=== PATIENT | male | born 1930 | race Caucasian/White ===

== ENCOUNTER 2017-01-17 15:13 | Inpatient (IN) | payer OTHER ==
[~2017-01-17] VITALS: Ht 172.7 cm; Wt 68.5 kg
[~2017-01-17 15:13] MED LIST: AMIO200T4 PO; CITA10TA4 PO; CLOP1TAB15 PO; FAMO20TA9 PO; FRS/40 PO; GLC/500 PO; LEVO75TA PO; MAGN400T6 PO; METO5TAB2 PO; NTRGSL/4 SL; OXGN; POLY335025 PO; POTA20TA13 PO; ROSU5TAB PO
[2017-01-17] MEDS ORDERED: PILO5TAB10 PO (16:02)
[2017-01-17] MEDS ORDERED: OXGN (16:02)
[2017-01-17] MEDS ORDERED: CARV3.122 PO (16:02)
[2017-01-17] MEDS ORDERED: LEVO100T PO (16:02)
[2017-01-17 16:35] LABS: URINE APPEARANCE CLEAR (CLEAR); URINE BILIRUBIN NEG (NEG); URINE COLOR DK YELLOW; URINE NITRITE NEG (NEG); URINE SPECIFIC GRAVITY 1.022 (1.000-1.030); UROBILINOGEN NEG (NEG)
[2017-01-17 16:41] LABS: MANUAL MICROSCOPIC REQUIRED? NO; REVIEW REQ? NO
--- NOTE | 2017-01-17 16:56 | DIAGNOSTIC IMAGING REPORT ---
CHEST ONE VIEW PORTABLE CLINICAL HISTORY: Cough. Hypoxia. COMPARISON STUDY: Chest radiograph July 23, 2013. FINDINGS: There are median sternotomy wires. Moderate cardiomegaly is unchanged. 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 There is no pneumothorax. Hazy left basilar opacity likely reflects epicardial fat pad. Right lower lung opacity is noted. There is a possible small right pleural effusion. IMPRESSION: 1. Right infrahilar opacity. Atelectasis is favored although consolidation could appear similar. 2. Moderate cardiomegaly with redemonstration of a peripherally calcified left ventricular apical aneurysm. No evidence of pulmonary edema. 3. Possible small right pleural effusion. Electronically signed by: Aureliano Liu M.D. 01/17/2017 4:55 PM Dictated Date/Time: 01/17/2017 4:51 PM
[2017-01-17] MEDS ORDERED: LEVAQUIN 750MG / 150ML D5W IV STA (17:14)
[2017-01-17 17:15] LABS: BASO % 0.3 %; BASO ABS # 0.02 K/uL (0-0.2); COMPLETE YES; EOS % 0.1 %; HEMATOCRIT 40.1 % (42-52); IG% 0.1 %; LYMPH % 15.9 %; LYMPH ABS # 1.07 K/uL (1.2-3.4); MEAN CELL VOLUME 95.7 fL (80-100); MEAN CORPUSCULAR HEMOGLOBIN 29.8 pg (25-34); MEAN CORPUSCULAR HGB CONC 31.2 g/dl (32-36); MEAN PLATELET VOLUME 10.7 fL (7.4-10.4); MONO % 14.4 %; NEUT % 69.2 %; PLATELET COUNT 209 K/uL (130-400); RED BLOOD COUNT 4.19 M/uL (4.7-6.1); WHITE BLOOD COUNT 6.73 K/uL (4.8-10.8)
[2017-01-17 17:36] LABS: BUN/CREATININE RATIO 19.2 (10-20); CALCIUM 8.6 mg/dl (8.5-10.1); CREATININE 1.3 mg/dl (0.60-1.40); MAGNESIUM 2.5 mg/dl (1.8-2.4); POTASSIUM 4.6 mmol/L (3.5-5.1)
[2017-01-17 17:47] LABS: CKMB/CK RATIO 0.9 (0-3.0); THYROID STIMULATING HORMONE 1.19 uIu/ml (0.300-4.500)
[2017-01-17] MEDS ORDERED: CONSULT PHARMACY STA (19:27)
[2017-01-17] MEDS ORDERED: ALBUT/IPRATROP 3MG/0.5MG NEB 3 ML VIAL INH PRN (19:30)
[2017-01-17] MEDS ORDERED: ACETAMINOPHEN 325 MG TAB PO PRN (19:30)
[2017-01-17] MEDS ORDERED: ONDANSETRON INJ 2 MG/ML 2 ML VIAL IV PRN (19:30)
[2017-01-17] MEDS ORDERED: LEVOFLOXACIN CONSULT ACTIVE PRN (19:45)
[2017-01-17] MEDS ORDERED: GLUCOSE 10 TABS/TUBE PO PRN (19:45)
[2017-01-17] MEDS ORDERED: GLUCOSE 40% GEL 15 GM TUBE PO PRN (19:45)
[2017-01-17] MEDS ORDERED: GLUCAGON FOR INJ 1 MG VIAL SQ PRN (19:45)
[2017-01-17] MEDS ORDERED: DEXTROSE 50% 50 ML SYR IV PRN (19:45)
[2017-01-17] MEDS ORDERED: PIPERACILL/TAZOBAC CONSULT ACTIVE PRN (19:45)
[2017-01-17] MEDS ORDERED: NITROGLYCERIN 0.4 MG SL PER TAB CHARGE SL SCH (19:45)
--- NOTE | 2017-01-17 19:56 | History and Physical ---
History & Physical Date & Time of Service: Jan 17, 2017 at 19:33 Chief Complaint: Cold W/Sorethroat X 2 Days, Weakness, Not Eating Primary Care Physician: Erich Moreno M.D. History of Present Illness Source: patient, family, clinic records, hospital records Patient seen and examined. 86 year old male with complex PMHx including, PAF, CAD s/p CABG, stent, systolic CHF, h/o CVA, CKD stage 3, DM2, h/o oral CA and other problems listed below presents to the ED complaining of sore throat, cough x 4 days. Patient reports his throat feels very sore. He reports associated cough that is wet but nonproductive. He states he hasn't been feeling well and feels generally weak so he came to the ED for further evaluation. He has a history of oral CA s/p surgery and he states he chokes almost every time he eats. He denies fevers, chills, rhinorrhea, chest pain, SOB , nausea, vomiting, diarrhea, dysuria, calf pain and edema. He does not use oxygen at home. He denies sick contacts. In the ED patient is hypoxic otherwise VS are stable. CXR shows infiltrate. There is no leukocytosis, PRP is unremarkable. He received supplemental oxygen and levaquin. He feels much better and is resting comfortably. He will be admitted for further workup and treatment. Past Medical/Surgical History Medical Problems: (1) Atrial fibrillation Status: Chronic (2) BPH (benign prostatic hyperplasia) Status: Chronic (3) Carotid stenosis Status: Chronic (4) CKD (chronic kidney disease), stage III Status: Chronic (5) Coronary artery disease Status: Chronic (6) CVA (cerebrovascular accident) Status: Resolved (7) Depression Status: Chronic (8) DM2 (diabetes mellitus, type 2) Status: Chronic (9) HLD (hyperlipidemia) Status: Chronic (10) HTN (hypertension) Status: Chronic (11) Hypertension Status: Chronic (12) Hypothyroid Status: Chronic (13) Lymphoma Status: Resolved (14) Oral mass Status: Chronic (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 (16) Skin lesion Status: Chronic (17) Status post left heart catheterization (LHC) Status: Chronic (18) Stroke Status: Chronic (19) Systolic congestive heart failure Permanent Comment: echo 12/13/09 demonstrated LVEF 15-20% Status: Chronic Surgical Problems: (1) H/O endarterectomy Status: Chronic (2) H/O neck surgery Status: Chronic (3) H/O oral surgery Status: Chronic (4) H/O splenectomy Status: Chronic (5) History of appendectomy Status: Chronic (6) History of gastric surgery Status: Chronic (7) History of mandibular surgery Status: Chronic (8) History of pancreatic surgery Status: Chronic (9) Hx of CABG Status: Chronic (10) S/P cholecystectomy Status: Chronic Family History FH: cancer FH: heart disease Social History Smoking Status: Never Smoker Alcohol Use: none Marital Status: Housing status: lives with family Occupational Status: retired Immunizations History of Influenza Vaccine: Yes Influenza Vaccine Date: Jul 21, 2010 History of Tetanus Vaccine?: Unknown History of Pneumococcal: No Pneumococcal Date: Oct 29, 2005 History of Hepatitis B Vaccine: Unknown Multi-Drug Resistant Organisms History of MDRO: No Allergies Coded Allergies: Aspirin (Verified Adverse Reaction, Severe, INCREASED BLEEDING, 01/17/17) Atorvastatin (Verified Adverse Reaction, Unknown, JOINT PAIN, 01/17/17) Simvastatin (Verified Adverse Reaction, Unknown, JOINT PAIN, 01/17/17) Home Medications Scheduled Amiodarone Hcl (Cordarone), 100 MG PO DAILY Carvedilol (Coreg), 3.125 MG PO BIDM Citalopram Hydrobromide (Citalopram Hydrobromide), 10 MG PO DAILY Clopidogrel (Plavix), 75 MG PO DAILY Furosemide (Lasix), 20 MG PO BID Levothyroxine Sodium (Synthroid), 100 MCG PO QAM Magnesium Oxide (Mag-Ox), 400 MG PO QAM Metformin Hcl (Glucophage), 500 MG PO BID Metoclopramide Hcl (Metoclopramide Hcl), 5 MG PO AC Nitroglycerin (Nitrostat), 0.4 MG SL PRN Pilocarpine (Salagen), 5 MG PO QAM Rosuvastatin Calcium (Crestor), 5 MG PO Q2D Review of Systems Constitutional: + weakness, No chills, No fever Eyes: No worsening of vision ENT: + sore throat, No nasal symptoms Respiratory: + cough, + sputum, No hemoptysis, No shortness of breath Cardiovascular: No chest pain, No edema Abdomen: No constipation, No diarrhea, No nausea, No pain, No vomiting Musculoskeletal: No calf pain, No swelling Genitourinary - Male: No dysuria Neurologic: No numbness/tingling, No vertigo Psychiatric: No depression symptoms Endocrine: No excessive thirst, No fatigue Hematologic / Lymphatic: No abnormal bleeding/bruising, No clotting problems Integumentary: No itch, No rash Allergic / Immunologic: No environmental allergies Physical Exam Vital Signs Date Time Temp Pulse Resp B/P Pulse Ox O2 Delivery O2 Flow Rate FiO2 01/17/17 18:47 70 20 129/74 94 Room Air 01/17/17 17:06 72 18 144/95 92 Nasal Cannula 4.0 01/17/17 15:44 72 01/17/17 15:29 93 Nasal Cannula 2.0 01/17/17 15:27 72 20 144/65 79 Room Air 01/17/17 15:27 93 Nasal Cannula 2.0 01/17/17 15:16 37.4 73 20 133/66 85 Room Air General Appearance: + pertinent finding (Very pleasant WD/WN 86 year old male lying in bed in NAD with son at bedside ) Head: normocephalic, atraumatic Eyes: PERRL, EOMI, sclerae normal ENT: hearing grossly normal, + pharyngeal erythema, + pertinent finding ( evidence of oral surgery right side) Neck: supple, no JVD Respiratory/Chest: chest non-tender, no respiratory distress, no accessory muscle use, + crackles (rights sided crackles, trace left basilar crackles ) Cardiovascular: regular rate, rhythm, no edema, no gallop, no JVD, no murmur, normal peripheral pulses Abdomen/GI: normal bowel sounds, non tender, soft Back: normal inspection, no muscle spasm Extremities/Musculoskelatal: no calf tenderness, normal capillary refill, no pedal edema Neurologic/Psych: alert, oriented x 3, + pertinent finding (no focal deficits noted on gross exam ) Skin: normal color, warm/dry, no rash Diagnostics Laboratory Results Results Past 24 Hours Test 01/17/17 16:10 01/17/17 17:04 01/17/17 17:11 Range/Units Urine Color DK YELLOW Urine Appearance CLEAR CLEAR Urine pH 5.0 4.5-7.5 Urine Specific [place] 1.022 1.000-1.030 Urine Protein NEG NEG Urine Glucose (UA) NEG NEG Urine Ketones 1+ NEG Urine Occult Blood NEG NEG Urine Nitrite NEG NEG Urine Bilirubin NEG NEG Urine Urobilinogen NEG NEG Urine Leukocyte Esterase NEG NEG White Blood Count 6.73 4.8-10.8 K/uL Red Blood Count 4.19 4.7-6.1 M/uL Hemoglobin 12.5 14.0-18.0 g/dL Hematocrit 40.1 42-52 % Mean Corpuscular Volume 95.7 80-100 fL Mean Corpuscular Hemoglobin 29.8 25-34 pg Mean Corpuscular Hemoglobin Concent 31.2 32-36 g/dl Platelet Count 209 130-400 K/uL Mean Platelet Volume 10.7 7.4-10.4 fL Neutrophils (%) (Auto) 69.2 % Lymphocytes (%) (Auto) 15.9 % Monocytes (%) (Auto) 14.4 % Eosinophils (%) (Auto) 0.1 % Basophils (%) (Auto) 0.3 % Neutrophils # (Auto) 4.65 1.4-6.5 K/uL Lymphocytes # (Auto) 1.07 1.2-3.4 K/uL Monocytes # (Auto) 0.97 0.11-0.59 K/uL Eosinophils # (Auto) 0.01 0-0.5 K/uL Basophils # (Auto) 0.02 0-0.2 K/uL RDW Standard Deviation 51.6 36.4-46.3 fL RDW Coefficient of Variation 14.8 11.5-14.5 % Immature Granulocyte % (Auto) 0.1 % Immature Granulocyte # (Auto) 0.01 0.00-0.02 K/uL Sodium Level 138 136-145 mmol/L Potassium Level 4.6 3.5-5.1 mmol/L Chloride Level 98 98-107 mmol/L Carbon Dioxide Level 34 21-32 mmol/L Anion Gap 6.0 3-11 mmol/L Blood Urea Nitrogen 25 7-18 mg/dl Creatinine 1.30 0.60-1.40 mg/dl Est Creatinine Clear Calc Drug Dose 38.7 ml/min Estimated GFR () 56.9 Estimated GFR (Non- 49.1 BUN/Creatinine Ratio 19.2 10-20 Random Glucose 125 70-99 mg/dl Calcium Level 8.6 8.5-10.1 mg/dl Magnesium Level 2.5 1.8-2.4 mg/dl Total Bilirubin 0.9 0.2-1 mg/dl Direct Bilirubin 0.3 0-0.2 mg/dl Aspartate Amino Transf (AST/SGOT) 27 15-37 U/L Alanine Aminotransferase (ALT/SGPT) 23 12-78 U/L Alkaline Phosphatase 71 45-117 U/L Total Creatine Kinase 141 39-308 U/L Creatine Kinase MB 1.2 0.5-3.6 ng/ml Creatine Kinase MB Ratio 0.9 0-3.0 Troponin I 0.021 0-0.045 ng/ml Total Protein 7.7 6.4-8.2 gm/dl Albumin 3.3 3.4-5.0 gm/dl Thyroid Stimulating Hormone (TSH) 1.190 0.300-4.500 uIu/ml Bedside Lactic Acid Venous 1.70 0.90-1.70 mmol/L Microbiology Results 01/17/17 Blood Culture, Received Pending 01/17/17 Blood Culture, Received Pending 01/17/17 Group A Streptococcus Screen - Final, Resulted SPECIMEN NEGATIVE FOR GROUP A BETA ST... 01/17/17 Group A Streptococcus Screen ([facility]), Resulted Pending 01/17/17 Urine Culture, Received Pending Diagnostic Radiology CXR Per radiologist read: IMPRESSION: 1. Right infrahilar opacity. Atelectasis is favored although consolidation could appear similar. 2. Moderate cardiomegaly with redemonstration of a peripherally calcified left ventricular apical aneurysm. No evidence of pulmonary edema. 3. Possible small right pleural effusion. EKG Sinus rhythm with 1st degree AV block, 74 BPM, Qtc 486 Impression Assessment and Plan 86 year old male with multiple comorbid conditions presents to the ED complaining of sorethroat, cough, generalized weakness. CXR with infiltrate. COMMUNITY ACQUIRED PNEUMONIA VERSUS ASPIRATION PNEUMONIA -Admit to tele -high risk for aspiration in setting of previous oral CA and surgery. States he chokes often -no leukocytosis, lactate normal -Empirically treat with Zosyn and Levaquin, pharmacy consulted for dosing -Check blood cultures, sputum cultures -PCR flu pending -supplemental oxygen prn -Duonebs prn SOB -dysphagia screening, aspiration precautions -Speech therapy eval pending -Man thick liquids for now -CBC, PRP in AM ACUTE HYPOXIC RESPIRATORY FAILURE 85% on RA, saturating well on 2L -likely secondary to acute illness -duonebs prn -treatment as above -continue supplemental oxygen as needed, if unable to wean may need 2 step prior to discharge DM2 -A1c pending -Hold po diabetic agents -SSI coverage -BSG AC HS CAD S/P CABG -Stable -follows with [facility] -continue BB, Statin, Plavix SYSTOLIC CHF -LVEF 20-25% -appears euvolemic, VSS -no indication for IVFs at this time -continue Lasix CKD STAGE 3 -stable -avoid nephrotoxic agents as able -follow PRP HLD -continue statin HTN -stable -continue BB, lasix PAF -in sinus rhythm -continue Amiodarone, BB -monitor in tele DEPRESSION -continue Celexa HYPOTHYROIDISM -continue Synthroid H/O LYMPHOMA -intraabdominal, s/p surgery -stable per family H/O ORAL CA -s/p surgery radiation -stable per family DVT PROPHYLAXIS: Sq Lovenox CODE STATUS: LEVEL 3 NO MECHANICAL VENTILATION per my discussion with the patient and his family DISPO:In my clinical judgment this beneficiary meets acute admission criteria, established by [facility], that includes being hospitalized through two midnights. Patient seen in collaboration with Dr. Zaragoza Attending Note: Patient is a 86 yr old male with multiple comorbidities presents with history of worsening weakness, cough and sorethroat. Denies any history of chest pain SOB but he was found to be hypoxic while in ED which improved with supplemental oxygen. He has h/o oral cancer S/P reconstructive surgery and states he chokes on food on most occasions. Denies any fever, chills, sick contacts. Physical Exam: Vitals signs as noted above General Appearance:Moderately built and nourished, no apparent distress Head: normocephalic, Atraumatic, + s/p reconstructive oral surgery Eyes: normal inspection, EOMI, PERRL Neck: supple, Trachea midline Respiratory/Chest: Normal breath sounds, B/L rhonchi Cardiovascular: S1, S2, No murmur Abdomen/GI:Soft, Non tender, Bowel sounds present Extremities/Musculoskelatal:normal inspection, no edema Neurologic/Psych:AAOX3, grossly no focal neurological deficits Skin:normal color,warm S/P mid sternal post surgical scar Assessment and Plan: Acute Hypoxic respiratory Failure CAP/ ? Possible Aspiration pneumonia Admit to Tele Broad spectrum antibiotics to cove anaerobes/atypical Check for FLu Blood/Sputum cultures No signs of sepsis Supplemental Oxygen, Duonebs PRN Screen for aspiration Aspiration precautions I personally reviewed the record. Patient is interviewed and examined at bedside. Patient's care is coordinated with Mary Siddiqui PA-C. Please refer to the documentation above for details of patient's presentation and for discussion of other issues. VTE Prophylaxis VTE Risk Assessment Done? Y/N: Yes Risk Level: Moderate
[2017-01-17 21:05] LABS: INR 1.1 (0.9-1.1); PROTHROMBIN TIME (PATIENT) 11.9 SECONDS (9.0-12.0)
[2017-01-17] MEDS ORDERED: PIPERACILL/TAZOBAC IV 3.375 GM in DEXTROSE 5% 100ML IV ONE (21:15)
[2017-01-17 21:24] VITALS: BP 145/80; PULSE 68; TEMP 36.9; Ht 172.7 cm; Wt 68.5 kg
[2017-01-17 21:41] VITALS: O2SAT 97
[2017-01-17] MEDS: FUROSEMIDE 20 MG TAB PO SCH (21:50)
[2017-01-17] MEDS: DOCUSATE SODIUM 100 MG CAP PO SCH (21:50)
[2017-01-17 22:09] LABS: INFLUENZA A PCR Neg for Influ A (NEG); INFLUENZA B PCR Neg for Influ B (NEG)
[2017-01-17] MEDS: INSULIN ASPART 100 UNITS/ML 3 ML PEN SC SCH (22:48)
--- NOTE | 2017-01-17 22:58 | EMERGENCY ROOM VISIT NOTE ---
History Report prepared by Bertram: Manuelito Garza Under the Supervision of: Dr. Bayron Moyer M.D. First contact with patient: 15:33 Chief Complaint: WEAKNESS Stated Complaint: COLD W/SORETHROAT X 2 DAYS, WEAKNESS, NOT EATING Nursing Triage Summary: Per the son "weaker than usual". Sore throat. No fever that they are aware of . History of Present Illness The patient is an 86 year old male who presents to the Emergency Room with complaints of worsening weakness that the patient has been experiencing for the past two days. Per the patient's son, the patient developed a cough and cold on Wednesday, four days prior to arrival. His cough is producing mucous. He also complains of a sorethroat. Upon arrival to the emergency department the patient was 79% oxygen saturation on room air. The patient has a history of stroke, pneumonia, atrial fibrillation, heart failure, and oral cancer. He has had a portion of his jaw removed following the oral cancer. He has never had any issues aspiration following this procedure. He denies LOC, headache, fevers, chills, diaphoresis, visual changes, neck pain, chest pain, nausea, vomiting, abdominal pain, back pain, melena, hematochezia, urinary symptoms, numbness, weakness, lymphadenopathy, rash, or other complaints. Source of History: patient, family Onset: two days Position: other (Global) Quality: other (Weakness ) Timing: worsening Associated Symptoms: + cough, + sorethroat Review of Systems See HPI for pertinent positives and negatives. A total of ten systems were reviewed and were otherwise negative. 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 Social History Smoking Status: Never Smoker Marital Status: Occupation Status: retired Current/Historical Medications Scheduled Amiodarone Hcl (Cordarone), 100 MG PO DAILY Carvedilol (Coreg), 3.125 MG PO BIDM Citalopram Hydrobromide (Citalopram Hydrobromide), 10 MG PO DAILY Clopidogrel (Plavix), 75 MG PO DAILY Furosemide (Lasix), 20 MG PO BID Levothyroxine Sodium (Synthroid), 100 MCG PO QAM Magnesium Oxide (Mag-Ox), 400 MG PO QAM Metformin Hcl (Glucophage), 500 MG PO BID Metoclopramide Hcl (Metoclopramide Hcl), 5 MG PO AC Nitroglycerin (Nitrostat), 0.4 MG SL PRN Pilocarpine (Salagen), 5 MG PO QAM Rosuvastatin Calcium (Crestor), 5 MG PO Q2D Allergies Coded Allergies: Aspirin (Verified Adverse Reaction, Severe, INCREASED BLEEDING, 01/17/17) Atorvastatin (Verified Adverse Reaction, Unknown, JOINT PAIN, 01/17/17) Simvastatin (Verified Adverse Reaction, Unknown, JOINT PAIN, 01/17/17) Physical Exam Vital Signs Date Time Temp Pulse Resp B/P Pulse Ox O2 Delivery O2 Flow Rate FiO2 01/17/17 18:47 70 20 129/74 94 Room Air 01/17/17 17:06 72 18 144/95 92 Nasal Cannula 4.0 01/17/17 15:44 72 01/17/17 15:29 93 Nasal Cannula 2.0 01/17/17 15:27 72 20 144/65 79 Room Air 01/17/17 15:27 93 Nasal Cannula 2.0 01/17/17 15:16 37.4 73 20 133/66 85 Room Air Physical Exam GENERAL: Awake, alert, well-appearing, in no distress The patient does have a wet cough present on exam. HENT: Normocephalic, atraumatic. mild posterior oropharynx erythema. There are surgical changes to the right side of the mouth. EYES: Normal conjunctiva. Sclera non-icteric. NECK: Supple. No nuchal rigidity. FROM. No JVD. RESPIRATORY: Rhonchi present bilaterally, worse on the right. CARDIAC: Regular rate, normal rhythm. Extremities warm and well perfused. Pulses equal. ABDOMEN: Soft, non-distended. No tenderness to palpation. No rebound or guarding. No masses. RECTAL: Deferred. MUSCULOSKELETAL: Chest examination reveals no tenderness. The back is symmetrical on inspection without obvious abnormality. There is no CVA tenderness to palpation. No joint edema. LOWER EXTREMITIES: Calves are equal size bilaterally and non-tender. No edema. No discoloration. NEURO: Normal sensorium. No sensory or motor deficits noted. SKIN: No rash or jaundice noted. Medical Decision & Procedures ER Provider Diagnostic Interpretation: Radiology results as stated below per my review and radiologist interpretation: CHEST ONE VIEW PORTABLE CLINICAL HISTORY: Cough. Hypoxia. COMPARISON STUDY: Chest radiograph July 23, 2013. FINDINGS: There are median sternotomy wires. Moderate cardiomegaly is unchanged. 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 There is no pneumothorax. Hazy left basilar opacity likely reflects epicardial fat pad. Right lower lung opacity is noted. There is a possible small right pleural effusion. IMPRESSION: 1. Right infrahilar opacity. Atelectasis is favored although consolidation could appear similar. 2. Moderate cardiomegaly with redemonstration of a peripherally calcified left ventricular apical aneurysm. No evidence of pulmonary edema. 3. Possible small right pleural effusion. Electronically signed by: Aureliano Liu M.D. 01/17/2017 4:55 PM Dictated Date/Time: 01/17/2017 4:51 PM Laboratory Results 01/17/17 17:04 Red Blood Count 4.19, Mean Corpuscular Volume 95.7, Mean Corpuscular Hemoglobin 29.8, Mean Corpuscular Hemoglobin Concent 31.2, Mean Platelet Volume 10.7, Neutrophils (%) (Auto) 69.2, Lymphocytes (%) (Auto) 15.9, Monocytes (%) (Auto) 14.4, Eosinophils (%) (Auto) 0.1, Basophils (%) (Auto) 0.3, Neutrophils # (Auto ) 4.65, Lymphocytes # (Auto) 1.07, Monocytes # (Auto) 0.97, Eosinophils # (Auto ) 0.01, Basophils # (Auto) 0.02 01/17/17 17:04 Test 01/17/17 16:10 01/17/17 17:04 01/17/17 17:11 Urine Color DK YELLOW Urine Appearance CLEAR (CLEAR) Urine pH 5.0 (4.5-7.5) Urine Specific [place] 1.022 (1.000-1.030) Urine Protein NEG (NEG) Urine Glucose (UA) NEG (NEG) Urine Ketones 1+ (NEG) Urine Occult Blood NEG (NEG) Urine Nitrite NEG (NEG) Urine Bilirubin NEG (NEG) Urine Urobilinogen NEG (NEG) Urine Leukocyte Esterase NEG (NEG) White Blood Count 6.73 K/uL (4.8-10.8) Red Blood Count 4.19 M/uL (4.7-6.1) Hemoglobin 12.5 g/dL (14.0-18.0) Hematocrit 40.1 % (42-52) Mean Corpuscular Volume 95.7 fL (80-100) Mean Corpuscular Hemoglobin 29.8 pg (25-34) Mean Corpuscular Hemoglobin Concent 31.2 g/dl (32-36) Platelet Count 209 K/uL (130-400) Mean Platelet Volume 10.7 fL (7.4-10.4) Neutrophils (%) (Auto) 69.2 % Lymphocytes (%) (Auto) 15.9 % Monocytes (%) (Auto) 14.4 % Eosinophils (%) (Auto) 0.1 % Basophils (%) (Auto) 0.3 % Neutrophils # (Auto) 4.65 K/uL (1.4-6.5) Lymphocytes # (Auto) 1.07 K/uL (1.2-3.4) Monocytes # (Auto) 0.97 K/uL (0.11-0.59) Eosinophils # (Auto) 0.01 K/uL (0-0.5) Basophils # (Auto) 0.02 K/uL (0-0.2) RDW Standard Deviation 51.6 fL (36.4-46.3) RDW Coefficient of Variation 14.8 % (11.5-14.5) Immature Granulocyte % (Auto) 0.1 % Immature Granulocyte # (Auto) 0.01 K/uL (0.00-0.02) Prothrombin Time 11.9 SECONDS (9.0-12.0) Prothromb Time International Ratio 1.1 (0.9-1.1) Activated Partial Thromboplast Time 26.1 SECONDS (21.0-31.0) Partial Thromboplastin Ratio 1.0 Anion Gap 6.0 mmol/L (3-11) Est Creatinine Clear Calc Drug Dose 38.7 ml/min Estimated GFR () 56.9 Estimated GFR (Non- 49.1 BUN/Creatinine Ratio 19.2 (10-20) Calcium Level 8.6 mg/dl (8.5-10.1) Magnesium Level 2.5 mg/dl (1.8-2.4) Total Bilirubin 0.9 mg/dl (0.2-1) Direct Bilirubin 0.3 mg/dl (0-0.2) Aspartate Amino Transf (AST/SGOT) 27 U/L (15-37) Alanine Aminotransferase (ALT/SGPT) 23 U/L (12-78) Alkaline Phosphatase 71 U/L (45-117) Total Creatine Kinase 141 U/L (39-308) Creatine Kinase MB 1.2 ng/ml (0.5-3.6) Creatine Kinase MB Ratio 0.9 (0-3.0) Troponin I 0.021 ng/ml (0-0.045) Total Protein 7.7 gm/dl (6.4-8.2) Albumin 3.3 gm/dl (3.4-5.0) Thyroid Stimulating Hormone (TSH) 1.190 uIu/ml (0.300-4.500) Bedside Lactic Acid Venous 1.70 mmol/L (0.90-1.70) Laboratory results reviewed by me Medications Administered Medications (Trade) Dose Ordered Sig/Juliet Route Start Time Stop Time Status Last Admin Dose Admin Levofloxacin (Levaquin / D5W) 750 mg NOW STAT IV 01/17/17 17:14 01/17/17 17:16 DC 01/17/17 17:37 750 MG ECG Indication: weakness Rate (beats per minute): 74 Rhythm: sinus rhythm Findings: 1st degree AV block, Q waves (Septal, inferior), no acute ischemic change, other (IV conduction block) ED Course 1553: The patient was evaluated in room B10. A complete history and physical exam was performed. 1714: Ordered Levofloxacin 750 mg IV. 1717: I reevaluated the patient at this time. He is doing well. 1815: I placed a page for the [facility] Hospitalist at this time. 1830: I discussed the case with Antoinette Sheets, she will evaluate the patient for further treatment. Medical Decision Triage Nursing notes reviewed. The patient's presentation and history were concerning for flulike symptoms. Etiologies such as pneumonia, COPD, reactive airway disease, CHF, cardiac ischemia, pulmonary embolism, pneumothorax, musculoskeletal, infections, gastrointestinal, as well as others were entertained. The patient was evaluated. Noted a sore throat and cold symptoms for 2 days. On arrival he was found to be hypoxic. He responded well to supplemental oxygen. His lungs were congested. The patient had an x-ray performed and there was concerns for possible infiltrate. The patient had cultures obtained and was given IV Levaquin. His CBC and urinalysis were unremarkable. Cardiac markers were unremarkable as well. The patient was doing relatively well with supplemental oxygen but will need further management in the hospital. Consultation was made with internal medicine. The patient was evaluated in the Emergency Room for further management. The chart was completed utilizing [employer] Speech voice recognition software. Grammatical errors, random word insertions, pronoun errors, and incomplete sentences are an occasional consequence of this system due to software limitations, ambient noise, and hardware issues. Any formal questions or concerns about the content, text, or information contained within the body of this dictation should be directly addressed to the physician for clarification. Consults Time Called: 1824 Consulting Physician: Antoinette Sheets Returned Call: 1830 I discussed the case with Antoinette Sheets, she will evaluate the patient for further treatment. Impression Primary Impression: Hypoxia Additional Impressions: Pneumonia Weakness Scribe Attestation The scribe's documentation has been prepared under my direction and personally reviewed by me in its entirety. I confirm that the note above accurately reflects all work, treatment, procedures, and medical decision making performed by me. Departure Information Dispostion Being Evaluated By Hospitalist Referrals Erich Moreno M.D. (PCP) Patient Instructions My [facility] Problem Qualifiers
[2017-01-17] MEDS: ENOXAPARIN 30 MG/0.3 ML SYR SC SCH (23:56)
[2017-01-18] VITALS (8 sets, daily range): BP systolic 104–146; BP diastolic 59–77; PULSE 60–77; TEMP 36.4–37; O2SAT 93–97
[2017-01-18] MEDS: PIPERACILL/TAZOBAC IV 3.375 GM in DEXTROSE 5% 100ML IV SCH ×3 (03:54→20:32)
[2017-01-18] MEDS: METOCLOPRAMIDE HCL 5 MG TAB PO SCH ×3 (06:14→17:25)
[2017-01-18] MEDS: LEVOTHYROXINE 100 MCG TAB PO SCH (06:40)
[2017-01-18] MEDS: INSULIN ASPART 100 UNITS/ML 3 ML PEN SC SCH ×4 (07:00→20:46)
[2017-01-18] MEDS: FUROSEMIDE 20 MG TAB PO SCH ×2 (07:48→20:46)
[2017-01-18] MEDS: CITALOPRAM 20 MG TAB PO SCH (07:49)
[2017-01-18] MEDS: DOCUSATE SODIUM 100 MG CAP PO SCH ×2 (07:49→20:46)
[2017-01-18] MEDS: CLOPIDOGREL BISULFATE 75 MG TAB PO SCH (07:49)
[2017-01-18] MEDS: MAGNESIUM OXIDE 400 MG TAB PO SCH (07:49)
[2017-01-18] MEDS: CARVEDILOL 3.125 MG TAB PO SCH ×2 (07:50→17:25)
[2017-01-18] MEDS: PILOCARPINE HCL 5 MG TAB PO SCH (07:50)
[2017-01-18] MEDS: AMIODARONE 200 MG TAB PO SCH (07:50)
[2017-01-18] MEDS: ROSUVASTATIN CALCIUM 10 MG TAB PO SCH (07:50)
[2017-01-18 07:56] LABS: HEMATOCRIT 38.9 % (42-52); MEAN CELL VOLUME 95.3 fL (80-100); MEAN CORPUSCULAR HEMOGLOBIN 30.4 pg (25-34); MEAN CORPUSCULAR HGB CONC 31.9 g/dl (32-36); MEAN PLATELET VOLUME 11.2 fL (7.4-10.4); PLATELET COUNT 201 K/uL (130-400); RED BLOOD COUNT 4.08 M/uL (4.7-6.1); WHITE BLOOD COUNT 6.22 K/uL (4.8-10.8)
[2017-01-18 08:35] LABS: BUN/CREATININE RATIO 15.7 (10-20); CREATININE 1.3 mg/dl (0.60-1.40); POTASSIUM 3.9 mmol/L (3.5-5.1)
[2017-01-18 08:45] LABS: CALCIUM 8.7 mg/dl (8.5-10.1)
--- NOTE | 2017-01-18 09:54 | Progress Note ---
Subjective Date of Service: January 18, 2017. Subjective Pt evaluation today including: conversation w/ patient, physical exam, lab review, review of studies, review of inpatient medication list Saw/examined the patient in room 242-1 He's doing well today; he's off of supplemental oxygen and doing well Cough is not too bad; states his sore throat persists Denies fevers/chills - eager to get up and out of bed Problem List Medical Problems: (1) Hypoxia Status: Acute (2) Pneumonia Status: Acute (3) Weakness Status: Acute Review of Systems Constitutional: + weakness, No chills, No fever ENT: + sore throat, No nasal symptoms, No tinnitus Respiratory: + cough, No dyspnea at rest, No dyspnea on exertion, No hemoptysis , No shortness of breath, No sputum, No wheezing Cardiac: No chest pain, No edema, No palpitations Abdomen: No diarrhea, No nausea, No pain, No vomiting Medications Current Inpatient Medications Medications (Trade) Dose Ordered Sig/Juliet Route Start Time Stop Time Status Last Admin Dose Admin Enoxaparin Sodium (Lovenox Inj) 30 mg Q24H SC 01/17/17 22:00 02/16/17 21:59 01/17/17 23:56 30 MG Acetaminophen (Tylenol Tab) 650 mg Q4H PRN PO 01/17/17 19:30 02/16/17 19:29 Ondansetron HCl (Zofran Inj) 4 mg Q6H PRN IV 01/17/17 19:30 02/16/17 19:29 Albuterol/ Ipratropium (Duoneb) 3 ml Q4R PRN INH 01/17/17 19:30 02/16/17 19:29 Amiodarone HCl (Cordarone Tab) 100 mg DAILY PO 01/18/17 09:00 02/17/17 08:59 01/18/17 07:50 100 MG Carvedilol (Coreg Tab) 3.125 mg BIDM PO 01/18/17 07:30 02/17/17 07:59 01/18/17 07:50 3.125 MG Clopidogrel Bisulfate (plAVix TAB) 75 mg DAILY PO 01/18/17 09:00 02/17/17 08:59 01/18/17 07:49 75 MG Furosemide (Lasix Tab) 20 mg BID PO 01/17/17 21:00 02/16/17 20:59 01/18/17 07:48 20 MG Levothyroxine Sodium (Synthroid Tab) 100 mcg DAILYBB PO 01/18/17 06:00 02/17/17 06:59 01/18/17 06:40 100 MCG Magnesium Oxide (Mag-Ox Tab) 400 mg QAM PO 01/18/17 09:00 02/17/17 08:59 01/18/17 07:49 400 MG Metoclopramide HCl (Reglan Tab) 5 mg AC PO 01/18/17 07:00 02/17/17 07:59 01/18/17 06:14 5 MG Nitroglycerin (Nitrostat Tab) 0.4 mg PRN SL 01/17/17 19:45 02/16/17 19:44 Pilocarpine HCl (Salagen Tab) 5 mg QAM PO 01/18/17 09:00 02/17/17 08:59 01/18/17 07:50 5 MG Rosuvastatin Calcium (Crestor Tab) 5 mg Q2D@0900 PO 01/18/17 09:00 02/17/17 08:59 01/18/17 07:50 5 MG Citalopram Hydrobromide (celeXA TAB) 10 mg DAILY PO 01/18/17 09:00 02/17/17 08:59 01/18/17 07:49 10 MG Insulin Aspart (novoLOG ASPART) SLIDING SCALE If C... ACHS SC 01/17/17 21:00 02/16/17 20:59 Glucose (Glucose 40% Gel) 15-30 GRAMS 15 GRAMS... UD PRN PO 01/17/17 19:45 02/16/17 19:44 Glucose (Glucose Chew Tab) 4-8 Tablets 4 Tabl... UD PRN PO 01/17/17 19:45 02/16/17 19:44 Dextrose (Dextrose 50% 50ML Syringe) 25-50ML OF 50% DW IV FOR... UD PRN IV 01/17/17 19:45 02/16/17 19:44 Glucagon (Glucagon Inj) 1 mg UD PRN SQ 01/17/17 19:45 02/16/17 19:44 Levofloxacin (Consult) 1 ea UD PRN N/A 01/17/17 19:45 02/16/17 19:44 Piperacillin Sod/ Tazobactam Sod (Consult) 1 ea UD PRN N/A 01/17/17 19:45 02/16/17 19:44 Docusate Sodium 100 mg 100 mg BID PO 01/17/17 21:00 02/16/17 20:59 01/18/17 07:49 100 MG Levofloxacin 750 mg/Prmx 150 ml @ 100 mls/hr DAILY@1600 IV 01/19/17 16:00 01/24/17 15:59 Piperacillin Sod/ Tazobactam Sod/ Dextrose (Zosyn Iv/D5 100ml) 115 ml @ 28.75 mls/ hr Q8H IV 01/18/17 04:00 01/25/17 03:59 01/18/17 03:54 28.75 MLS/HR Objective Vital Signs Date Time Temp Pulse Resp B/P Pulse Ox O2 Delivery O2 Flow Rate FiO2 01/18/17 04:00 Nasal Cannula 4.0 01/18/17 03:52 36.9 77 18 146/77 94 3.0 01/18/17 00:16 37.0 66 18 128/67 95 3.0 01/18/17 00:00 Nasal Cannula 4.0 01/18/17 00:00 Nasal Cannula 4.0 01/17/17 21:41 97 Nasal Cannula 4.0 01/17/17 21:24 36.9 68 20 145/80 01/17/17 19:48 63 23 141/77 96 Nasal Cannula 4.0 01/17/17 18:47 70 20 129/74 94 Room Air 01/17/17 17:06 72 18 144/95 92 Nasal Cannula 4.0 01/17/17 15:44 72 01/17/17 15:29 93 Nasal Cannula 2.0 01/17/17 15:27 72 20 144/65 79 Room Air 01/17/17 15:27 93 Nasal Cannula 2.0 01/17/17 15:16 37.4 73 20 133/66 85 Room Air Physical Exam General Appearance: no apparent distress ENT: + pertinent finding (hard of hearing, R lower teeth missing due to previous surgery) Respiratory/Chest: no respiratory distress, no accessory muscle use, + rhonchi , + pertinent finding (scar noted - sternum) Cardiovascular: regular rate, rhythm, no edema, + systolic murmur (left second intercostal space) Abdomen: normal bowel sounds, non tender, soft, + hernia, + pertinent finding ( incisional scar from previous surgery) Extremities: normal inspection, no pedal edema Neurologic/Psychiatric: no motor/sensory deficits, alert, normal mood/affect Skin: normal color Laboratory Results Last 24 Hours Test 01/17/17 16:10 01/17/17 17:04 01/17/17 17:11 01/17/17 20:25 Urine Color DK YELLOW Urine Appearance CLEAR Urine pH 5.0 Urine Specific [place] 1.022 Urine Protein NEG Urine Glucose (UA) NEG Urine Ketones 1+ Urine Occult Blood NEG Urine Nitrite NEG Urine Bilirubin NEG Urine Urobilinogen NEG Urine Leukocyte Esterase NEG White Blood Count 6.73 K/uL Red Blood Count 4.19 M/uL Hemoglobin 12.5 g/dL Hematocrit 40.1 % Mean Corpuscular Volume 95.7 fL Mean Corpuscular Hemoglobin 29.8 pg Mean Corpuscular Hemoglobin Concent 31.2 g/dl Platelet Count 209 K/uL Mean Platelet Volume 10.7 fL Neutrophils (%) (Auto) 69.2 % Lymphocytes (%) (Auto) 15.9 % Monocytes (%) (Auto) 14.4 % Eosinophils (%) (Auto) 0.1 % Basophils (%) (Auto) 0.3 % Neutrophils # (Auto) 4.65 K/uL Lymphocytes # (Auto) 1.07 K/uL Monocytes # (Auto) 0.97 K/uL Eosinophils # (Auto) 0.01 K/uL Basophils # (Auto) 0.02 K/uL RDW Standard Deviation 51.6 fL RDW Coefficient of Variation 14.8 % Immature Granulocyte % (Auto) 0.1 % Immature Granulocyte # (Auto) 0.01 K/uL Prothrombin Time 11.9 SECONDS Prothromb Time International Ratio 1.1 Activated Partial Thromboplast Time 26.1 SECONDS Partial Thromboplastin Ratio 1.0 Sodium Level 138 mmol/L Potassium Level 4.6 mmol/L Chloride Level 98 mmol/L Carbon Dioxide Level 34 mmol/L Anion Gap 6.0 mmol/L Blood Urea Nitrogen 25 mg/dl Creatinine 1.30 mg/dl Est Creatinine Clear Calc Drug Dose 38.7 ml/min Estimated GFR () 56.9 Estimated GFR (Non- 49.1 BUN/Creatinine Ratio 19.2 Random Glucose 125 mg/dl Calcium Level 8.6 mg/dl Magnesium Level 2.5 mg/dl Total Bilirubin 0.9 mg/dl Direct Bilirubin 0.3 mg/dl Aspartate Amino Transf (AST/SGOT) 27 U/L Alanine Aminotransferase (ALT/SGPT) 23 U/L Alkaline Phosphatase 71 U/L Total Creatine Kinase 141 U/L Creatine Kinase MB 1.2 ng/ml Creatine Kinase MB Ratio 0.9 Troponin I 0.021 ng/ml Total Protein 7.7 gm/dl Albumin 3.3 gm/dl Thyroid Stimulating Hormone (TSH) 1.190 uIu/ml Bedside Lactic Acid Venous 1.70 mmol/L Influenza Type A (RT-PCR) Neg for Influ A Influenza Type B (RT-PCR) Neg for Influ B Test 01/17/17 21:58 01/18/17 04:44 Bedside Glucose 139 mg/dl Assessment and Plan This is an 86 year old male with hx. of squamous cell carcinoma of oral cavity, hx. of CVA with residual hemiparesis, CAD s/p CABG and stents, hx. of intraabdominal lymphoma, DM2, CKD stage 3, paroxysmal atrial fibrillation, HTN, HLD, hypothyroidism presents with hypoxia, cough, sore throat Acute Hypoxic Respiratory Failure - resolved patient presented with hypoxia; with O2 sats in the 70s and 80s required supplemental O2 via nasal cannula improvement in oxygen saturation today, and actually has been weaned off of O2 currently on room air, in no distress Pneumonia, likely Aspiration patient has a hx. 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 pneumonia with his presentation of hypoxia, cough, and high risk of aspiration, he is being treated with antibiotics currently on nectar thick and mechanical soft; speech therapy pending aspiration precautions no white count, no fevers; will probably require short course of antibiotics DM2 holding oral agents sliding scale Ha1c pending CAD s/p CABG and stents continue Plavix, statin, and b-nikita currently no chest pain, clinically stable Systolic CHF significantly reduced LVEF at around 20-25% currently seems euvolemic will keep home dose of Lasix and monitor how he does No DONG-I/ARB/Aldactone as per cardiology notes due to intolerance and hyperkalemia CKD stage 3 currently at baseline avoiding nephrotoxic agents when able HLD continue statin HTN continue b-nikita no DONG-I/ARB/Aldactone Paroxysmal Atrial Fibrillation currently in NSR continue b-nikita and amiodarone as per cardiology Depression continue Celexa Hypothyroidism cont. Synthroid Hx. of Intraabdominal Lymphoma s/p surgery DVT ppx Lovenox FULL, NO MECHANICAL VENTILATION
[2017-01-18 09:59] LABS: ESTIMATED AVERAGE GLUCOSE 163 mg/dl; HA1C FLAG Normal (Normal)
[2017-01-18] MEDS ORDERED: MAGIC SWIZZLE PO SCH (17:00)
[2017-01-18] MEDS: LIDOCAINE HCL 2% VISCOUS SOLN 60 ML, DiphenhydrAMINE HCL SYRUP 150 MG, ALUMINUM/MAGNESI... MT SCH ×8 (17:26→20:46)
[2017-01-18] MEDS: ENOXAPARIN 30 MG/0.3 ML SYR SC SCH (20:50)
[2017-01-19] VITALS (11 sets, daily range): BP systolic 101–138; BP diastolic 55–74; PULSE 56–73; TEMP 36.3–37.3; O2SAT 90–96
[2017-01-19] MEDS: PIPERACILL/TAZOBAC IV 3.375 GM in DEXTROSE 5% 100ML IV SCH ×3 (04:12→20:14)
[2017-01-19] MEDS: LEVOTHYROXINE 100 MCG TAB PO SCH (06:07)
[2017-01-19] MEDS: METOCLOPRAMIDE HCL 5 MG TAB PO SCH ×3 (06:07→16:57)
[2017-01-19 07:44] LABS: HEMATOCRIT 38.7 % (42-52); MEAN CELL VOLUME 94.9 fL (80-100); MEAN CORPUSCULAR HEMOGLOBIN 30.6 pg (25-34); MEAN CORPUSCULAR HGB CONC 32.3 g/dl (32-36); MEAN PLATELET VOLUME 11.4 fL (7.4-10.4); PLATELET COUNT 214 K/uL (130-400); RED BLOOD COUNT 4.08 M/uL (4.7-6.1)
[2017-01-19] MEDS: FUROSEMIDE 20 MG TAB PO SCH ×2 (07:46→20:55)
[2017-01-19] MEDS: DOCUSATE SODIUM 100 MG CAP PO SCH ×2 (07:46→20:55)
[2017-01-19] MEDS: MAGNESIUM OXIDE 400 MG TAB PO SCH (07:46)
[2017-01-19] MEDS: CLOPIDOGREL BISULFATE 75 MG TAB PO SCH (07:47)
[2017-01-19] MEDS: PILOCARPINE HCL 5 MG TAB PO SCH (07:47)
[2017-01-19] MEDS: CITALOPRAM 20 MG TAB PO SCH (07:47)
[2017-01-19] MEDS: CARVEDILOL 3.125 MG TAB PO SCH ×2 (07:47→16:58)
[2017-01-19] MEDS: AMIODARONE 200 MG TAB PO SCH (07:48)
[2017-01-19] MEDS: LIDOCAINE HCL 2% VISCOUS SOLN 60 ML, DiphenhydrAMINE HCL SYRUP 150 MG, ALUMINUM/MAGNESI... MT SCH ×16 (07:48→20:56)
[2017-01-19] MEDS: INSULIN ASPART 100 UNITS/ML 3 ML PEN SC SCH ×4 (07:51→20:56)
[2017-01-19 07:53] LABS: BUN/CREATININE RATIO 10.8 (10-20); CALCIUM 8.3 mg/dl (8.5-10.1); CREATININE 1.3 mg/dl (0.60-1.40); POTASSIUM 3.7 mmol/L (3.5-5.1)
--- NOTE | 2017-01-19 08:52 | DIAGNOSTIC IMAGING REPORT ---
CHEST 2 VIEWS ROUTINE CLINICAL HISTORY: f/u opacity; possible pneumonia pneumonia COMPARISON STUDY: 01/17/2017 FINDINGS: Right infrahilar infiltrate. Slight improvement in aeration compared to the prior study. No change in the calcified left ventricular aneurysm. Mild left basilar atelectatic change. Mid and upper lungs are clear. IMPRESSION: Unchanged to slightly improved right infrahilar infiltrate. All remaining components of the study are stable Electronically signed by: Marquis Trevino M.D. 01/19/2017 8:51 AM Dictated Date/Time: 01/19/2017 8:49 AM
--- NOTE | 2017-01-19 09:23 | Progress Note ---
Subjective Date of Service: January 19, 2017. Subjective Pt evaluation today including: conversation w/ patient, physical exam, lab review, review of studies, review of inpatient medication list Saw/examined the patient in room 242 States his sore throat is still present, with some improvement with magic swizzle Mild persistent cough, but no shortness of breath or chest pain Problem List Medical Problems: (1) Hypoxia Status: Acute (2) Pneumonia Status: Acute (3) Weakness Status: Acute Review of Systems Constitutional: + weakness, No chills, No fever ENT: + sore throat Respiratory: + cough, No dyspnea at rest, No dyspnea on exertion, No shortness of breath, No sputum, No wheezing Cardiac: No chest pain, No edema, No palpitations Medications Current Inpatient Medications Medications (Trade) Dose Ordered Sig/Juliet Route Start Time Stop Time Status Last Admin Dose Admin Enoxaparin Sodium (Lovenox Inj) 30 mg Q24H SC 01/17/17 22:00 02/16/17 21:59 01/18/17 20:50 30 MG Acetaminophen (Tylenol Tab) 650 mg Q4H PRN PO 01/17/17 19:30 02/16/17 19:29 Ondansetron HCl (Zofran Inj) 4 mg Q6H PRN IV 01/17/17 19:30 02/16/17 19:29 Albuterol/ Ipratropium (Duoneb) 3 ml Q4R PRN INH 01/17/17 19:30 02/16/17 19:29 Amiodarone HCl (Cordarone Tab) 100 mg DAILY PO 01/18/17 09:00 02/17/17 08:59 01/19/17 07:48 100 MG Carvedilol (Coreg Tab) 3.125 mg BIDM PO 01/18/17 07:30 02/17/17 07:59 01/19/17 07:47 3.125 MG Clopidogrel Bisulfate (plAVix TAB) 75 mg DAILY PO 01/18/17 09:00 02/17/17 08:59 01/19/17 07:47 75 MG Furosemide (Lasix Tab) 20 mg BID PO 01/17/17 21:00 02/16/17 20:59 01/19/17 07:46 20 MG Levothyroxine Sodium (Synthroid Tab) 100 mcg DAILYBB PO 01/18/17 06:00 02/17/17 06:59 01/19/17 06:07 100 MCG Magnesium Oxide (Mag-Ox Tab) 400 mg QAM PO 01/18/17 09:00 02/17/17 08:59 01/19/17 07:46 400 MG Metoclopramide HCl (Reglan Tab) 5 mg AC PO 01/18/17 07:00 02/17/17 07:59 01/19/17 06:07 5 MG Nitroglycerin (Nitrostat Tab) 0.4 mg PRN SL 01/17/17 19:45 02/16/17 19:44 Pilocarpine HCl (Salagen Tab) 5 mg QAM PO 01/18/17 09:00 02/17/17 08:59 01/19/17 07:47 5 MG Rosuvastatin Calcium (Crestor Tab) 5 mg Q2D@0900 PO 01/18/17 09:00 02/17/17 08:59 01/18/17 07:50 5 MG Citalopram Hydrobromide (celeXA TAB) 10 mg DAILY PO 01/18/17 09:00 02/17/17 08:59 01/19/17 07:47 10 MG Insulin Aspart (novoLOG ASPART) SLIDING SCALE If C... ACHS SC 01/17/17 21:00 02/16/17 20:59 01/19/17 07:51 1 UNITS Glucose (Glucose 40% Gel) 15-30 GRAMS 15 GRAMS... UD PRN PO 01/17/17 19:45 02/16/17 19:44 Glucose (Glucose Chew Tab) 4-8 Tablets 4 Tabl... UD PRN PO 01/17/17 19:45 02/16/17 19:44 Dextrose (Dextrose 50% 50ML Syringe) 25-50ML OF 50% DW IV FOR... UD PRN IV 01/17/17 19:45 02/16/17 19:44 Glucagon (Glucagon Inj) 1 mg UD PRN SQ 01/17/17 19:45 02/16/17 19:44 Levofloxacin (Consult) 1 ea UD PRN N/A 01/17/17 19:45 02/16/17 19:44 Piperacillin Sod/ Tazobactam Sod (Consult) 1 ea UD PRN N/A 01/17/17 19:45 02/16/17 19:44 Docusate Sodium 100 mg 100 mg BID PO 01/17/17 21:00 02/16/17 20:59 01/19/17 07:46 100 MG Piperacillin Sod/ Tazobactam Sod 3.375 gm/Dextrose 115 ml @ 28.75 mls/ hr Q8H IV 01/18/17 04:00 01/25/17 03:59 01/19/17 04:12 28.75 MLS/HR Levofloxacin/Prmx 150 ml @ 100 mls/hr Q48H IV 01/19/17 18:00 01/26/17 17:59 Lidocaine HCl/ Diphenhydramine HCl/Al Hydroxide/ Mg Hydroxide/ Glycerin/Barcode (VISCOUS LIDOCAINE 2% Soln/ Benadryl Syrup/ Maalox Susp/ Glycerin Anhydrous Soln) QID MT 01/18/17 17:00 02/17/17 16:59 01/19/17 07:48 5 ML Objective Vital Signs Date Time Temp Pulse Resp B/P Pulse Ox O2 Delivery O2 Flow Rate FiO2 01/19/17 07:09 36.9 69 16 111/64 92 2.0 01/19/17 04:00 37.1 68 21 130/74 93 Nasal Cannula 3.5 01/19/17 04:00 Nasal Cannula 01/19/17 00:00 Nasal Cannula 01/18/17 23:42 36.9 64 20 119/69 94 Nasal Cannula 4.0 01/18/17 20:00 97 Nasal Cannula 01/18/17 19:07 36.5 62 16 107/66 97 Nasal Cannula 3.0 01/18/17 16:00 Room Air 01/18/17 15:35 36.4 62 18 111/67 93 Nasal Cannula 3.0 01/18/17 12:00 36.4 60 19 104/59 93 Nasal Cannula 2.0 01/18/17 12:00 Room Air Physical Exam General Appearance: no apparent distress, + thin ENT: + pertinent finding (R Lower teeth missing; grayish plaques on tongue) Respiratory/Chest: no respiratory distress, no accessory muscle use, + rhonchi (bibasilar) Cardiovascular: regular rate, rhythm, no edema, no murmur Abdomen: normal bowel sounds, non tender, soft Extremities: normal inspection, no pedal edema Neurologic/Psychiatric: no motor/sensory deficits, alert, normal mood/affect Laboratory Results Last 24 Hours Test 01/18/17 16:28 01/18/17 20:03 01/19/17 06:31 01/19/17 06:55 Bedside Glucose 102 mg/dl 131 mg/dl 121 mg/dl White Blood Count 6.00 K/uL Red Blood Count 4.08 M/uL Hemoglobin 12.5 g/dL Hematocrit 38.7 % Mean Corpuscular Volume 94.9 fL Mean Corpuscular Hemoglobin 30.6 pg Mean Corpuscular Hemoglobin Concent 32.3 g/dl RDW Standard Deviation 50.8 fL RDW Coefficient of Variation 14.7 % Platelet Count 214 K/uL Mean Platelet Volume 11.4 fL Nucleated RBC Absolute Count (auto) 0.08 K/uL Nucleated Red Blood Cells % 1.3 % Sodium Level 136 mmol/L Potassium Level 3.7 mmol/L Chloride Level 95 mmol/L Carbon Dioxide Level 34 mmol/L Anion Gap 7.0 mmol/L Blood Urea Nitrogen 14 mg/dl Creatinine 1.30 mg/dl Est Creatinine Clear Calc Drug Dose 38.7 ml/min Estimated GFR () 56.9 Estimated GFR (Non- 49.1 BUN/Creatinine Ratio 10.8 Random Glucose 119 mg/dl Calcium Level 8.3 mg/dl Assessment and Plan This is an 86 year old male with hx. of squamous cell carcinoma of oral cavity, hx. of CVA with residual hemiparesis, CAD s/p CABG and stents, hx. of intraabdominal lymphoma, DM2, CKD stage 3, paroxysmal atrial fibrillation, HTN, HLD, hypothyroidism presents with hypoxia, cough, sore throat Acute Hypoxic Respiratory Failure - resolved patient presented with hypoxia; with O2 sats in the 70s and 80s required supplemental O2 via nasal cannula improvement in oxygen saturation today, and actually has been weaned off of O2 currently on room air, in no distress Pneumonia, likely Aspiration patient has a hx. 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 presented with sore throat as his main concern started magic swizzle with some improvement, though persistent sore throat started fluconazole DM2 holding oral agents sliding scale Ha1c = 7.3% CAD s/p CABG and stents continue Plavix, statin, and b-nikita currently no chest pain, clinically stable Systolic CHF significantly reduced LVEF at around 20-25% currently seems euvolemic will keep home dose of Lasix and monitor how he does No DONG-I/ARB/Aldactone as per cardiology notes due to intolerance and hyperkalemia CKD stage 3 currently at baseline avoiding nephrotoxic agents when able HLD continue statin HTN continue b-nikita no DONG-I/ARB/Aldactone Paroxysmal Atrial Fibrillation currently in NSR continue b-nikita and amiodarone as per cardiology Depression continue Celexa Hypothyroidism cont. Synthroid Hx. of Intraabdominal Lymphoma s/p surgery DVT ppx Lovenox FULL, NO MECHANICAL VENTILATION
[2017-01-19] MEDS ORDERED: FLUCONAZOLE 100 MG TAB PO ONE (10:00)
[2017-01-19] MEDS ORDERED: LEVOFLOXACIN 750MG / D5W IV SCH ×2 (16:00→18:00)
[2017-01-19] MEDS: ENOXAPARIN 30 MG/0.3 ML SYR SC SCH (20:57)
[2017-01-20] VITALS (9 sets, daily range): BP systolic 84–131; BP diastolic 49–79; PULSE 56–97; TEMP 36.6–36.9; O2SAT 91–97
[2017-01-20] MEDS: PIPERACILL/TAZOBAC IV 3.375 GM in DEXTROSE 5% 100ML IV SCH (03:39)
[2017-01-20] MEDS: LEVOTHYROXINE 100 MCG TAB PO SCH (06:07)
[2017-01-20] MEDS: METOCLOPRAMIDE HCL 5 MG TAB PO SCH ×3 (06:07→17:01)
[2017-01-20] MEDS: DOCUSATE SODIUM 100 MG CAP PO SCH ×2 (07:28→20:47)
[2017-01-20] MEDS: AMIODARONE 200 MG TAB PO SCH (07:28)
[2017-01-20] MEDS: FLUCONAZOLE 100 MG TAB PO SCH (07:29)
[2017-01-20] MEDS: FUROSEMIDE 20 MG TAB PO SCH ×2 (07:29→20:47)
[2017-01-20] MEDS: MAGNESIUM OXIDE 400 MG TAB PO SCH (07:29)
[2017-01-20] MEDS: CLOPIDOGREL BISULFATE 75 MG TAB PO SCH (07:29)
[2017-01-20] MEDS: CITALOPRAM 20 MG TAB PO SCH (07:29)
[2017-01-20] MEDS: LIDOCAINE HCL 2% VISCOUS SOLN 60 ML, DiphenhydrAMINE HCL SYRUP 150 MG, ALUMINUM/MAGNESI... MT SCH ×16 (07:30→20:50)
[2017-01-20] MEDS: PILOCARPINE HCL 5 MG TAB PO SCH (07:30)
[2017-01-20] MEDS: ROSUVASTATIN CALCIUM 10 MG TAB PO SCH (07:30)
[2017-01-20] MEDS: CARVEDILOL 3.125 MG TAB PO SCH ×2 (07:30→17:02)
[2017-01-20] MEDS: INSULIN ASPART 100 UNITS/ML 3 ML PEN SC SCH ×4 (07:49→20:53)
[2017-01-20 07:56] LABS: HEMATOCRIT 41.6 % (42-52); MEAN CELL VOLUME 94.5 fL (80-100); MEAN CORPUSCULAR HEMOGLOBIN 30.2 pg (25-34); MEAN PLATELET VOLUME 11.3 fL (7.4-10.4); PLATELET COUNT 204 K/uL (130-400); WHITE BLOOD COUNT 5.46 K/uL (4.8-10.8)
[2017-01-20 09:12] LABS: BUN/CREATININE RATIO 9.6 (10-20); CALCIUM 8.6 mg/dl (8.5-10.1); CREATININE 1.4 mg/dl (0.60-1.40); POTASSIUM 3.6 mmol/L (3.5-5.1)
[2017-01-20] MEDS: AMOXICILLIN/CLAVULANATE TAB 500 MG TAB PO SCH ×2 (13:16→20:46)
[2017-01-20] MEDS: ENOXAPARIN 30 MG/0.3 ML SYR SC SCH (20:46)
--- NOTE | 2017-01-20 23:01 | Progress Note ---
Medicine Progress Note Date & Time of Visit: January 20, 2017 at 11:17. Subjective This is an 86 year old male SOB and hypoxia 2/2 CAP. He has a h/o multiple chronic medical problems. -states that his breathing and coughing is greatly improved since admission -did well with PT therapists today walking the halls with a walker -tolerating PO without difficulty -states that his mouth and throat feel better today -no stated pain or other difficulty with swallowing. -denies weight gain -denies CP, palpitations, abdominal pain, leg swelling or orthopnea. Objective Last 8 Hrs Date Time Temp Pulse Resp B/P Pulse Ox O2 Delivery O2 Flow Rate FiO2 01/20/17 08:00 Nasal Cannula 2.0 01/20/17 04:02 Nasal Cannula 2.0 01/20/17 03:41 36.9 63 19 131/70 97 Nasal Cannula 3.0 Physical Exam: GEN: WNWD, in no acute distress, alert and appropriate, elderly, not ill- appearing HEENT: NC/AT, normal sclerae, distortion of mouth 2/2 prior surgical reconstruction on the right side. CARDIO: reg rate, S1/2 heard without m/g/r LUNGS: CTA bilaterally, no crackles, rales or wheezes, good diaphragmatic excursion ABD: soft, non-tender, non-distended, no rebound or guarding EXTREMITY: no LE swelling or edema, extremities are warm and well-perfused NEURO: CN 2-12 grossly intact, sensation intact throughout MUSC: 5/5 strength throughout, no focal deficits SKIN: warm and dry Laboratory Results: 01/20/17 07:31 01/20/17 07:31 Test 01/17/17 16:10 01/17/17 17:04 01/17/17 17:11 01/17/17 20:25 Urine Color DK YELLOW Urine Appearance CLEAR (CLEAR) Urine pH 5.0 (4.5-7.5) Urine Specific [place] 1.022 (1.000-1.030) Urine Protein NEG (NEG) Urine Glucose (UA) NEG (NEG) Urine Ketones 1+ (NEG) Urine Occult Blood NEG (NEG) Urine Nitrite NEG (NEG) Urine Bilirubin NEG (NEG) Urine Urobilinogen NEG (NEG) Urine Leukocyte Esterase NEG (NEG) Immature Granulocyte % (Auto) 0.1 % White Blood Count 6.73 K/uL (4.8-10.8) Red Blood Count 4.19 M/uL (4.7-6.1) Hemoglobin 12.5 g/dL (14.0-18.0) Hematocrit 40.1 % (42-52) Mean Corpuscular Volume 95.7 fL (80-100) Mean Corpuscular Hemoglobin 29.8 pg (25-34) Mean Corpuscular Hemoglobin Concent 31.2 g/dl (32-36) Platelet Count 209 K/uL (130-400) Mean Platelet Volume 10.7 fL (7.4-10.4) Neutrophils (%) (Auto) 69.2 % Lymphocytes (%) (Auto) 15.9 % Monocytes (%) (Auto) 14.4 % Eosinophils (%) (Auto) 0.1 % Basophils (%) (Auto) 0.3 % Neutrophils # (Auto) 4.65 K/uL (1.4-6.5) Lymphocytes # (Auto) 1.07 K/uL (1.2-3.4) Monocytes # (Auto) 0.97 K/uL (0.11-0.59) Eosinophils # (Auto) 0.01 K/uL (0-0.5) Basophils # (Auto) 0.02 K/uL (0-0.2) Immature Granulocyte # (Auto) 0.01 K/uL (0.00-0.02) Prothrombin Time 11.9 SECONDS (9.0-12.0) Prothromb Time International Ratio 1.1 (0.9-1.1) Activated Partial Thromboplast Time 26.1 SECONDS (21.0-31.0) Partial Thromboplastin Ratio 1.0 Magnesium Level 2.5 mg/dl (1.8-2.4) Total Bilirubin 0.9 mg/dl (0.2-1) Direct Bilirubin 0.3 mg/dl (0-0.2) Aspartate Amino Transf (AST/SGOT) 27 U/L (15-37) Alanine Aminotransferase (ALT/SGPT) 23 U/L (12-78) Alkaline Phosphatase 71 U/L (45-117) Total Creatine Kinase 141 U/L (39-308) Creatine Kinase MB 1.2 ng/ml (0.5-3.6) Creatine Kinase MB Ratio 0.9 (0-3.0) Troponin I 0.021 ng/ml (0-0.045) Total Protein 7.7 gm/dl (6.4-8.2) Albumin 3.3 gm/dl (3.4-5.0) Thyroid Stimulating Hormone (TSH) 1.190 uIu/ml (0.300-4.500) Bedside Lactic Acid Venous 1.70 mmol/L (0.90-1.70) Influenza Type A (RT-PCR) Neg for Influ A (NEG) Influenza Type B (RT-PCR) Neg for Influ B (NEG) Test 01/18/17 07:25 01/19/17 06:55 01/20/17 07:31 01/20/17 11:23 Estimated Average Glucose 163 mg/dl Hemoglobin A1c 7.3 % (4.5-5.6) Nucleated RBC Absolute Count (auto) 0.08 K/uL (0-0) Nucleated Red Blood Cells % 1.3 % Red Blood Count 4.40 M/uL (4.7-6.1) Mean Corpuscular Volume 94.5 fL (80-100) Mean Corpuscular Hemoglobin 30.2 pg (25-34) Mean Corpuscular Hemoglobin Concent 32.0 g/dl (32-36) RDW Standard Deviation 49.1 fL (36.4-46.3) RDW Coefficient of Variation 14.4 % (11.5-14.5) Mean Platelet Volume 11.3 fL (7.4-10.4) Anion Gap 10.0 mmol/L (3-11) Est Creatinine Clear Calc Drug Dose 36.0 ml/min Estimated GFR () 52.0 Estimated GFR (Non- 44.9 BUN/Creatinine Ratio 9.6 (10-20) Calcium Level 8.6 mg/dl (8.5-10.1) Bedside Glucose 126 mg/dl (70-99) Date/Time Source Procedure Growth Status 01/17/17 16:26 Blood Blood Culture - Preliminary NO GROWTH TO DATE. Resulted 01/17/17 16:16 Throat Group A Streptococcus Screen - Final SPECIMEN NEGATIVE FOR GROUP A BETA ST... Complete 01/17/17 16:16 Throat Group A Streptococcus Screen ([facility]) - Final NO BETA STREP. ISOLATED. Complete 01/17/17 16:10 Urine , Clean Catch Urine Culture - Final THREE TYPES OF ORGANISMS PRESENT, ALL... Complete Last 24 Hours Test 01/19/17 12:35 01/19/17 16:18 01/19/17 20:30 01/20/17 07:31 Bedside Glucose 161 mg/dl 100 mg/dl 123 mg/dl White Blood Count 5.46 K/uL Red Blood Count 4.40 M/uL Hemoglobin 13.3 g/dL Hematocrit 41.6 % Mean Corpuscular Volume 94.5 fL Mean Corpuscular Hemoglobin 30.2 pg Mean Corpuscular Hemoglobin Concent 32.0 g/dl RDW Standard Deviation 49.1 fL RDW Coefficient of Variation 14.4 % Platelet Count 204 K/uL Mean Platelet Volume 11.3 fL Sodium Level 134 mmol/L Potassium Level 3.6 mmol/L Chloride Level 91 mmol/L Carbon Dioxide Level 33 mmol/L Anion Gap 10.0 mmol/L Blood Urea Nitrogen 13 mg/dl Creatinine 1.40 mg/dl Est Creatinine Clear Calc Drug Dose 36.0 ml/min Estimated GFR () 52.0 Estimated GFR (Non- 44.9 BUN/Creatinine Ratio 9.6 Random Glucose 101 mg/dl Calcium Level 8.6 mg/dl Assessment & Plan This is an 86 year old male SOB and hypoxia 2/2 CAP Acute Hypoxic Respiratory Failure 2/2 CAP: He was weaned off oxygen yesterday to room air with success, however, is back on today. Will cont supportive care with Ox as needed, titrating to keep sats >92%. Will consider two- step if can' t pull him off completely. In no acute distress and states that breathing and coughing have improved since admission. Pneumonia, likely Aspiration: admits to choking and is elderly with h/o reconstructive surgery and XRT for cancer management several years ago. Speech path made recs for [facility] soft diet with good aspiration precautions. CXR shows a R infrahilar opacity - atelectasis vs. pneumonia. With his presentation of hypoxia, cough, and high risk of aspiration, he is being treated with antibiotics. Stopping Zosyn and Levaquin today and will cont with Augmentin for total 7 days of abx. 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 Sore throat has improved since yesterday. Pt likes the mouthwash. Cont fluconazole. DM2: holding oral agents sliding scale Ha1c = 7.3% CAD s/p CABG and stents continue Plavix, statin, and b-nikita currently no chest pain, clinically stable Systolic CHF significantly reduced LVEF at around 20-25% currently euvolemic will keep home dose of Lasix No DONG-I/ARB/Aldactone as per cardiology notes due to intolerance and hyperkalemia CKD stage 3 currently at baseline avoiding nephrotoxic agents when able HLD continue statin HTN continue b-nikita no DONG-I/ARB/Aldactone Paroxysmal Atrial Fibrillation continue b-nikita and amiodarone Depression continue Celexa Hypothyroidism cont. Synthroid DVT ppx Lovenox FULL, NO MECHANICAL VENTILATION Dispo: to medical floor, lives at home with son. PT recommending rehab. Will discuss with Case Management and engage with family as needed. Roslyn Jorge DO [facility] Hospitalist Current Inpatient Medications: Current Inpatient Medications Medications (Trade) Dose Ordered Sig/Juliet Route Start Time Stop Time Status Last Admin Dose Admin Enoxaparin Sodium (Lovenox Inj) 30 mg Q24H SC 01/17/17 22:00 02/16/17 21:59 01/19/17 20:57 30 MG Acetaminophen (Tylenol Tab) 650 mg Q4H PRN PO 01/17/17 19:30 02/16/17 19:29 Ondansetron HCl (Zofran Inj) 4 mg Q6H PRN IV 01/17/17 19:30 02/16/17 19:29 Albuterol/ Ipratropium (Duoneb) 3 ml Q4R PRN INH 01/17/17 19:30 02/16/17 19:29 Amiodarone HCl (Cordarone Tab) 100 mg DAILY PO 01/18/17 09:00 02/17/17 08:59 01/20/17 07:28 100 MG Carvedilol (Coreg Tab) 3.125 mg BIDM PO 01/18/17 07:30 02/17/17 07:59 01/20/17 07:30 3.125 MG Clopidogrel Bisulfate (plAVix TAB) 75 mg DAILY PO 01/18/17 09:00 02/17/17 08:59 01/20/17 07:29 75 MG Furosemide (Lasix Tab) 20 mg BID PO 01/17/17 21:00 02/16/17 20:59 01/20/17 07:29 20 MG Levothyroxine Sodium (Synthroid Tab) 100 mcg DAILYBB PO 01/18/17 06:00 02/17/17 06:59 01/20/17 06:07 100 MCG Magnesium Oxide (Mag-Ox Tab) 400 mg QAM PO 01/18/17 09:00 02/17/17 08:59 01/20/17 07:29 400 MG Metoclopramide HCl (Reglan Tab) 5 mg AC PO 01/18/17 07:00 02/17/17 07:59 01/20/17 06:07 5 MG Nitroglycerin (Nitrostat Tab) 0.4 mg PRN SL 01/17/17 19:45 02/16/17 19:44 Pilocarpine HCl (Salagen Tab) 5 mg QAM PO 01/18/17 09:00 02/17/17 08:59 01/20/17 07:30 5 MG Rosuvastatin Calcium (Crestor Tab) 5 mg Q2D@0900 PO 01/18/17 09:00 02/17/17 08:59 01/20/17 07:30 5 MG Citalopram Hydrobromide (celeXA TAB) 10 mg DAILY PO 01/18/17 09:00 02/17/17 08:59 01/20/17 07:29 10 MG Insulin Aspart (novoLOG ASPART) SLIDING SCALE If C... ACHS SC 01/17/17 21:00 02/16/17 20:59 01/19/17 12:37 2 UNITS Glucose (Glucose 40% Gel) 15-30 GRAMS 15 GRAMS... UD PRN PO 01/17/17 19:45 02/16/17 19:44 Glucose (Glucose Chew Tab) 4-8 Tablets 4 Tabl... UD PRN PO 01/17/17 19:45 02/16/17 19:44 Dextrose (Dextrose 50% 50ML Syringe) 25-50ML OF 50% DW IV FOR... UD PRN IV 01/17/17 19:45 02/16/17 19:44 Glucagon (Glucagon Inj) 1 mg UD PRN SQ 01/17/17 19:45 02/16/17 19:44 Docusate Sodium 100 mg BID PO 01/17/17 21:00 02/16/17 20:59 01/20/17 07:28 100 MG Lidocaine HCl/ Diphenhydramine HCl/Al Hydroxide/ Mg Hydroxide/ Glycerin/Barcode (VISCOUS LIDOCAINE 2% Soln/ Benadryl Syrup/ Maalox Susp/ Glycerin Anhydrous Soln) QID MT 01/18/17 17:00 02/17/17 16:59 01/20/17 07:30 5 ML Fluconazole (Diflucan Tab) 100 mg QAM PO 01/20/17 09:00 01/30/17 08:59 01/20/17 07:29 100 MG Amoxicillin/ Clavulanate Potassium (Augmentin Tab) 500 mg Q8H PO 01/20/17 11:15 01/27/17 11:14 UNV
[2017-01-21] VITALS: O2SAT 92
[2017-01-21] MEDS: AMOXICILLIN/CLAVULANATE TAB 500 MG TAB PO SCH ×3 (05:11→21:02)
[2017-01-21] MEDS: METOCLOPRAMIDE HCL 5 MG TAB PO SCH ×3 (05:11→16:56)
[2017-01-21] MEDS: LEVOTHYROXINE 100 MCG TAB PO SCH (05:12)
[2017-01-21 07:10] LABS: HEMATOCRIT 41.7 % (42-52); MEAN CELL VOLUME 92.9 fL (80-100); MEAN CORPUSCULAR HEMOGLOBIN 29.8 pg (25-34); MEAN CORPUSCULAR HGB CONC 32.1 g/dl (32-36); MEAN PLATELET VOLUME 10.9 fL (7.4-10.4); PLATELET COUNT 191 K/uL (130-400); RED BLOOD COUNT 4.49 M/uL (4.7-6.1); WHITE BLOOD COUNT 6.52 K/uL (4.8-10.8)
[2017-01-21 07:11] VITALS: BP 98/57; PULSE 69; TEMP 36.9; O2SAT 90
[2017-01-21 07:43] LABS: BUN/CREATININE RATIO 12.9 (10-20); CALCIUM 8.5 mg/dl (8.5-10.1); CREATININE 1.2 mg/dl (0.60-1.40); MAGNESIUM 2.5 mg/dl (1.8-2.4); POTASSIUM 3.8 mmol/L (3.5-5.1)
[2017-01-21] MEDS: CARVEDILOL 3.125 MG TAB PO SCH ×2 (07:50→17:02)
[2017-01-21] MEDS: CITALOPRAM 20 MG TAB PO SCH (07:53)
[2017-01-21] MEDS: CLOPIDOGREL BISULFATE 75 MG TAB PO SCH (07:53)
[2017-01-21] MEDS: DOCUSATE SODIUM 100 MG CAP PO SCH ×2 (07:53→21:02)
[2017-01-21] MEDS: FLUCONAZOLE 100 MG TAB PO SCH (07:54)
[2017-01-21] MEDS: MAGNESIUM OXIDE 400 MG TAB PO SCH (07:54)
[2017-01-21] MEDS: PILOCARPINE HCL 5 MG TAB PO SCH (07:54)
[2017-01-21] MEDS: FUROSEMIDE 20 MG TAB PO SCH ×2 (07:54→21:04)
[2017-01-21] MEDS: AMIODARONE 200 MG TAB PO SCH (07:55)
[2017-01-21] MEDS: INSULIN ASPART 100 UNITS/ML 3 ML PEN SC SCH ×4 (08:02→21:06)
[2017-01-21] MEDS: LIDOCAINE HCL 2% VISCOUS SOLN 60 ML, DiphenhydrAMINE HCL SYRUP 150 MG, ALUMINUM/MAGNESI... MT SCH ×16 (09:00→21:01)
--- NOTE | 2017-01-21 14:46 | Progress Note ---
Medicine Progress Note Date & Time of Visit: January 21, 2017 at 14:41. Subjective This is an 86 year old male SOB and hypoxia 2/2 CAP -still requiring oxygen (only while sleeping per nursing staff) -states that he is feeling well -reports some constipation and is asking for a laxative -feels he did well today in PT -denies chest pain, shortness of breath or other symptoms at this time -tolerates PO ambulates with walker Objective Last 8 Hrs Date Time Temp Pulse Resp B/P Pulse Ox O2 Delivery O2 Flow Rate FiO2 01/21/17 11:11 Nasal Cannula 3.0 01/21/17 07:11 36.9 69 18 98/57 90 Room Air Physical Exam: GEN: WNWD, in no acute distress, alert and appropriate but easily falls asleep, elderly, not ill-appearing HEENT: NC/AT, normal sclerae, distortion of mouth 2/2 prior surgical reconstruction on the right side. CARDIO: reg rate, S1/2 heard without m/g/r LUNGS: CTA bilaterally, no crackles, rales or wheezes, good diaphragmatic excursion ABD: soft, non-tender, non-distended, no rebound or guarding EXTREMITY: no LE swelling or edema, extremities are warm and well-perfused NEURO: CN 2-12 grossly intact, sensation intact throughout MUSC: 5/5 strength throughout, no focal deficits SKIN: warm and dry Laboratory Results: 01/21/17 07:05 01/21/17 07:05 Test 01/17/17 16:10 01/17/17 17:04 01/17/17 17:11 01/17/17 20:25 Urine Color DK YELLOW Urine Appearance CLEAR (CLEAR) Urine pH 5.0 (4.5-7.5) Urine Specific [place] 1.022 (1.000-1.030) Urine Protein NEG (NEG) Urine Glucose (UA) NEG (NEG) Urine Ketones 1+ (NEG) Urine Occult Blood NEG (NEG) Urine Nitrite NEG (NEG) Urine Bilirubin NEG (NEG) Urine Urobilinogen NEG (NEG) Urine Leukocyte Esterase NEG (NEG) Immature Granulocyte % (Auto) 0.1 % White Blood Count 6.73 K/uL (4.8-10.8) Red Blood Count 4.19 M/uL (4.7-6.1) Hemoglobin 12.5 g/dL (14.0-18.0) Hematocrit 40.1 % (42-52) Mean Corpuscular Volume 95.7 fL (80-100) Mean Corpuscular Hemoglobin 29.8 pg (25-34) Mean Corpuscular Hemoglobin Concent 31.2 g/dl (32-36) Platelet Count 209 K/uL (130-400) Mean Platelet Volume 10.7 fL (7.4-10.4) Neutrophils (%) (Auto) 69.2 % Lymphocytes (%) (Auto) 15.9 % Monocytes (%) (Auto) 14.4 % Eosinophils (%) (Auto) 0.1 % Basophils (%) (Auto) 0.3 % Neutrophils # (Auto) 4.65 K/uL (1.4-6.5) Lymphocytes # (Auto) 1.07 K/uL (1.2-3.4) Monocytes # (Auto) 0.97 K/uL (0.11-0.59) Eosinophils # (Auto) 0.01 K/uL (0-0.5) Basophils # (Auto) 0.02 K/uL (0-0.2) Immature Granulocyte # (Auto) 0.01 K/uL (0.00-0.02) Prothrombin Time 11.9 SECONDS (9.0-12.0) Prothromb Time International Ratio 1.1 (0.9-1.1) Activated Partial Thromboplast Time 26.1 SECONDS (21.0-31.0) Partial Thromboplastin Ratio 1.0 Total Bilirubin 0.9 mg/dl (0.2-1) Direct Bilirubin 0.3 mg/dl (0-0.2) Aspartate Amino Transf (AST/SGOT) 27 U/L (15-37) Alanine Aminotransferase (ALT/SGPT) 23 U/L (12-78) Alkaline Phosphatase 71 U/L (45-117) Total Creatine Kinase 141 U/L (39-308) Creatine Kinase MB 1.2 ng/ml (0.5-3.6) Creatine Kinase MB Ratio 0.9 (0-3.0) Troponin I 0.021 ng/ml (0-0.045) Total Protein 7.7 gm/dl (6.4-8.2) Albumin 3.3 gm/dl (3.4-5.0) Thyroid Stimulating Hormone (TSH) 1.190 uIu/ml (0.300-4.500) Bedside Lactic Acid Venous 1.70 mmol/L (0.90-1.70) Influenza Type A (RT-PCR) Neg for Influ A (NEG) Influenza Type B (RT-PCR) Neg for Influ B (NEG) Test 01/18/17 07:25 01/19/17 06:55 01/21/17 07:05 01/21/17 11:48 Estimated Average Glucose 163 mg/dl Hemoglobin A1c 7.3 % (4.5-5.6) Nucleated RBC Absolute Count (auto) 0.08 K/uL (0-0) Nucleated Red Blood Cells % 1.3 % Red Blood Count 4.49 M/uL (4.7-6.1) Mean Corpuscular Volume 92.9 fL (80-100) Mean Corpuscular Hemoglobin 29.8 pg (25-34) Mean Corpuscular Hemoglobin Concent 32.1 g/dl (32-36) RDW Standard Deviation 48.6 fL (36.4-46.3) RDW Coefficient of Variation 14.4 % (11.5-14.5) Mean Platelet Volume 10.9 fL (7.4-10.4) Anion Gap 7.0 mmol/L (3-11) Est Creatinine Clear Calc Drug Dose 41.4 ml/min Estimated GFR () 62.6 Estimated GFR (Non- 54.0 BUN/Creatinine Ratio 12.9 (10-20) Calcium Level 8.5 mg/dl (8.5-10.1) Magnesium Level 2.5 mg/dl (1.8-2.4) Bedside Glucose 126 mg/dl (70-99) Date/Time Source Procedure Growth Status 01/17/17 16:26 Blood Blood Culture - Preliminary NO GROWTH TO DATE. Resulted 01/17/17 16:16 Throat Group A Streptococcus Screen - Final SPECIMEN NEGATIVE FOR GROUP A BETA ST... Complete 01/17/17 16:16 Throat Group A Streptococcus Screen (VICKI) - Final NO BETA STREP. ISOLATED. Complete 01/17/17 16:10 Urine , Clean Catch Urine Culture - Final THREE TYPES OF ORGANISMS PRESENT, ALL... Complete Last 24 Hours Test 01/21/17 07:05 01/21/17 07:23 01/21/17 11:48 White Blood Count 6.52 K/uL Red Blood Count 4.49 M/uL Hemoglobin 13.4 g/dL Hematocrit 41.7 % Mean Corpuscular Volume 92.9 fL Mean Corpuscular Hemoglobin 29.8 pg Mean Corpuscular Hemoglobin Concent 32.1 g/dl RDW Standard Deviation 48.6 fL RDW Coefficient of Variation 14.4 % Platelet Count 191 K/uL Mean Platelet Volume 10.9 fL Sodium Level 131 mmol/L Potassium Level 3.8 mmol/L Chloride Level 90 mmol/L Carbon Dioxide Level 34 mmol/L Anion Gap 7.0 mmol/L Blood Urea Nitrogen 15 mg/dl Creatinine 1.20 mg/dl Est Creatinine Clear Calc Drug Dose 41.4 ml/min Estimated GFR () 62.6 Estimated GFR (Non- 54.0 BUN/Creatinine Ratio 12.9 Random Glucose 105 mg/dl Calcium Level 8.5 mg/dl Magnesium Level 2.5 mg/dl Bedside Glucose 116 mg/dl 126 mg/dl Assessment & Plan This is an 86 year old male SOB and hypoxia 2/2 CAP Acute Hypoxic Respiratory Failure 2/2 CAP: He was weaned off oxygen but is requiring O2 while sleeping. Will cont supportive care with Ox as needed, titrating to keep sats >92%. Will consider two- step if can't pull him off completely. In no acute distress and states that breathing and coughing have improved since admission. Will consult pulm to ensure we aren't missing anything with residual hypoxia worse with sleeping. Did not come in on oxygen Pneumonia, likely Aspiration: admits to choking and is elderly with h/o reconstructive surgery and XRT for cancer management several years ago. Speech path made recs for [facility] soft diet with good aspiration precautions. CXR shows a R infrahilar opacity - atelectasis vs. pneumonia. With his presentation of hypoxia, cough, and high risk of aspiration, he is being treated with antibiotics. Stopping Zosyn and Levaquin today and will cont with Augmentin for total 7 days of abx. Doing well on this. 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 Sore throat has improved since yesterday. Pt likes the mouthwash. Cont fluconazole. DM2: holding oral agents sliding scale Ha1c = 7.3% CAD s/p CABG and stents continue Plavix, statin, and b-nikita currently no chest pain, clinically stable Systolic CHF significantly reduced LVEF at around 20-25% currently euvolemic will keep home dose of Lasix No DONG-I/ARB/Aldactone as per cardiology notes due to intolerance and hyperkalemia CKD stage 3 currently at baseline avoiding nephrotoxic agents when able HLD continue statin HTN continue b-nikita no DONG-I/ARB/Aldactone Paroxysmal Atrial Fibrillation continue b-nikita and amiodarone Depression continue Celexa Hypothyroidism cont. Synthroid DVT ppx Lovenox FULL, NO MECHANICAL VENTILATION Dispo: PT recommending rehab and patient states today that he is OK with this if it is temporary only. Will discuss with Case Management and engage with family as needed. Roslyn Jorge DO [facility] Hospitalist Current Inpatient Medications: Current Inpatient Medications Medications (Trade) Dose Ordered Sig/Juliet Route Start Time Stop Time Status Last Admin Dose Admin Enoxaparin Sodium (Lovenox Inj) 30 mg Q24H SC 01/17/17 22:00 02/16/17 21:59 01/20/17 20:46 30 MG Acetaminophen (Tylenol Tab) 650 mg Q4H PRN PO 01/17/17 19:30 02/16/17 19:29 Ondansetron HCl (Zofran Inj) 4 mg Q6H PRN IV 01/17/17 19:30 02/16/17 19:29 Albuterol/ Ipratropium (Duoneb) 3 ml Q4R PRN INH 01/17/17 19:30 02/16/17 19:29 Amiodarone HCl (Cordarone Tab) 100 mg DAILY PO 01/18/17 09:00 02/17/17 08:59 01/21/17 07:55 100 MG Carvedilol (Coreg Tab) 3.125 mg BIDM PO 01/18/17 07:30 02/17/17 07:59 01/20/17 17:02 3.125 MG Clopidogrel Bisulfate (plAVix TAB) 75 mg DAILY PO 01/18/17 09:00 02/17/17 08:59 01/21/17 07:53 75 MG Furosemide (Lasix Tab) 20 mg BID PO 01/17/17 21:00 02/16/17 20:59 01/21/17 07:54 20 MG Levothyroxine Sodium (Synthroid Tab) 100 mcg DAILYBB PO 01/18/17 06:00 02/17/17 06:59 01/21/17 05:12 100 MCG Magnesium Oxide (Mag-Ox Tab) 400 mg QAM PO 01/18/17 09:00 02/17/17 08:59 01/21/17 07:54 400 MG Metoclopramide HCl (Reglan Tab) 5 mg AC PO 01/18/17 07:00 02/17/17 07:59 01/21/17 11:02 5 MG Nitroglycerin (Nitrostat Tab) 0.4 mg PRN SL 01/17/17 19:45 02/16/17 19:44 [place]oc[place] HCl (Salagen Tab) 5 mg QAM PO 01/18/17 09:00 02/17/17 08:59 01/21/17 07:54 5 MG Rosuvastatin Calcium (Crestor Tab) 5 mg Q2D@0900 PO 01/18/17 09:00 02/17/17 08:59 01/20/17 07:30 5 MG Citalopram Hydrobromide (celeXA TAB) 10 mg DAILY PO 01/18/17 09:00 02/17/17 08:59 01/21/17 07:53 10 MG Insulin Aspart (novoLOG ASPART) SLIDING SCALE If C... ACHS SC 01/17/17 21:00 02/16/17 20:59 01/21/17 12:28 2 UNITS Glucose (Glucose 40% Gel) 15-30 GRAMS 15 GRAMS... UD PRN PO 01/17/17 19:45 02/16/17 19:44 Glucose (Glucose Chew Tab) 4-8 Tablets 4 Tabl... UD PRN PO 01/17/17 19:45 02/16/17 19:44 Dextrose (Dextrose 50% 50ML Syringe) 25-50ML OF 50% DW IV FOR... UD PRN IV 01/17/17 19:45 02/16/17 19:44 Glucagon (Glucagon Inj) 1 mg UD PRN SQ 01/17/17 19:45 02/16/17 19:44 Docusate Sodium 100 mg BID PO 01/17/17 21:00 02/16/17 20:59 01/21/17 07:53 100 MG Lidocaine HCl/ Diphenhydramine HCl/Al Hydroxide/ Mg Hydroxide/ Glycerin/Barcode (VISCOUS LIDOCAINE 2% Soln/ Benadryl Syrup/ Maalox Susp/ Glycerin Anhydrous Soln) QID MT 01/18/17 17:00 02/17/17 16:59 01/21/17 11:02 5 ML Fluconazole (Diflucan Tab) 100 mg QAM PO 01/20/17 09:00 01/30/17 08:59 01/21/17 07:54 100 MG Amoxicillin/ Clavulanate Potassium (Augmentin Tab) 500 mg Q8 PO 01/20/17 14:00 01/27/17 13:59 01/21/17 12:26 500 MG
[2017-01-21 14:52] VITALS: BP 111/67; PULSE 61; TEMP 36.4; O2SAT 91
[2017-01-21 15:00] VITALS: BP 94/57; PULSE 60; TEMP 36.7; O2SAT 91
[2017-01-21] MEDS ORDERED: NURSING VERBAL MED ORDER ONE (16:30)
[2017-01-21] MEDS: BISACODYL 5 MG TABEC PO PRN (16:56)
[2017-01-21 17:00] VITALS: BP 114/64; PULSE 66
[2017-01-21] MEDS: ENOXAPARIN 30 MG/0.3 ML SYR SC SCH (21:03)
[2017-01-21 23:08] VITALS: BP 98/60; PULSE 64; TEMP 36.8; O2SAT 90
[2017-01-22] MEDS: AMOXICILLIN/CLAVULANATE TAB 500 MG TAB PO SCH ×2 (06:23→14:07)
[2017-01-22] MEDS: LEVOTHYROXINE 100 MCG TAB PO SCH (06:23)
[2017-01-22] MEDS: METOCLOPRAMIDE HCL 5 MG TAB PO SCH ×2 (06:23→12:06)
[2017-01-22 07:36] LABS: CALCIUM 8.5 mg/dl (8.5-10.1); CREATININE 1.2 mg/dl (0.60-1.40); POTASSIUM 3.8 mmol/L (3.5-5.1)
--- NOTE | 2017-01-22 07:49 | PULMONARY CONSULTATION ---
DATE OF CONSULTATION: 01/22/2017 NOTICE TO RECEIVING REPUBLICAN/AGENCY This information is strictly Confidential and protected under [place] law. [place] law prohibits you from making any further disclosure of this information unless further disclosure is expressly permitted by the written consent of the person to whom it pertains or is authorized by law. A general authorization for the release of medical or other information is not sufficient for this purpose. Hospital accepts no responsibility if the information is made available to any other person, INCLUDING THE PATIENT. HISTORY OF PRESENT ILLNESS: The patient is a very pleasant 86-year-old male who was admitted to the hospital through the Emergency Room with a cough, generalized weakness and hypoxemia with oxygen saturation of 79% on room air. Chest x-ray revealed a right lower lobe atelectasis versus infiltrate and a probable infiltrative process in the right middle lobe. He was placed on Zosyn and Levaquin and eventually transitioned to Augmentin. He has developed mild hypoxemia with oxygen saturation in the 90-96% range. On 2 liters oxygen sats 97%; on room air it is 96% yesterday. Dr. Jorge has asked me to evaluate the patient from a pulmonary standpoint. Presently, the patient is lying on his right side, comfortable, sleeping with a respiratory rate of 16. He states he feels 100% better than he did at the time of admission. He denies cough, significant sputum production. He states he does have some episodes of occasional choking with eating, but it is minimal. 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 He has not been very active, quite unsteady on his feet and there is a walker in his room. He denies pranav aspiration, chronic cough, TB exposure, fevers, night sweats or weight loss. He has not had any significant industrial exposures in the past except for smoking for about 15 years. According to the Emergency Room report his oxygen saturation actually looked fairly good on 2 liters from 85-93%. Since then it has been in the normal range on supplemental oxygen. Examination at the time of admission revealed some rhonchi, particularly on the right side. The chest x-ray revealed a right hilar infiltrative process. Review of systems is otherwise unremarkable. Travel history and environmental histories have been unremarkable. PAST MEDICAL HISTORY: Positive for atrial fibrillation, BPH, carotid stenosis, stage III chronic kidney disease and coronary artery disease. He has had a history of stroke, depression, cardiac stent placement, systolic congestive heart failure, diabetes, oral cancer. PAST SURGICAL HISTORY: History of an endarterectomy, cervical spine surgery, splenectomy for unknown reasons, appendectomy, gastric surgery for ulcer in the past, mandibular surgery, surgery of the pancreas, bypass surgery and a cholecystectomy. FAMILY HISTORY: Father from what sounds like maybe stomach cancer. Mother from heart disease. SOCIAL HISTORY: He started smoking at age 9, quit at age 24. Smoked about a pack of cigarettes on a daily basis. 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 Has not had any industrial exposures. ALLERGIES: ASPIRIN, SIMVASTATIN, ATORVASTATIN. MEDICATIONS: Noted. He is on amiodarone. PHYSICAL EXAMINATION: VITAL SIGNS: His blood pressures in the 114/64 to 98/60 range. Pulse is 70 and regular, respiratory rate 18 and he is afebrile. HEENT: Reveals right facial droop with no evidence of any thrush noted. There is no neck vein distention or HJR. No adenopathy is noted. HEART: Regular rate and rhythm. No murmurs are heard. LUNGS: Reveal decreased breath sounds bilaterally. No fremitus or crackles are noted now. ABDOMEN: Soft, nontender. He has no cyanosis, clubbing or edema. NECK: I do not detect any adenopathy. Thyroid was nonpalpable. LABORATORY DATA: White count is 6.5, hemoglobin 13.4, hematocrit 41.7% with essentially unremarkable differential on 01/17/2017. His BUN 15, creatinine 1.2, magnesium was slightly increased to 2.5. Throat culture showed no evidence of strep. Blood cultures were negative. Chest x-ray reveals a right infrahilar infiltrate, perhaps some atelectatic changes at the right base. It may have also had a very small pleural effusion. Coagulation profile is unremarkable. Urinalysis was unremarkable except for revealing some ketones. Influenza A and B, PCR are negative. IMPRESSION: 1. Right lower lobe pneumonia. This seems to be appropriately treated certainly with Levaquin and Zosyn and now Augmentin. 2. Hypoxemia. The patient is not very active. This most certainly is related to pneumonia and seems to have improved. His oxygen saturation is 90% on room air. I believe the hypoxemia most likely is related to the pneumonia. There is no evidence of any heart failure at this point. I do not detect any evidence of lung disease related to the radiation to the mouth. He has a history of a right lower lobe pneumonia back in June 2013. Had a CT scan of the chest and at that time showed opacities in the right lung favoring a pneumonia with a small right pleural effusion. RECOMMENDATIONS: 1. I would finish out a full 10-day course of Augmentin. 2. The patient may need be sent home with oxygen. He is not very active so I do not think he would be a candidate for determining a 2 step exercise study. I think if his saturation is above 90% he could be discharged without O2. If it drops below 88% he should be sent home on 1 or 2 liters and that can be readjusted and reassessed again as an outpatient. He should have repeat chest x-ray done in a month to assess the right lower lobe and right infrahilar area to ensure that that has resolved. He could follow up with Dr. Gallegos as an outpatient as well.
[2017-01-22 07:58] VITALS: BP 102/64; PULSE 62; TEMP 36.9; O2SAT 90
[2017-01-22] MEDS: DOCUSATE SODIUM 100 MG CAP PO SCH (09:00)
[2017-01-22] MEDS: CITALOPRAM 20 MG TAB PO SCH (09:00)
[2017-01-22] MEDS: CLOPIDOGREL BISULFATE 75 MG TAB PO SCH (09:00)
[2017-01-22] MEDS: PILOCARPINE HCL 5 MG TAB PO SCH (09:01)
[2017-01-22] MEDS: MAGNESIUM OXIDE 400 MG TAB PO SCH (09:01)
[2017-01-22] MEDS: FLUCONAZOLE 100 MG TAB PO SCH (09:01)
[2017-01-22] MEDS: CARVEDILOL 3.125 MG TAB PO SCH (09:01)
[2017-01-22] MEDS: AMIODARONE 200 MG TAB PO SCH (09:01)
[2017-01-22] MEDS: FUROSEMIDE 20 MG TAB PO SCH (09:02)
[2017-01-22] MEDS: ROSUVASTATIN CALCIUM 10 MG TAB PO SCH (09:02)
[2017-01-22] MEDS: BISACODYL 5 MG TABEC PO PRN (09:14)
[2017-01-22] MEDS: LIDOCAINE HCL 2% VISCOUS SOLN 60 ML, DiphenhydrAMINE HCL SYRUP 150 MG, ALUMINUM/MAGNESI... MT SCH ×8 (09:14→12:07)
[2017-01-22] MEDS: INSULIN ASPART 100 UNITS/ML 3 ML PEN SC SCH ×2 (09:20→12:14)
[2017-01-22 15:49] VITALS: BP 97/56; PULSE 58; TEMP 36.5; O2SAT 90
[2017-01-22] MEDS ORDERED: OXYGEN (15:59)
[2017-01-22] MEDS ORDERED: DFL100 PO (15:59)
[2017-01-22] MEDS ORDERED: AMOX1TAB42 PO (15:59)
--- NOTE | 2017-01-22 16:07 | Discharge Instructions ---
Discharge Instructions Date of Service January 22, 2017. Admission Reason for Admission: Pneumonia, Acute Respiratory Failure Discharge Discharge Diagnosis / Problem: Community-acquired pneumonia Discharge Goals Goal(s): Decrease discomfort, Improve function Activity Recommendations Activity Limitations: per Instructions/Follow-up section . Instructions / Follow-Up Instructions / Follow-Up Please take all medications as instructed. You will need a repeat chest x-ray in one month to ensure resolution of pneumonia. This can be ordered through your regular physician's office. Please follow-up with your primary care physician, Dr. Moreno, within one week of discharge from rehab facility. You have been evaluated by Dr. Valenzuela from [facility]monology, who recommends continuing with oxygen for support for the pneumonia while you need it. Long-term oxygen may not be needed once the pneumonia completely resolves, however, you will need to continue this in the short-term during your stay at rehab. It was a pleasure taking care of you! Call if you have any questions or problems. You can reach a [facility] hospitalist on duty at [facility] 24 hours a day by calling [phone]. Take care of yourself. Roslyn Jorge DO [facility] Hospitalist Current Hospital Diet Patient's current hospital diet: AHA Diet (Heart Healthy) Discharge Diet Recommended Diet: AHA Diet (Heart Healthy) Diet Texture: Mechanical Soft (ground) (straws are ok) Pending Studies Studies pending at discharge: yes List of pending studies: finalized blood cultures Laboratory Results Hemoglobin A1c Test 01/18/17 07:25 Range/Units Estimated Average Glucose 163 mg/dl Hemoglobin A1c 7.3 H 4.5-5.6 % Medical Emergencies . Who to Call and When: Medical Emergencies: If at any time you feel your situation is an emergency, please call 911 immediately. . Non-Emergent Contact Non-Emergency issues call your: Primary Care Provider . . "Provider Documentation" section prepared by Roslyn Jorge. . VTE Core Measure Inpt VTE Proph given/why not?: Enoxaparin (Lovenox)SQ
--- NOTE | 2017-01-22 16:10 | Discharge Summary ---
Discharge Summary Date of Service January 22, 2017. Discharge Summary Admission Date: Jan 17, 2017 at 19:27 Discharge Date: January 22, 2017 Discharge Disposition: Rehab Principal Diagnosis: Acute Hypoxic Respiratory Failure 2/2 CAP Pneumonia, likely 2/2 Aspiration Oropharyngeal Candidiasis DM2 CAD s/p CABG and stents Systolic CHF, chronic, compensated CKD stage 3 HLD HTN Paroxysmal Atrial Fibrillation Depression Hypothyroidism Procedures: None. Vaccinations: None. Consultations: Pulmonary-Dr. Gerson Valenzuela Pending Studies/Follow-Up: see instructions below Medication Reconciliation New Medications: Home O2 Therapy (Oxygen) Gas 1 LITER NA DAILY PRN for shortness of breath, #2 Amoxicillin & Pot Clavulanate (Amoxicillin/Clavulanate P) 1 Tab Tab 500 MG PO Q8 for 6 Days, #18 TAB Cont for six more days, last day should be 01/28. Fluconazole (Fluconazole) 100 Mg Tab 100 MG PO QAM for 4 Days, #4 TAB Cont for 4 more days, last day should be 01/26 Continued Medications: Amiodarone Hcl (Cordarone) 200 Mg Tab 100 MG PO DAILY, TAB Take 1/2 pill (100 mg) daily. Carvedilol (Coreg) 3.125 Mg Tab 3.125 MG PO BIDM, TAB Citalopram Hydrobromide (Citalopram Hydrobromide) 10 Mg Tab 10 MG PO DAILY Clopidogrel (Plavix) 75 Mg Tab 75 MG PO DAILY, 0 Refills Furosemide (Lasix) 40 Mg Tab 20 MG PO BID 1/2 TAB TWICE A DAY Levothyroxine Sodium (Synthroid) 100 Mcg Tab 100 MCG PO QAM, TAB Magnesium Oxide (Mag-Ox) 400 Mg Tab 400 MG PO QAM Metformin Hcl (Glucophage) 500 Mg Tab 500 MG PO BID, TAB Metoclopramide Hcl (Metoclopramide Hcl) 5 Mg Tab 5 MG PO AC Nitroglycerin (Nitrostat) 0.4 Mg Tab 0.4 MG SL PRN Pilocarpine (Salagen) 5 Mg Tab 5 MG PO QAM, TAB Rosuvastatin Calcium (Crestor) 5 Mg Tab 5 MG PO Q2D, TAB TAKES MON, WED, FRI, PER PT. Admission Information HPI (per Admitting provider): Patient seen and examined. 86 year old male with complex PMHx including, PAF, CAD s/p CABG, stent, systolic CHF, h/o CVA, CKD stage 3, DM2, h/o oral CA and other problems listed below presents to the ED complaining of sore throat, cough x 4 days. Patient reports his throat feels very sore. He reports associated cough that is wet but nonproductive. He states he hasn't been feeling well and feels generally weak so he came to the ED for further evaluation. He has a history of oral CA s/p surgery and he states he chokes almost every time he eats. He denies fevers, chills, rhinorrhea, chest pain, SOB , nausea, vomiting, diarrhea, dysuria, calf pain and edema. He does not use oxygen at home. He denies sick contacts. In the ED patient is hypoxic otherwise VS are stable. CXR shows infiltrate. There is no leukocytosis, PRP is unremarkable. He received supplemental oxygen and levaquin. He feels much better and is resting comfortably. He will be admitted for further workup and treatment. Physical Exam (per Admitting): General Appearance: + pertinent finding (Very pleasant WD/WN 86 year old male lying in bed in NAD with son at bedside ) Head: normocephalic, atraumatic Eyes: PERRL, EOMI, sclerae normal ENT: hearing grossly normal, + pharyngeal erythema, + pertinent finding ( evidence of oral surgery right side) Neck: supple, no JVD Respiratory/Chest: chest non-tender, no respiratory distress, no accessory muscle use, + crackles (rights sided crackles, trace left basilar crackles ) Cardiovascular: regular rate, rhythm, no edema, no gallop, no JVD, no murmur , normal peripheral pulses Abdomen/GI: normal bowel sounds, non tender, soft Back: normal inspection, no muscle spasm Extremities/Musculoskelatal: no calf tenderness, normal capillary refill, no pedal edema Neurologic/Psych: alert, oriented x 3, + pertinent finding (no focal deficits noted on gross exam ) Skin: normal color, warm/dry, no rash Hospital Course This is an 86 year old male SOB and hypoxia 2/2 CAP Acute Hypoxic Respiratory Failure 2/2 CAP: He was weaned off oxygen but is requiring O2 while sleeping. Will cont supportive care with Ox as needed, titrating to keep sats >92%. Will consider two- step if can't pull him off completely. In no acute distress and states that breathing and coughing have improved since admission. Will consult pulm to ensure we aren't missing anything with residual hypoxia worse with sleeping. Did not come in on oxygen Pneumonia, likely Aspiration: admits to choking and is elderly with h/o reconstructive surgery and XRT for cancer management several years ago. Speech path made recs for [facility] soft diet with good aspiration precautions. CXR shows a R infrahilar opacity - atelectasis vs. pneumonia. With his presentation of hypoxia, cough, and high risk of aspiration, he is being treated with antibiotics. Stopping Zosyn and Levaquin today and will cont with Augmentin for total 7 days of abx. Doing well on this. 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 Sore throat has improved since yesterday. Pt likes the mouthwash. Cont fluconazole. DM2: holding oral agents sliding scale Ha1c = 7.3% CAD s/p CABG and stents continue Plavix, statin, and b-nikita currently no chest pain, clinically stable Systolic CHF significantly reduced LVEF at around 20-25% currently euvolemic will keep home dose of Lasix No DONG-I/ARB/Aldactone as per cardiology notes due to intolerance and hyperkalemia CKD stage 3 currently at baseline avoiding nephrotoxic agents when able HLD continue statin HTN continue b-nikita no DONG-I/ARB/Aldactone Paroxysmal Atrial Fibrillation continue b-nikita and amiodarone Depression continue Celexa Hypothyroidism cont. Synthroid On day of discharge he was breathing well, although was still requiring 2L via NC which was new for him. Per pulm, this was related to the pneumonia and will be continued at the rehab facility. A follow-up CXR was recommended in one month to ensure complete resolution of the pneumonia. He was ambulating at baseline and was afebrile and hemodynamically stable. He was discharged to rehab in stable condition with close follow-up with PCP recommended. I did speak with the patient's son, Kareem, regarding family's concerns with rehab facilities in the area and poor experiences in the past. I explained that where I understood this, he was not strong enough to go home with the current situation. We agreed to transfer him to rehab and all Kareem's questions were answered to his satisfaction. Total time spent on discharge = 60 minutes This includes examination of the patient, discharge planning, medication reconciliation, and communication with other providers. Discharge Instructions Discharge Instructions Date of Service January 22, 2017. Admission Reason for Admission: Pneumonia, Acute Respiratory Failure Discharge Discharge Diagnosis / Problem: Community-acquired pneumonia Discharge Goals Goal(s): Decrease discomfort, Improve function Activity Recommendations Activity Limitations: per Instructions/Follow-up section . Instructions / Follow-Up Instructions / Follow-Up Please take all medications as instructed. You will need a repeat chest x-ray in one month to ensure resolution of pneumonia. This can be ordered through your regular physician's office. Please follow-up with your primary care physician, Dr. Moreno, within one week of discharge from rehab facility. You have been evaluated by Dr. Valenzuela from [facility], who recommends continuing with oxygen for support for the pneumonia while you need it. Long-term oxygen may not be needed once the pneumonia completely resolves, however, you will need to continue this in the short-term during your stay at rehab. It was a pleasure taking care of you! Call if you have any questions or problems. You can reach a [facility] hospitalist on duty at [facility] 24 hours a day by calling [phone]. Take care of yourself. Roslyn Jorge, DO [facility] Center[facility] Additional Copies To Erich Moreno M.D.
--- NOTE | 2017-01-22 16:19 | Progress Note ---
Progress Note Date of Service January 22, 2017. Progress Note 1200-I spoke with son Kareem regarding my recommendation for temporary rehab. All questions were answered to his satisfaction. 1600: I contacted Daughter, Sara, by phone but left vmail as no one answered.
[2017-01-22 16:25] VITALS: BP 97/56; PULSE 58; TEMP 36.5; O2SAT 90
== END 2017-01-22 16:52 | DRG 177 ==
LOC: ENRESERVDT → ENRESERVTM → C.EDB 15:15 → C.2T 19:27 → C.MS2W 01-20 11:16
PROVIDERS: ADMIT Internal Medicine; ATTEND Hospitalist
DX: J69.0 Pneumonitis due to inhalation of food and vomit (principal); J96.01 Acute respiratory failure with hypoxia; I13.0 Hypertensive heart and chronic kidney disease with heart failure and stage 1 through stage 4 chronic kidney disease, or unspecified chronic kidney disease; I50.22 Chronic systolic (congestive) heart failure; B37.89 Other sites of candidiasis; I69.359 Hemiplegia and hemiparesis following cerebral infarction affecting unspecified side; I48.0 Paroxysmal atrial fibrillation; E11.22 Type 2 diabetes mellitus with diabetic chronic kidney disease; N18.3 Chronic kidney disease, stage 3 (moderate); N40.0 Benign prostatic hyperplasia without lower urinary tract symptoms; E03.9 Hypothyroidism, unspecified; I65.29 Occlusion and stenosis of unspecified carotid artery; E78.5 Hyperlipidemia, unspecified; F32.9 Major depressive disorder, single episode, unspecified; K59.00 Constipation, unspecified; Z79.84 Long term (current) use of oral hypoglycemic drugs; Z79.899 Other long term (current) drug therapy; Z79.02 Long term (current) use of antithrombotics/antiplatelets; Z88.8 Allergy status to other drugs, medicaments and biological substances; Z88.6 Allergy status to analgesic agent; Z95.5 Presence of coronary angioplasty implant and graft; Z98.1 Arthrodesis status; Z90.49 Acquired absence of other specified parts of digestive tract; Z85.819 Personal history of malignant neoplasm of unspecified site of lip, oral cavity, and pharynx; Z80.9 Family history of malignant neoplasm, unspecified; Z82.49 Family history of ischemic heart disease and other diseases of the circulatory system; Z90.81 Acquired absence of spleen

== ENCOUNTER → 2017-01-28 | Outpatient (CLI) | payer OTHER ==
[~2017-01-28] MED LIST changes: +AMOX1TAB42 PO; +CARV3.122 PO; +DFL100 PO; -FAMO20TA9 PO; +LEVO100T PO; -LEVO75TA PO; -OXGN; +OXYGEN; +PILO5TAB10 PO; -POLY335025 PO; -POTA20TA13 PO
--- NOTE | 2017-01-28 14:32 | DIAGNOSTIC IMAGING REPORT ---
VIDEO SWALLOW HISTORY: Dysphagia DYSPHAGIA, ASPIRATION TECHNIQUE: Video fluoroscopic evaluation of swallowing was performed in the AP and lateral projections by the speech pathology staff. The patient is fed nectar-thick and thin liquid barium, a barium coated wafer, and barium pudding. FLUOROSCOPY TIME: 1.9 minutes. COMPARISON STUDY: None. FINDINGS: Moderate aspiration. Persistent vallecular pooling. No significant cough reflex. Aspiration somewhat diminished with thicker liquids. No significant penetration or aspiration identified. Swallowing function is within normal limits. IMPRESSION: 1. Aspiration is confirmed, primarily with thin liquids. No significant cough reflex 2. Please see the speech pathologist report for detailed findings and recommendations. Electronically signed by: Marquis Trevino M.D. 01/28/2017 2:31 PM Dictated Date/Time: 01/28/2017 2:22 PM
--- NOTE | 2017-01-28 16:57 | SWALLOWING EVALUATION ---
REFERRING SPEECH PATHOLOGIST: Mally Bay MS, [facility]-BOARD[facility] ROOM [facility]/L HISTORY: This 86 year-old male, currently an inpatient at [facility] ([facility]), was referred for a VFSS at [facility] in order to determine safety of swallowing thin liquids via straw presentation. The patient has a complex PMH significant for HNCA, heart disease s/p stent, A-fib, CABG, carotid stenosis, DM II, CKD III, CVA, hypothyroidism, CHF and LVEF=15-20%. He was recently admitted to [facility] from 01/17-01/22/17 with acute respiratory failure and pneumonia. A bedside swallowing assessment completed prior to patient's discharge resulted with recommendations for a mechanical soft diet and thin liquids. Currently the patient's diet level is pureed with nectar-thick liquids. The thickened liquids were initiated at [facility]. The patient's goal is to remain on pureed diet, but to be able to drink thin liquids from a straw held on the (L) side of his mouth. The patient's HNCA was diagnosed and treated from late 2012-January 2014. 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 After neck dissection at levels 1-3 and partial glossectomy, the cancer was staged at [id number]. Pt completed chemo/XRT. Recurrence was detected in 2013 and a second round of XRT was completed in January 2014. The patient is also known to have a chronic post-operative fistula. PROCEDURE: The patient was seen in the Radiology Department of [facility] for the VFSS. Cursory examination of the oral cavity revealed him to be edentulous. Movement of the articulators was impaired as evidenced by the patient's dysarthria and occasional loss of secretions from the labial juncture. The patient was seated upright in a wheelchair and was viewed in the lateral plane only. Vocal intensity was judged to be low and quality was raspy, but no AP view was completed d/t positioning issues with the high-back w/c. In the lateral plane, the patient was given the following boluses: sequential swallows of thin liquid barium self-presented from a straw (pt put himself in a chin down position while drinking), single swallow thin liquid barium self-presented from a straw, 1 tsp. barium pudding and sequential swallows of thin liquid barium self-presented from a straw again as liquid wash. RESULTS: Oral Stage: Thin liquid bolus escape from (R) lateral juncture. Bolus hold and mastication not tested. There was delayed initiation of lingual movement for bolus transfer, but once initiated the bolus moved posteriorly as a cohesive unit. Residue collections on tongue after the swallow. These were cleared with a second swallow. Latent pharyngeal swallow initiation when the bolus head was in the pyriform sinuses. There was moderate-severe oral stage dysphagia d/t structural changes from partial glossectomy and CA interventions. Pharyngeal swallow initiation was delayed. Pharyngeal Stage: No bolus between the soft palate and pharyngeal wall. Laryngeal elevation, anterior hyoid excursion and laryngeal vestibular closure were incomplete. The epiglottis fully inverted. Partial distention and duration of PES opening and no visible posterior tongue base movement. Majority of pudding bolus remained in valleculae after the swallow. Liquid wash did help minimize the retention. The patient demonstrated intermittent small amounts of silent aspiration with both thin liquid and pudding boluses. The pudding was aspirated as it spilled from the valleculae after the swallow. When the patient put himself in a chin tuck position, there was less aspiration during the swallow; however he still had scant aspiration of vallecular pooling after the swallow. SUMMARY/RECOMMENDATIONS: This patient presents with moderate-severe oral-pharyngeal dysphagia with small amounts of silent aspiration with multiple consistencies. The following is recommended in keeping with the patient's stated goals for his health care: 1. Pureed diet with thin liquids with permissive aspiration 2. Stringent oral hygiene regimen: thoroughly clean all surfaces of mouth PRIOR TO any oral intake in the morning, after meals, and prior to going to bed for the night 3. Any continuation of BOARDING ROOM FIXER intervention to be determined by treating BOARDING ROOM FIXER and patient. A summary of the results and recommendations was recorded on a Consultation Record and returned with the patient immediately following the study. In addition, all results and recommendations were discussed fully with the patient and his daughter. Their stated goals for the patient are that he be happy and comfortable and do what he wants to do. They understood that there was aspiration during the study and they understand the risks associated with aspiration. They are choosing continued eating by mouth with aspiration risks. Thank you for referral of this patient. Please contact me at if any additional information is needed.
== END | disposition home or self-care (01) ==
LOC: C.RAD 12:59
PROVIDERS: ATTEND Internal Medicine Critical Care Medicine
DX: R13.10 Dysphagia, unspecified (principal); T17.908A Unspecified foreign body in respiratory tract, part unspecified causing other injury, initial encounter; X58.XXXA Exposure to other specified factors, initial encounter

== ENCOUNTER 2017-11-02 18:04 | Emergency (ER) | payer OTHER ==
[~2017-11-02] VITALS: Ht 172.7 cm; Wt 54.5 kg
[~2017-11-02 18:04] MED LIST changes: -NTRGSL/4 SL
[2017-11-02 18:07] VITALS: TEMP 36.7; Ht 172.7 cm; Wt 54.5 kg
[2017-11-02] MEDS ORDERED: SODIUM CHLORIDE 0.9% 250ML 250 ML IV STA (18:15)
--- NOTE | 2017-11-02 18:25 | EMERGENCY ROOM VISIT NOTE ---
History Report prepared by Bertram: Sravan Mcghee Under the Supervision of: Dr. Josef Garcia M.D. First contact with patient: 18:13 Chief Complaint: CONSTIPATION Stated Complaint: CONSTIPATION History of Present Illness The patient is an 87 year old male who presents to the Emergency Room with complaints of constant constipation beginning four days ago. The patient states he has not had a bowel movement in four days. The patient notes he has taken 10 doses of Colace today, and he drank Clear-lax. He reports he called his PCP and was told to come here for a possible bowel obstruction. The patient notes he has a history of twisted bowels and constipation. He reports he takes Colace daily to make sure he has a bowel movement. 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 The patient reports he takes Lasix for his history of CHF. He denies abdominal pain , nausea, vomiting, fevers, chills, cough, and congestion. The patient also denies a history of a bowel obstruction, recent cardiac problems, and having an AICD. Source of History: patient Onset: four days ago Position: other (global) Quality: other (constipation) Timing: constant Associated Symptoms: No fevers, No chills, No cough, No nausea, No vomiting , No abdominal pain Note: Denies: congestion Review of Systems See HPI for pertinent positives and negatives. A total of ten systems were reviewed and were otherwise negative. 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 (16) Skin lesion (17) Status post left heart catheterization (LHC) (18) Stroke (19) Systolic congestive heart failure Surgical Problems: (1) H/O endarterectomy (2) H/O neck surgery (3) H/O oral surgery (4) H/O splenectomy (5) History of appendectomy (6) History of gastric surgery (7) History of mandibular surgery (8) History of pancreatic surgery (9) Hx of CABG (10) S/P cholecystectomy Family History FH: cancer FH: heart disease Social History Smoking Status: Former Smoker Marital Status: Occupation Status: retired Current/Historical Medications Scheduled Amiodarone Hcl (Cordarone), 100 MG PO QAM Citalopram Hydrobromide (Citalopram Hydrobromide), 10 MG PO QAM Clopidogrel (Plavix), 75 MG PO QAM Docusate Sodium (Docusate Sodium), 100 MG PO BID Furosemide (Lasix), 20 MG PO 3XWK Levothyroxine Sodium (Synthroid), 100 MCG PO QAM Magnesium Oxide (Mag-Ox), 400 MG PO HS Metformin Hcl (Glucophage), 500 MG PO BIDM Metoclopramide Hcl (Metoclopramide Hcl), 5 MG PO AC Metoprolol Succinate (Toprol Xl), 12.5 MG PO QAM Polyethylene Glycol 3350 (Polyethylene Glycol 3350), 17 GM PO QAM Rosuvastatin Calcium (Crestor), 5 MG PO 3XWK Scheduled PRN Acetaminophen (Tylenol), 500 MG PO Q4H PRN for Pain or Fever Meloxicam (Mobic), 15 MG PO DAILY PRN for Pain Nitroglycerin (Nitrostat), 0.4 MG SL UD PRN for Chest Pain Allergies Coded Allergies: Aspirin (Verified Adverse Reaction, Severe, INCREASED BLEEDING, 11/02/17) Atorvastatin (Verified Adverse Reaction, Unknown, JOINT PAIN, 11/02/17) Simvastatin (Verified Adverse Reaction, Unknown, JOINT PAIN, 11/02/17) Physical Exam Vital Signs Date Time Temp Pulse Resp B/P (MAP) Pulse Ox O2 Delivery O2 Flow Rate FiO2 11/02/17 22:52 70 19 129/87 98 Room Air 11/02/17 21:41 73 18 136/94 98 Room Air 11/02/17 19:56 62 22 144/72 97 Room Air 11/02/17 19:15 54 11/02/17 18:07 36.7 55 20 126/71 95 Room Air Physical Exam GENERAL: Awake, alert, well-appearing, in no distress HENT: Normocephalic, atraumatic. Oropharynx unremarkable. EYES: Normal conjunctiva. Sclera non-icteric. NECK: Supple. No nuchal rigidity. FROM. No JVD. RESPIRATORY: Clear to auscultation. CARDIAC: Regular rate, normal rhythm. Extremities warm and well perfused. Pulses equal. ABDOMEN: Soft, non-distended. No tenderness to palpation. No rebound or guarding. Remote abdominal surgical scars. Soft, periumbilical hernia appreciated. RECTAL: Deferred. MUSCULOSKELETAL: Chest examination reveals no tenderness. The back is symmetrical on inspection without obvious abnormality. There is no CVA tenderness to palpation. No joint edema. LOWER EXTREMITIES: Calves are equal size bilaterally and non-tender. No edema. No discoloration. NEURO: Normal sensorium. No sensory or motor deficits noted. SKIN: No rash or jaundice noted. Medical Decision & Procedures ER Provider Diagnostic Interpretation: Radiology results as stated below per my review and radiologist interpretation ABD/PELVIS IV CONTRAST ONLY CLINICAL HISTORY: 87 years-old Male presenting with abd pain, constipation r/o obstruction. TECHNIQUE: Multidetector CT of the abdomen and pelvis was performed after the administration of intravenous contrast. IV contrast: 93 mL of Optiray 320. A dose lowering technique was used consistent with the principles of ALARA (as low as reasonably achievable). COMPARISON: 07/12/2013 performed at an outside hospital. CT DOSE (mGy.cm): The estimated cumulative dose is 281.64 mGy.cm. FINDINGS: [employer] topogram: Cholecystectomy clips. Median sternotomy wires. Cardiomegaly. Lung bases: Architectural distortion with swirling pattern and peripheral subpleural consolidation in the right lower lobe consistent with rounded atelectasis. Associated pleural thickening and trace pleural fluid on the right. Nodular opacity in the right middle lobe (series 3 image 26). Peripheral subpleural dependent opacity in the left lower lobe. Marked multichamber enlargement of the heart. Aortic valve and coronary artery calcification. Additionally, calcification at the left ventricular apex with chronic mural thrombus, unchanged since 2013. This likely indicates prior myocardial infarction in this region. Liver: Normal morphology. Mild periportal edema suggested. No focal lesion. Patent portal veins. Hepatic veins not yet opacified. Biliary: Mild biliary ductal prominence likely a reservoir effect in the post cholecystectomy state. Gallbladder surgically absent. Pancreas: Severe parenchymal atrophy. Spleen: Distorted appearance may suggest splenosis. Adrenal glands: Nonspecific nodular thickening of the left adrenal gland. Right adrenal gland normal. Kidneys and ureters: Well-defined hypodensities in the kidneys likely simple cysts. No nephrolithiasis. No hydronephrosis. Normal ureters. Bladder: Normal. Pelvic organs: Prostate enlargement likely secondary to benign prostatic hyperplasia. Bowel: Few scattered colonic diverticula. Moderate stool burden in the distended transverse colon. The appendix is normal. Gastrojejunostomy evident with wall thickening of the jejunum. Postsurgical changes of distal gastrectomy. Focus of air at the blind ending duodenal bulb. Short segment enteroenteric intussusception in the left abdomen (series 3 image 142). This does not appear to result in an obstruction. Peritoneal cavity: No free fluid or intraperitoneal gas. Lymph nodes: No enlarged lymph nodes in the abdomen or pelvis. Vasculature: Atherosclerosis of the normal caliber abdominal aorta. IVC patent. The splenic vein is absence likely indicating prior splenectomy and current splenosis. Abdominal wall: A focal collection is noted along the right anterior abdominal wall measuring 2.6 cm in diameter, present on prior exam, with a fat fluid level likely indicating fat necrosis. Small amount of fluid at the internal origin of the left inguinal canal, also present on prior exam, possibly chronic encysted hydrocele. Musculoskeletal: Degenerative changes of the spine. Osteopenia. IMPRESSION: 1. Large stool burden in the transverse colon, which is distended. This is consistent with constipation. 2. 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 Correlate with the patient's surgical history. No bowel obstruction. Short segment enteroenteric intussusception is likely chronic and of doubtful clinical significance. This is likely at the site of an end-to-side small bowel anastomosis. 3. Additional chronic changes in the abdomen and pelvis as on prior exam. 4. Right lower lobe rounded atelectasis. 5. Nodular opacity in the right middle lobe. This should be followed to resolution. An infectious/inflammatory etiology or chronic scarring is possible. 6. Likely extensive atelectasis or scarring in the left lower lobe. 7. Cardiomegaly. Electronically signed by: Josue Biswas M.D. 11/02/2017 8:42 PM Dictated Date/Time: 11/02/2017 8:29 PM Laboratory Results 11/02/17 18:35 Red Blood Count 3.95, Mean Corpuscular Volume 97.5, Mean Corpuscular Hemoglobin 31.6, Mean Corpuscular Hemoglobin Concent 32.5, Mean Platelet Volume 11.3, Neutrophils (%) (Auto) 64.2, Lymphocytes (%) (Auto) 24.4, Monocytes (%) (Auto) 7.9, Eosinophils (%) (Auto) 2.7, Basophils (%) (Auto) 0.6, Neutrophils # (Auto) 5.74, Lymphocytes # (Auto) 2.18, Monocytes # (Auto) 0.71, Eosinophils # (Auto) 0.24, Basophils # (Auto) 0.05 11/02/17 18:35 Test 11/02/17 18:35 11/02/17 19:25 White Blood Count 8.94 K/uL (4.8-10.8) Red Blood Count 3.95 M/uL (4.7-6.1) Hemoglobin 12.5 g/dL (14.0-18.0) Hematocrit 38.5 % (42-52) Mean Corpuscular Volume 97.5 fL (80-100) Mean Corpuscular Hemoglobin 31.6 pg (25-34) Mean Corpuscular Hemoglobin Concent 32.5 g/dl (32-36) Platelet Count 272 K/uL (130-400) Mean Platelet Volume 11.3 fL (7.4-10.4) Neutrophils (%) (Auto) 64.2 % Lymphocytes (%) (Auto) 24.4 % Monocytes (%) (Auto) 7.9 % Eosinophils (%) (Auto) 2.7 % Basophils (%) (Auto) 0.6 % Neutrophils # (Auto) 5.74 K/uL (1.4-6.5) Lymphocytes # (Auto) 2.18 K/uL (1.2-3.4) Monocytes # (Auto) 0.71 K/uL (0.11-0.59) Eosinophils # (Auto) 0.24 K/uL (0-0.5) Basophils # (Auto) 0.05 K/uL (0-0.2) RDW Standard Deviation 52.7 fL (36.4-46.3) RDW Coefficient of Variation 14.6 % (11.5-14.5) Immature Granulocyte % (Auto) 0.2 % Immature Granulocyte # (Auto) 0.02 K/uL (0.00-0.02) Anion Gap 7.0 mmol/L (3-11) Est Creatinine Clear Calc Drug Dose 39.4 ml/min Estimated GFR () 77.5 Estimated GFR (Non- 66.9 BUN/Creatinine Ratio 21.5 (10-20) Lactic Acid Level 1.7 mmol/L (0.4-2.0) Calcium Level 8.8 mg/dl (8.5-10.1) Total Bilirubin 0.4 mg/dl (0.2-1) Direct Bilirubin 0.1 mg/dl (0-0.2) Aspartate Amino Transf (AST/SGOT) 11 U/L (15-37) Alanine Aminotransferase (ALT/SGPT) 17 U/L (12-78) Alkaline Phosphatase 87 U/L (45-117) Total Protein 8.0 gm/dl (6.4-8.2) Albumin 3.5 gm/dl (3.4-5.0) Lipase 71 U/L (73-393) Urine Color YELLOW Urine Appearance CLEAR (CLEAR) Urine pH 8.0 (4.5-7.5) Urine Specific [place] 1.011 (1.000-1.030) Urine Protein NEG (NEG) Urine Glucose (UA) NEG (NEG) Urine Ketones NEG (NEG) Urine Occult Blood NEG (NEG) Urine Nitrite NEG (NEG) Urine Bilirubin NEG (NEG) Urine Urobilinogen NEG (NEG) Urine Leukocyte Esterase NEG (NEG) Laboratory results reviewed by me Medications Administered Medications (Trade) Dose Ordered Sig/Juliet Route Start Time Stop Time Status Last Admin Dose Admin Sodium Chloride 250 ml @ 125 mls/hr Q2H STAT IV 11/02/17 18:15 11/02/17 20:14 DC 11/02/17 18:15 125 MLS/HR Miscellaneous (Soap Suds Enema) 1 ea NOW STAT ID 11/02/17 21:22 11/02/17 21:24 DC 11/02/17 21:22 1 EA Metoclopramide HCl (Reglan Inj) 10 mg NOW STAT IV 11/02/17 21:22 11/02/17 21:24 DC 11/02/17 21:40 10 MG ED Course 1813: The patient was evaluated in room A12B. A complete history and physical exam was performed. 1814: Ordered Sodium Chloride 250 ml @ 125 mls/hr IV 2121: Ordered Metoclopramide HCl 10mg IV, Soap Suds Enema 1ea ID [id number]: I reevaluated the patient. He had a large bowel movement and feels much better. Discussed results and discharge instructions: he verbalized understanding and agreement. The patient is ready for discharge. Medical Decision I reviewed the patient's past medical history, medications, and the nursing notes as described above. Differential diagnosis: Etiologies such as appendicitis, diverticulitis, PUD, biliary pathology, UTI, pancreatitis, obstruction, mesenteric ischemia, aortic pathology, infections, inflammatory bowel disease, renal colic, as well as others were entertained. The patient is an 87-year-old gentleman with a past medical history of an intra- abdominal tumor status post resection remotely, CHF, CAD who presents to emergency Department with 4 days of constipation and was referred to ED by his PCP concern for obstruction per hpi. Patient denies any abdominal pain, nausea vomiting, fevers or chills. On arrival the patient is well-appearing, no acute distress, afebrile stable vital signs. He has remote abdominal surgical scars and a soft a soft zachary-umbilical hernia but otherwise is soft nontender/ nondistended. Labs unremarkable including WBC and lactate within normal limits. CT scan demonstrates large stool burden. "Short segment enteroenteric intussusception is likely chronic..", which given reassuring labs likely chronic and not significant. The patient was given an enema and Reglan with subsequent large bowel movement and improvement in his symptoms. Findings and plan for follow-up reviewed with patient. Patient agreeable and d/c'd per discharge instructions. Medication Reconcilliation Current Medication List: was personally reviewed by me Blood Pressure Screening Patient's blood pressure: Normal blood pressure Blood pressure disposition: Did not require urgent referral Impression Primary Impression: Constipation Scribe Attestation The scribe's documentation has been prepared under my direction and personally reviewed by me in its entirety. I confirm that the note above accurately reflects all work, treatment, procedures, and medical decision making performed by me. Departure Information Dispostion Home / Self-Care Referrals No Doctor, Assigned (PCP) Forms HOME CARE DOCUMENTATION FORM, IMPORTANT VISIT INFORMATION Patient Instructions ED Constipation, My [facility] Additional Instructions Please follow up with your primary care physician in the next 1-3 days for re- evaluation. You were found to have constipation. Otherwise, your exam, lab results, and CT scan did not show signs of an emergent condition at this time. Continue your Colace for stool softening as needed. Over the counter enema to constipation that does not respond to Colace. Drink plenty of fluids to ensure hydration. Return to the emergency department for worsening symptoms as described in the accompanying instructions.
[2017-11-02] MEDS ORDERED: OPTIRAY 320 IV PRN (18:30)
[2017-11-02 19:04] LABS: BASO % 0.6 %; BASO ABS # 0.05 K/uL (0-0.2); EOS % 2.7 %; EOS ABS # 0.24 K/uL (0-0.5); HEMATOCRIT 38.5 % (42-52); HEMOGLOBIN 12.5 g/dL (14.0-18.0); IG# 0.02 K/uL (0.00-0.02); LYMPH % 24.4 %; LYMPH ABS # 2.18 K/uL (1.2-3.4); MEAN CELL VOLUME 97.5 fL (80-100); MEAN CORPUSCULAR HEMOGLOBIN 31.6 pg (25-34); MEAN CORPUSCULAR HGB CONC 32.5 g/dl (32-36); MEAN PLATELET VOLUME 11.3 fL (7.4-10.4); MONO % 7.9 %; MONO ABS # 0.71 K/uL (0.11-0.59); NEUT % 64.2 %; NEUT ABS # 5.74 K/uL (1.4-6.5); PLATELET COUNT 272 K/uL (130-400); RED CELL DISTRIBUTION WIDTH CV 14.6 % (11.5-14.5); RED CELL DISTRIBUTION WIDTH SD 52.7 fL (36.4-46.3); WHITE BLOOD COUNT 8.94 K/uL (4.8-10.8)
[2017-11-02 19:52] LABS: ALBUMIN 3.5 gm/dl (3.4-5.0); CALCIUM 8.8 mg/dl (8.5-10.1); POTASSIUM 4.7 mmol/L (3.5-5.1)
--- NOTE | 2017-11-02 20:43 | DIAGNOSTIC IMAGING REPORT ---
ABD/PELVIS IV CONTRAST ONLY CLINICAL HISTORY: 87 years-old Male presenting with abd pain, constipation r/o obstruction. TECHNIQUE: Multidetector CT of the abdomen and pelvis was performed after the administration of intravenous contrast. IV contrast: 93 mL of Optiray 320. A dose lowering technique was used consistent with the principles of ALARA (as low as reasonably achievable). COMPARISON: 07/12/2013 performed at an outside hospital. CT DOSE (mGy.cm): The estimated cumulative dose is 281.64 mGy.cm. 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 Median sternotomy wires. Cardiomegaly. Lung bases: Architectural distortion with swirling pattern and peripheral subpleural consolidation in the right lower lobe consistent with rounded atelectasis. Associated pleural thickening and trace pleural fluid on the right. Nodular opacity in the right middle lobe (series 3 image 26). Peripheral subpleural dependent opacity in the left lower lobe. Marked multichamber enlargement of the heart. Aortic valve and coronary artery calcification. Additionally, calcification at the left ventricular apex with chronic mural thrombus, unchanged since 2012. This likely indicates prior myocardial infarction in this region. Liver: Normal morphology. Mild periportal edema suggested. No focal lesion. Patent portal veins. Hepatic veins not yet opacified. Biliary: Mild biliary ductal prominence likely a reservoir effect in the post cholecystectomy state. Gallbladder surgically absent. Pancreas: Severe parenchymal atrophy. Spleen: Distorted appearance may suggest splenosis. Adrenal glands: Nonspecific nodular thickening of the left adrenal gland. Right adrenal gland normal. Kidneys and ureters: Well-defined hypodensities in the kidneys likely simple cysts. No nephrolithiasis. No hydronephrosis. Normal ureters. Bladder: Normal. Pelvic organs: Prostate enlargement likely secondary to benign prostatic hyperplasia. Bowel: Few scattered colonic diverticula. Moderate stool burden in the distended transverse colon. The appendix is normal. Gastrojejunostomy evident with wall thickening of the jejunum. Postsurgical changes of distal gastrectomy. Focus of air at the blind ending duodenal bulb. Short segment enteroenteric intussusception in the left abdomen (series 3 image 142). This does not appear to result in an obstruction. Peritoneal cavity: No free fluid or intraperitoneal gas. Lymph nodes: No enlarged lymph nodes in the abdomen or pelvis. Vasculature: Atherosclerosis of the normal caliber abdominal aorta. IVC patent. The splenic vein is absence likely indicating prior splenectomy and current splenosis. Abdominal wall: A focal collection is noted along the right anterior abdominal wall measuring 2.6 cm in diameter, present on prior exam, with a fat fluid level likely indicating fat necrosis. Small amount of fluid at the internal origin of the left inguinal canal, also present on prior exam, possibly chronic encysted hydrocele. Musculoskeletal: Degenerative changes of the spine. Osteopenia. IMPRESSION: 1. Large stool burden in the transverse colon, which is distended. This is consistent with constipation. 2. 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 Correlate with the patient's surgical history. No bowel obstruction. Short segment enteroenteric intussusception is likely chronic and of doubtful clinical significance. This is likely at the site of an end-to-side small bowel anastomosis. 3. Additional chronic changes in the abdomen and pelvis as on prior exam. 4. Right lower lobe rounded atelectasis. 5. Nodular opacity in the right middle lobe. This should be followed to resolution. An infectious/inflammatory etiology or chronic scarring is possible. 6. Likely extensive atelectasis or scarring in the left lower lobe. 7. Cardiomegaly. Electronically signed by: Josue Biswas M.D. 11/02/2017 8:42 PM Dictated Date/Time: 11/02/2017 8:29 PM
[2017-11-02] MEDS ORDERED: NTRGSL/4 SL (20:59)
[2017-11-02] MEDS ORDERED: SOAP SUDS ENEMA PR STA (21:22)
[2017-11-02] MEDS ORDERED: METOCLOPRAMIDE HCL INJ 5 MG/ML 2 ML VIAL IV STA (21:22)
[2017-11-02] MEDS ORDERED: DOCU100C31 PO (22:37)
[2017-11-02] MEDS ORDERED: MELO-84 PO (22:37)
[2017-11-02] MEDS ORDERED: METO-478 PO (22:37)
[2017-11-02] MEDS ORDERED: FURO-85 PO (22:37)
[2017-11-02] MEDS ORDERED: ACET-1256 PO (22:39)
[2017-11-02] MEDS ORDERED: POLY3350 PO (22:40)
[2017-11-02 22:52] VITALS: BP 129/87; PULSE 70; O2SAT 98
== END 2017-11-02 22:53 | disposition home or self-care (01) ==
LOC: C.EDB 18:06 → C.EDA 22:53
DX: K59.00 Constipation, unspecified (principal); I48.91 Unspecified atrial fibrillation; N40.0 Benign prostatic hyperplasia without lower urinary tract symptoms; N18.3 Chronic kidney disease, stage 3 (moderate); I25.10 Atherosclerotic heart disease of native coronary artery without angina pectoris; Z86.73 Personal history of transient ischemic attack (TIA), and cerebral infarction without residual deficits; F32.9 Major depressive disorder, single episode, unspecified; E11.9 Type 2 diabetes mellitus without complications; E78.5 Hyperlipidemia, unspecified; I12.9 Hypertensive chronic kidney disease with stage 1 through stage 4 chronic kidney disease, or unspecified chronic kidney disease; Z85.72 Personal history of non-Hodgkin lymphomas; Z85.819 Personal history of malignant neoplasm of unspecified site of lip, oral cavity, and pharynx; I50.20 Unspecified systolic (congestive) heart failure; Z90.81 Acquired absence of spleen; Z90.49 Acquired absence of other specified parts of digestive tract; Z95.1 Presence of aortocoronary bypass graft; Z80.9 Family history of malignant neoplasm, unspecified; Z87.891 Personal history of nicotine dependence; Z79.02 Long term (current) use of antithrombotics/antiplatelets; Z79.84 Long term (current) use of oral hypoglycemic drugs; Z79.899 Other long term (current) drug therapy

== ENCOUNTER 2018-04-21 17:48 | Emergency (ER) | payer OTHER ==
[~2018-04-21] VITALS: Ht 172.7 cm; Wt 54.1 kg
[~2018-04-21 17:48] MED LIST changes: +ACET-1256 PO; -AMOX1TAB42 PO; +Boost Nutritional Drink PO; -CARV3.122 PO; -CLOP1TAB15 PO; +CRFUDL PO; +CYT100 PO; -DFL100 PO; +DOCU100C31 PO; -FRS/40 PO; +FURO-85 PO; +METO-478 PO; +NTRGSL/4 SL; -OXYGEN; +PANT1TAB4 PO; -PILO5TAB10 PO
[2018-04-21 18:01] VITALS: Ht 172.7 cm; Wt 54.1 kg
--- NOTE | 2018-04-21 18:03 | EMERGENCY ROOM VISIT NOTE ---
History Report prepared by Bertram: Marleen Oro Under the Supervision of: Dr. Josef Garcia M.D. 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 He is accompanied by his daughter in law who reports the patient was getting out of his home van with his walker when he lost his balance and fell. 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 As per EMS, the patient denies any LOC, headache, nausea, blurred vision but he does have a hematoma to his head and a skin tear to his right elbow. 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 Negative blurred vision Review of Systems See HPI for pertinent positives and negatives. A total of ten systems were reviewed and were otherwise negative. 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 (17) Skin lesion (18) Status post left heart catheterization (LHC) (19) Stroke (20) Systolic congestive heart failure Surgical Problems: (1) H/O endarterectomy (2) H/O neck surgery (3) H/O oral surgery (4) H/O splenectomy (5) History of appendectomy (6) History of gastric surgery (7) History of mandibular surgery (8) History of pancreatic surgery (9) Hx of CABG (10) S/P cholecystectomy Family History FH: cancer FH: heart disease Social History Smoking Status: Former Smoker Housing Status: lives with family Occupation Status: retired Current/Historical Medications Scheduled Amiodarone Hcl (Cordarone), 100 MG PO QAM Citalopram Hydrobromide (Citalopram Hydrobromide), 10 MG PO QAM Docusate Sodium (Docusate Sodium), 100 MG PO BID Ferrous Sulfate (Ferrous Sulfate), 325 MG PO DAILY Furosemide (Lasix), 20 MG PO Q2D Levothyroxine Sodium (Synthroid), 100 MCG PO QAM Magnesium Oxide (Mag-Ox), 400 MG PO DAILY Metformin Hcl (Glucophage), 500 MG PO BIDM Metoclopramide Hcl (Metoclopramide Hcl), 5 MG PO AC Misoprostol (Misoprostol), 100 MCG PO QIDM Pantoprazole (Pantoprazole Sodium), 40 MG PO BID Rosuvastatin Calcium (Crestor), 5 MG PO DAILY [Boost Nutritional Drink], 1 BOX PO BID Scheduled PRN Acetaminophen (Tylenol), 500 MG PO Q4H PRN for Pain or Fever Nitroglycerin (Nitrostat), 0.4 MG SL UD PRN for Chest Pain Tramadol (Ultram), 50 MG PO Q6H PRN for Pain Allergies Coded Allergies: Aspirin (Verified Adverse Reaction, Severe, INCREASED BLEEDING, 04/21/18) Atorvastatin (Verified Adverse Reaction, Unknown, JOINT PAIN, 04/21/18) Simvastatin (Verified Adverse Reaction, Unknown, JOINT PAIN, 04/21/18) Physical Exam Vital Signs Date Time Temp Pulse Resp B/P (MAP) Pulse Ox O2 Delivery O2 Flow Rate FiO2 04/21/18 22:43 36.4 80 18 144/88 95 04/21/18 19:57 94 Room Air 04/21/18 18:01 36.4 77 20 146/80 94 Room Air Physical Exam GENERAL: Awake, alert, well appearing, in no acute distress. Baseline dysarthria. HEAD: Normocephalic. 10 cm right parietal scalp hematoma. No ayala sign. No raccoon eyes. EYES: Normal conjunctiva. PERRL. EARS: External ears normal. Right TM normal. Left TM normal. NOSE: Atraumatic OROPHARYNX: Lips, tongue, and mucosa unremarkable. No erythema or exudate. NECK: No tracheal deviation or JVD. No posterior midline tenderness. No step offs noted. RESPIRATORY: CTA bilaterally CARDIAC: Regular rate, normal rhythm. ABDOMEN: Inspection reveals no abnormalities. Soft, non distended. No tenderness to palpation. No hernias. BACK: No midline step offs or tenderness to palpation. Unremarkable. PELVIS: Stable to rock. SKIN: Normal. 5 cm proximal dorsal forearm stellate skin tear. LYMPH: No adenopathy. MUSCULOSKELETAL: Upper and lower extremities are atraumatic. NEURO: GCS 15. Normal sensorium. No sensory or motor deficits noted. Medical Decision & Procedures ER Provider Diagnostic Interpretation: Radiology results as stated below per my review and radiologist interpretation: CT SCAN OF THE BRAIN WITHOUT IV CONTRAST CLINICAL HISTORY: Trauma. Fall. COMPARISON STUDY: CT of the brain dated 03/12/2018. TECHNIQUE: Unenhanced axial CT scan of the brain is performed from the vertex to the skull base. A dose lowering technique was utilized adhering to the principles of ALARA. CT DOSE: 537.48 mGy.cm FINDINGS: Brain parenchyma: There is a large focus of left parietal encephalomalacia consistent with a remote infarct. Smaller chronic infarcts are seen within the occipital lobes in the right temporal lobe. There are age-related involutional changes noting mild subcortical and periventricular microangiopathic change. There is no hemorrhage, mass effect, or evidence of acute territorial ischemia by CT criteria. Gilman-white matter is preserved. No extra-axial fluid collection is seen. Ventricles, sulci, cisterns: Prominent secondary to involutional change. Intracranial vasculature: There is atherosclerotic calcification of the cavernous carotid and vertebral arteries. Calvarium: The skeletal structures are osteopenic. No depressed calvarial fracture is seen.. Soft tissues: There is a small right temporal scalp hematoma. Sinuses and mastoids: The visualized paranasal sinuses are clear. The mastoid air cells are well pneumatized. Orbits: The bony orbits are grossly intact. There are bilateral ocular lens implants. IMPRESSION: 1. Senescent changes and remote infarcts as above. There is no hemorrhage, mass effect, or evidence of acute territorial ischemia by CT criteria. 2. There is a small right temporal scalp hematoma. No depressed calvarial fracture is seen. Electronically signed by: Aris Khan M.D. 04/21/2018 6:37 PM SINGLE VIEW CHEST CLINICAL HISTORY: Atypical chest pain. FINDINGS: 2 AP, portable, semierect chest radiographs are compared to study dated 03/14/2018. Correlation is made with chest CT dated 07/17/2013. The examination is degraded by portable technique and patient rotation. The patient is status post midline sternotomy. The heart is enlarged and there is atherosclerotic calcification of the thoracic aorta. The pulmonary vasculature is noncongested. Myocardial calcification is unchanged from prior studies. There are small pleural effusions, right larger than left with associated atelectasis. No airspace consolidation is seen typical for pneumonia. No pneumothorax is seen. The skeletal structures are osteopenic. The bony thorax is grossly intact. IMPRESSION: 1. Cardiomegaly without radiographic evidence of congestive failure. 2. There are small pleural effusions with bibasilar atelectasis. This is similar to previous. Electronically signed by: Aris Khan M.D. 04/21/2018 7:45 PM Laboratory Results 04/21/18 19:54 Red Blood Count 3.68, Mean Corpuscular Volume 94.6, Mean Corpuscular Hemoglobin 28.8, Mean Corpuscular Hemoglobin Concent 30.5, Mean Platelet Volume 11.1, Neutrophils (%) (Auto) 84.2, Lymphocytes (%) (Auto) 7.3, Monocytes (%) (Auto) 7.3, Eosinophils (%) (Auto) 0.7, Basophils (%) (Auto) 0.3, Neutrophils # (Auto) 8.13, Lymphocytes # (Auto) 0.71, Monocytes # (Auto) 0.71, Eosinophils # (Auto) 0.07, Basophils # (Auto) 0.03 04/21/18 19:54 Test 04/21/18 19:54 04/21/18 19:58 White Blood Count 9.67 K/uL (4.8-10.8) Red Blood Count 3.68 M/uL (4.7-6.1) Hemoglobin 10.6 g/dL (14.0-18.0) Hematocrit 34.8 % (42-52) Mean Corpuscular Volume 94.6 fL (80-100) Mean Corpuscular Hemoglobin 28.8 pg (25-34) Mean Corpuscular Hemoglobin Concent 30.5 g/dl (32-36) Platelet Count 249 K/uL (130-400) Mean Platelet Volume 11.1 fL (7.4-10.4) Neutrophils (%) (Auto) 84.2 % Lymphocytes (%) (Auto) 7.3 % Monocytes (%) (Auto) 7.3 % Eosinophils (%) (Auto) 0.7 % Basophils (%) (Auto) 0.3 % Neutrophils # (Auto) 8.13 K/uL (1.4-6.5) Lymphocytes # (Auto) 0.71 K/uL (1.2-3.4) Monocytes # (Auto) 0.71 K/uL (0.11-0.59) Eosinophils # (Auto) 0.07 K/uL (0-0.5) Basophils # (Auto) 0.03 K/uL (0-0.2) RDW Standard Deviation 54.7 fL (36.4-46.3) RDW Coefficient of Variation 15.8 % (11.5-14.5) Immature Granulocyte % (Auto) 0.2 % Immature Granulocyte # (Auto) 0.02 K/uL (0.00-0.02) Prothrombin Time 10.4 SECONDS (9.0-12.0) Prothromb Time International Ratio 1.0 (0.9-1.1) Anion Gap 5.0 mmol/L (3-11) Est Creatinine Clear Calc Drug Dose 41.1 ml/min Estimated GFR () 82.5 Estimated GFR (Non- 71.2 BUN/Creatinine Ratio 15.3 (10-20) Calcium Level 9.2 mg/dl (8.5-10.1) Phosphorus Level 3.5 mg/dl (2.5-4.9) Magnesium Level 2.1 mg/dl (1.8-2.4) Total Bilirubin 0.2 mg/dl (0.2-1) Direct Bilirubin 0.1 mg/dl (0-0.2) Aspartate Amino Transf (AST/SGOT) 23 U/L (15-37) Alanine Aminotransferase (ALT/SGPT) 16 U/L (12-78) Alkaline Phosphatase 73 U/L (45-117) Troponin I < 0.015 ng/ml (0-0.045) Pro-B-Type Natriuretic Peptide 6276 pg/ml (0-1800) Total Protein 7.9 gm/dl (6.4-8.2) Albumin 3.5 gm/dl (3.4-5.0) Lipase 63 U/L (73-393) Thyroid Stimulating Hormone (TSH) 1.430 uIu/ml (0.300-4.500) Chemistry Specimen Hemolysis Urine Color YELLOW Urine Appearance CLEAR (CLEAR) Urine pH 5.0 (4.5-7.5) Urine Specific Whitfield 1.022 (1.000-1.030) Urine Protein NEG (NEG) Urine Glucose (UA) NEG (NEG) Urine Ketones NEG (NEG) Urine Occult Blood NEG (NEG) Urine Nitrite NEG (NEG) Urine Bilirubin NEG (NEG) Urine Urobilinogen NEG (NEG) Urine Leukocyte Esterase TRACE (NEG) Urine WBC (Auto) 1-5 /hpf (0-5) Urine RBC (Auto) 0-4 /hpf (0-4) Urine Hyaline Casts (Auto) 0 /lpf (0-5) Urine Epithelial Cells (Auto) 10-20 /lpf (0-5) Urine Bacteria (Auto) NEG (NEG) Laboratory results reviewed by me Medications Administered Medications (Trade) Dose Ordered Sig/Juliet Route Start Time Stop Time Status Last Admin Dose Admin Diphtheria/ Pertussis/Tetanus Vacc (Adacel Inj) 0.5 ml ONCE ONCE IM. 04/21/18 18:15 04/21/18 18:16 DC 04/21/18 18:30 0.5 ML ED Course 1753: The patient was evaluated in room B12. A complete history and physical exam was performed. 1831: I checked on the patient at this time. He will receive more lab tests. 2141: I reevaluated the patient. He was feeling better at this time. His family Is comfortable taking the patient home. Discussed results and discharge instructions: He and his family verbalized understanding and agreement. The patient is ready for discharge. Medical Decision I reviewed the patient's past medical history, medications, and the nursing notes as described above. Differential diagnosis: Etiologies such as fracture, dislocation, intra-abdominal, pneumothorax, intrathoracic , intracranial, neurologic, as well as other traumatic pathologies were entertained. The patient is an 87 y/o gentleman with a pmhx of prior CVA and jaw cancer with baseline aphasia who presents to the emergency department after having a mechanical fall when maneuver his walker per HPI. On arrival the patient is in NAD, AFVSS. On exam, speaking with baseline aphasia per family. Moving all extremities equally. 10cm right parietal hematoma. 5cm right elbow skin tear. CT head negative for acute findings. Skin tear cleaned and repaired with steri- strips and dressed with xeroform. Tetanus updated. At this time patient's family report that they thought patient's aphasia was a little worse than usual. We agree to do additional testing and reassess sx thereafter. Subsequent w/u unremarkable with H/H at recent baseline. Chemistry unremarkable. BNP 6000s however in setting of known CHF without active respiratory sx. Patient reassessed and family felt he had improved and so preferred discharge despite being offered option for admission. Patient does have wound care nurse tomorrow , who visits twice weekly. Findings and plan for follow-up reviewed with patient and family. Patient and family agreeable and d/c'd per discharge instructions. Medication Reconcilliation Current Medication List: was personally reviewed by me Blood Pressure Screening Patient's blood pressure: Elevated blood pressure Blood pressure disposition: Elevated BP felt to be situational Impression Primary Impression: Closed head injury Additional Impressions: Hematoma of right parietal scalp Skin tear of elbow without complication Scribe Attestation The scribe's documentation has been prepared under my direction and personally reviewed by me in its entirety. I confirm that the note above accurately reflects all work, treatment, procedures, and medical decision making performed by me. Departure Information Dispostion Home / Self-Care Referrals Erich Moreno M.D. (PCP) Forms HOME CARE DOCUMENTATION FORM, IMPORTANT VISIT INFORMATION Patient Instructions ED Contusion Scalp, ED Head Injury Closed, ED Hematoma, ED Laceration All, ED Mechanical Fall, My [facility] Additional Instructions Please follow up with your primary care physician tomorrow for re-evaluation. You were evaluated for your fall and closed head injury. Otherwise, your exam, EKG, chest xray, lab results, and CT scan did not show signs of an emergent condition at this time. Acetaminophen for pain and fevers as needed. Daily non-adherent dressing changes per your wound care nurse. Ensure hydration. Return to the emergency department for worsening symptoms as described in the accompanying instructions. Problem Qualifiers
[2018-04-21] MEDS ORDERED: DIPHTHERIA/TETANUS/PERTUSSIS 0.5 ML SYR/VIAL IM. ONE (18:15)
--- NOTE | 2018-04-21 18:38 | DIAGNOSTIC IMAGING REPORT ---
CT SCAN OF THE BRAIN WITHOUT IV CONTRAST CLINICAL HISTORY: Trauma. Fall. COMPARISON STUDY: CT of the brain dated 03/12/2018. TECHNIQUE: Unenhanced axial CT scan of the brain is performed from the vertex to the skull base. A dose lowering technique was utilized adhering to the principles of ALARA. CT DOSE: 537.48 mGy.cm FINDINGS: Brain parenchyma: There is a large focus of left parietal encephalomalacia consistent with a remote infarct. Smaller chronic infarcts are seen within the occipital lobes in the right temporal lobe. There are age-related involutional changes noting mild subcortical and periventricular microangiopathic change. There is no hemorrhage, mass effect, or evidence of acute territorial ischemia by CT criteria. Gilman-white matter is preserved. No extra-axial fluid collection is seen. Ventricles, sulci, cisterns: Prominent secondary to involutional change. Intracranial vasculature: There is atherosclerotic calcification of the cavernous carotid and vertebral arteries. Calvarium: The skeletal structures are osteopenic. No depressed calvarial fracture is seen.. Soft tissues: There is a small right temporal scalp hematoma. Sinuses and mastoids: The visualized paranasal sinuses are clear. The mastoid air cells are well pneumatized. Orbits: The bony orbits are grossly intact. There are bilateral ocular lens implants. IMPRESSION: 1. Senescent changes and remote infarcts as above. There is no hemorrhage, mass effect, or evidence of acute territorial ischemia by CT criteria. 2. There is a small right temporal scalp hematoma. No depressed calvarial fracture is seen. Electronically signed by: Aris Khan M.D. 04/21/2018 6:37 PM Dictated Date/Time: 04/21/2018 6:30 PM
--- NOTE | 2018-04-21 19:47 | DIAGNOSTIC IMAGING REPORT ---
SINGLE VIEW CHEST CLINICAL HISTORY: Atypical chest pain. FINDINGS: 2 AP, portable, semierect chest radiographs are compared to study dated 03/14/2018. Correlation is made with chest CT dated 07/17/2013. The examination is degraded by portable technique and patient rotation. The patient is status post midline sternotomy. The heart is enlarged and there is atherosclerotic calcification of the thoracic aorta. The pulmonary vasculature is noncongested. Myocardial calcification is unchanged from prior studies. There are small pleural effusions, right larger than left with associated atelectasis. No airspace consolidation is seen typical for pneumonia. No pneumothorax is seen. The skeletal structures are osteopenic. The bony thorax is grossly intact. IMPRESSION: 1. Cardiomegaly without radiographic evidence of congestive failure. 2. There are small pleural effusions with bibasilar atelectasis. This is similar to previous. Electronically signed by: Aris Khan M.D. 04/21/2018 7:45 PM Dictated Date/Time: 04/21/2018 7:43 PM
[2018-04-21 19:57] VITALS: O2SAT 94
[2018-04-21] MEDS ORDERED: TRAM-10 PO (20:24)
[2018-04-21] MEDS ORDERED: FERR1TAB62 PO (20:24)
[2018-04-21 20:27] LABS: BASO % 0.3 %; BASO ABS # 0.03 K/uL (0-0.2); EOS % 0.7 %; EOS ABS # 0.07 K/uL (0-0.5); HEMATOCRIT 34.8 % (42-52); HEMOGLOBIN 10.6 g/dL (14.0-18.0); IG# 0.02 K/uL (0.00-0.02); LYMPH % 7.3 %; LYMPH ABS # 0.71 K/uL (1.2-3.4); MEAN CELL VOLUME 94.6 fL (80-100); MEAN CORPUSCULAR HEMOGLOBIN 28.8 pg (25-34); MEAN CORPUSCULAR HGB CONC 30.5 g/dl (32-36); MEAN PLATELET VOLUME 11.1 fL (7.4-10.4); MONO % 7.3 %; MONO ABS # 0.71 K/uL (0.11-0.59); NEUT % 84.2 %; NEUT ABS # 8.13 K/uL (1.4-6.5); PLATELET COUNT 249 K/uL (130-400); RED CELL DISTRIBUTION WIDTH CV 15.8 % (11.5-14.5); RED CELL DISTRIBUTION WIDTH SD 54.7 fL (36.4-46.3); WHITE BLOOD COUNT 9.67 K/uL (4.8-10.8)
[2018-04-21 21:07] LABS: ALBUMIN 3.5 gm/dl (3.4-5.0); ALKALINE PHOSPHATASE 73 U/L (45-117); ALT/SGPT 16 U/L (12-78); AST/SGOT 23 U/L (15-37); BLOOD UREA NITROGEN 15 mg/dl (7-18); CALCIUM 9.2 mg/dl (8.5-10.1); CARBON DIOXIDE 31 mmol/L (21-32); CREATININE 0.95 mg/dl (0.60-1.40); GLUCOSE 103 mg/dl (70-99); LIPASE 63 U/L (73-393); PHOSPHORUS 3.5 mg/dl (2.5-4.9); POTASSIUM 5.1 mmol/L (3.5-5.1); SODIUM 135 mmol/L (136-145); TOTAL PROTEIN 7.9 gm/dl (6.4-8.2)
[2018-04-21 22:43] VITALS: BP 144/88; PULSE 80; TEMP 36.4; O2SAT 95
== END 2018-04-21 22:44 | disposition home or self-care (01) ==
LOC: EDBD 17:48 → C.EDB 17:49
DX: S00.93XA Contusion of unspecified part of head, initial encounter (principal); S51.011A Laceration without foreign body of right elbow, initial encounter; W17.89XA Other fall from one level to another, initial encounter; Z23 Encounter for immunization; R40.2412 Glasgow coma scale score 13-15, at arrival to emergency department; I12.9 Hypertensive chronic kidney disease with stage 1 through stage 4 chronic kidney disease, or unspecified chronic kidney disease; N18.3 Chronic kidney disease, stage 3 (moderate); E11.22 Type 2 diabetes mellitus with diabetic chronic kidney disease; I25.10 Atherosclerotic heart disease of native coronary artery without angina pectoris; E03.9 Hypothyroidism, unspecified; Z86.73 Personal history of transient ischemic attack (TIA), and cerebral infarction without residual deficits; Z87.891 Personal history of nicotine dependence; Z79.84 Long term (current) use of oral hypoglycemic drugs; Z79.899 Other long term (current) drug therapy; Z88.8 Allergy status to other drugs, medicaments and biological substances; Z88.6 Allergy status to analgesic agent

== ENCOUNTER 2018-09-14 15:23 | Inpatient (IN) ==
[2018-09-14] MEDS ORDERED: ALBUT/IPRATROP 3MG/0.5MG NEB 3 ML VIAL NEB STA (15:42)
[2018-09-14 15:54] LABS: Basophils # (auto) 0.02 K/uL (0-0.2); Basophils % (auto) 0.3 %; Eosinophils # (auto) 0.01 K/uL (0-0.5); Eosinophils % (auto) 0.2 %; Hematocrit (blood only) 34.6 % (42-52); Hemoglobin 10.4 g/dL (14.0-18.0); Immature Granulocytes # (auto) 0.01 K/uL (0.00-0.02); Immature Granulocytes % (auto) 0.2 %; Lymphocytes # (auto) 1.06 K/uL (1.2-3.4); Lymphocytes % (auto) 16.1 %; Mean Corpuscular Hgb Conc 30.1 g/dL (32-36); Mean Corpuscular Volume 89.6 fL (80-100); Mean Platelet Volume 11.5 fL (7.4-10.4); Monocytes # (auto) 0.94 K/uL (0.11-0.59); Monocytes % (auto) 14.3 %; Neutrophils # (auto) 4.55 K/uL (1.4-6.5); Neutrophils % (auto) 68.9 %; Platelet Count 227 K/uL (130-400); RDW Coefficient of Variation 20.1 % (11.5-14.5); RDW Standard Deviation 64.9 fL (36.4-46.3); Red Blood Count 3.86 M/uL (4.7-6.1); White Blood Count 6.59 K/uL (4.8-10.8)
[2018-09-14 16:01] LABS: Alanine Aminotransferase 32 U/L (12-78); Albumin Level 2.8 gm/dl (3.4-5.0); Aspartate Aminotransferase 23 U/L (15-37); BUN Creatinine Ratio 18.9 (10-20); Blood Urea Nitrogen 23 mg/dl (7-18); Calcium 8.5 mg/dl (8.5-10.1); Carbon Dioxide 24 mmol/L (21-32); Chloride 104 mmol/L (98-107); Creatinine Clr Calc Pharmacy 35.4 ml/min; Est GFR (African American) 61.8; Est GFR (Non-African American) 53.3; Glucose 100 mg/dl (70-99); Sodium 138 mmol/L (136-145)
--- NOTE | 2018-09-14 16:05 | XRay Report ---
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 Prior median sternotomy. Calcification the thoracic aortic arch. Unchanged mediastinal widening. N o pneumothorax. Small bilateral pleural effusions. Pulmonary vascular congestion with interstitial co arsening and bibasilar opacities. Degenerative changes of the shoulders and spine. IMPRESSION: 1. Cardiomegaly with pulmonary edema. 2. Small bilateral pleural effusions with bibasilar opacities suggestive of atelectasis or pneumoniti s. The above report was generated using voice recognition software. It may contain grammatical, syntax o r spelling errors. Electronically signed by: Rosalino Gonzalez M.D. 09/14/2018 4:04 PM
[2018-09-14 16:06] LABS: Albumin Globulin Ratio 0.6 (0.9-2); Alkaline Phosphatase 100 U/L (45-117); Bilirubin,Total 0.4 mg/dl (0.1-1); Globulin 4.8 gm/dl (2.5-4.0); Total Protein 7.6 gm/dl (6.4-8.2); Troponin I < 0.015 ng/ml (0-0.045)
[2018-09-14 16:12] LABS: Hypochromasia Present; Polychromasia 1+
[2018-09-14] MEDS ORDERED: AMPICILLIN/SULBACTAM SOD 3,000 MG in 0.9 % SODIUM CHLORIDE 100 ML IV STA (16:53)
[2018-09-14] MEDS ORDERED: FUROSEMIDE 40 MG/4 ML VIAL IV STA ×2 (16:53→18:15)
[2018-09-14] MEDS ORDERED: ACETAMINOPHEN 325 MG TAB PO PRN (18:17)
--- NOTE | 2018-09-14 18:38 | History & Physical Report ---
Date of Service September 14, 2018 Assessment & Plan (1) Systolic congestive heart failure: Has history of systolic heart failure Presented with acute on chronic systolic heart failure Chest x-ray suggestive of CHF and no evidence of any pneumonia Started with intravenous Lasix 40 mg twice daily We will continue with oxygen to maintain saturation We will get echocardiogram to evaluate LV for Admit to telemetry unit Present on Admission?: Yes (2) Atrial fibrillation: Rate is controlled now Has been on amiodarone Continue amiodarone for now (3) DM2 (diabetes mellitus, type 2): Hold metformin Sliding scale insulin coverage Hemoglobin A1c (4) HTN (hypertension): Blood pressure seems to be controlled Continue current antibiotic (5) Hypothyroid: Continue replacement (6) Pancreatic cancer: History of pancreatic cancer and also history of gastric cancer cancer Status post multiple surgery in abdomen with scars No evidence of any incisional hernia at this time (7) DVT prophylaxis: Heparin subcu History of Present Illness Chief Complaint: Increasing shortness of breath with productive cough for the last few days Primary Care Provider: Erich Moreno MD Is an 88-year-old male with significant past medical history including history of pancreatic cancer and gastric cancer and also oral cancer status post surgery , history of lymphoma, history of CVA, CAD with atrial fibrillation on amiodarone, systolic heart failure and hypertension has been complaining of increasing shortness of breath with productive cough and also swelling involving the lower trunk and upper thigh areas. History is taken from the patient and the daughter. Cough has been productive with whitish phlegm but no history of fever and/or chills. No chest pain and/or palpitation. The daughter noticed to have swelling involving the lower chronic in both sides also upper thigh areas. No significant swelling of the legs. Denies any problem with urine and her bowel habit. Apparently the patient is more or less bedbound with minimal activity and uses a walker at times. In ER he was noted to have shortness of breath with 90% saturation on room air and apparent investigation showed that he has acute CHF chest x-ray. Relevant blood test was unremarkable. He was admitted to telemetry unit for continuation of care. Allergies Allergy/AdvReac Type Severity Reaction Status Date / Time aspirin AdvReac Severe INCREASED Verified 09/14/18 17:40 BLEEDING atorvastatin AdvReac Mild JOINT PAIN Verified 09/14/18 17:40 simvastatin AdvReac Mild JOINT PAIN Verified 09/14/18 17:40 Home Medications Home Medications Medication Instructions Recorded Confirmed Type nitroglycerin 1 tab SUBLINGUAL UD PRN #0 12/13/09 09/14/18 History magnesium oxide 400 mg PO QPM #0 12/20/09 09/14/18 History amiodarone [Pacerone] 100 mg PO QAM #0 07/24/13 09/14/18 History citalopram 10 mg PO QAM #0 07/24/13 09/14/18 History metformin [Glucophage] 500 mg PO BIDM #0 tab 07/24/13 09/14/18 History metoclopramide HCl [Reglan] 5 mg PO AC #0 07/24/13 09/14/18 History rosuvastatin [Crestor] 5 mg PO 3XWK #0 tab 07/24/13 09/14/18 History levothyroxine 100 mcg PO QAM #0 tab 01/17/17 09/14/18 History acetaminophen 500 mg PO Q4H PRN #0 tab 11/02/17 09/14/18 History ferrous sulfate 325 mg PO QAM #0 04/21/18 09/14/18 History tramadol [Ultram] 50 mg PO Q6H PRN #0 04/21/18 09/14/18 History pantoprazole [Protonix] 40 mg PO DAILY 05/24/18 09/14/18 History albuterol sulfate 2 inha INH Q6H PRN #8 gm 07/20/18 09/14/18 Rx docusate sodium 100 mg PO BID PRN 09/14/18 09/14/18 History finasteride 5 mg PO DAILY 09/14/18 09/14/18 History sennosides [senna] 8.6 mg PO DAILY PRN 09/14/18 09/14/18 History tamsulosin [Flomax] 0.4 mg PO HS 09/14/18 09/14/18 History Past Med/Surg History Social History Current Living Situation: Alone Feels Safe at Home: Yes Smoking Status: Never smoker Tobacco Type: cigarettes and smokeless tobacco Second Hand Exposure: No Hx Alcohol Use: No Hx Substance Use: No Beliefs That Will Affect Care: None Preferred Language: Tajik Review of Systems All systems reviewed & are unremarkable except as noted in HPI & below Respiratory: + cough, + chest congestion and + dyspnea Cardiovascular: no chest pain Gastrointestinal: + bloating, + early satiety and + nausea; no vomiting Genitourinary (Male): no dysuria and no urinary frequency Musculoskeletal: + muscle weakness Physical Exam 2 Vital Signs (Past 24 Hours): Last Vital Signs Temp 35.9 C L 09/14/18 15:33 Pulse 76 09/14/18 17:08 Resp 16 09/14/18 17:08 BP 144/74 H 09/14/18 17:08 Pulse Ox 96 09/14/18 17:08 Physical Exam: Lying in bed comfortably Constitutional: WD/WN, vitals as above (No apparent distress at rest) Eyes: PERRL, conjunctivae normal, anicteric sclerae Neck: trachea midline, no thyromegaly Right facial deformity especially lower jaw area. No tenderness to palpation Respiratory: + respiratory distress (Minimal respiratory) Auscultation: + diminished lung sounds and + crackles (At the bases); no wheezes Cardiovascular: Rate/Rhythm: regular rate; + abnormal rhythm Heart Sounds: normal S1, normal S2 and + murmur (2/6 ejection systolic murmur over precordium ) Gastrointestinal (Abdomen): Inspection/Auscultation: normal bowel sounds, + abdominal edema (Around lower abdomen and bilateral flank area) and + abdominal surgical incision Percussion/Palpation: abdomen soft Musculoskeletal: No acute arthritis in any joint Neurologic: moves all extremities and awake Results & Data Laboratory Results Short CBC 09/14/18 Range/Units 15:31 WBC 6.59 (4.8-10.8) K/uL Hgb 10.4 L (14.0-18.0) g/dL Hct 34.6 L (42-52) % Plt Count 227 (130-400) K/uL BMP 09/14/18 15:31 Sodium 138 Potassium 5.0 Chloride 104 Carbon Dioxide 24 BUN 23 H Creatinine 1.20 Glucose 100 H Calcium 8.5 Cardiac Enzymes 09/14/18 Range/Units 15:31 Troponin I < 0.015 (0-0.045) ng/ml Liver Function 09/14/18 Range/Units 15:31 Total Bilirubin 0.4 (0.1-1) mg/dl AST 23 (15-37) U/L ALT 32 (12-78) U/L Alkaline Phosphatase 100 (45-117) U/L Albumin 2.8 L (3.4-5.0) gm/dl Medications Administered Current Inpatient Medications Acetaminophen (Tylenol) 650 mg PO Q4H PRN PRN Reason: Pain or Fever Stop: 10/14/18 18:16 Furosemide (Lasix) 40 mg IV BID [facility] Stop: 10/14/18 20:59 Heparin Sodium (Porcine) (Heparin Sodium (Porcine)) 5,000 units SQ Q12 TABBY Stop: 10/14/18 20:59 Code Status & VTE Plan Code Status Full code VTE Prophylaxis Plan VTE Prophylaxis will be ordered: Yes
--- NOTE | 2018-09-14 19:16 | Emergency Department Note ---
History of Present Illness General Chief complaint: Shortness of Breath/Dyspnea Stated complaint: SOB Time Seen by Provider: 09/14/18 15:33 History of Present Illness Maximum Pain Intensity: 0 This patient comes in as described above after having a cough and increased respiratory symptoms. He currently lives at home has had some stomach bloating in the office notes has been wheezing. He does have a history of aspiration and has had strokes in the past. He has been coughing when he swallows. They are concerned about that. No fever. Had normal bowel movement without blood or melena. No fall or trauma. No chest pain no new focal numbness or weakness. He did see his ap processor today. No vomiting or fever. He has been more diffusely weak. No recent change in medication. Home Medications Home Medications Medication Instructions Recorded Confirmed Type nitroglycerin 1 tab SUBLINGUAL UD PRN #0 12/13/09 09/14/18 History magnesium oxide 400 mg PO QPM #0 12/20/09 09/14/18 History amiodarone [Pacerone] 100 mg PO QAM #0 07/24/13 09/14/18 History citalopram 10 mg PO QAM #0 07/24/13 09/14/18 History metformin [Glucophage] 500 mg PO BIDM #0 tab 07/24/13 09/14/18 History metoclopramide HCl [Reglan] 5 mg PO AC #0 07/24/13 09/14/18 History rosuvastatin [Crestor] 5 mg PO 3XWK #0 tab 07/24/13 09/14/18 History levothyroxine 100 mcg PO QAM #0 tab 01/17/17 09/14/18 History acetaminophen 500 mg PO Q4H PRN #0 tab 11/02/17 09/14/18 History ferrous sulfate 325 mg PO QAM #0 04/21/18 09/14/18 History tramadol [Ultram] 50 mg PO Q6H PRN #0 04/21/18 09/14/18 History pantoprazole [Protonix] 40 mg PO DAILY 05/24/18 09/14/18 History albuterol sulfate 2 inha INH Q6H PRN #8 gm 07/20/18 09/14/18 Rx docusate sodium 100 mg PO BID PRN 09/14/18 09/14/18 History finasteride 5 mg PO DAILY 09/14/18 09/14/18 History sennosides [senna] 8.6 mg PO DAILY PRN 09/14/18 09/14/18 History tamsulosin [Flomax] 0.4 mg PO HS 09/14/18 09/14/18 History Allergies Allergy/AdvReac Type Severity Reaction Status Date / Time aspirin AdvReac Severe INCREASED Verified 09/14/18 17:40 BLEEDING atorvastatin AdvReac Mild JOINT PAIN Verified 09/14/18 17:40 simvastatin AdvReac Mild JOINT PAIN Verified 09/14/18 17:40 Past Med/Surg History Medical History Pancreatic cancer (Chronic) Gastric cancer (Chronic) GI bleed (Resolved) Hypertension (Chronic) Lymphoma (Resolved) CVA (cerebrovascular accident) (Resolved) Coronary artery disease (Chronic) 1990 - s/p CABG x 4 2009 - BMS to RCA Atrial fibrillation (Chronic) Stroke (Chronic) Systolic congestive heart failure (Chronic) "echo 12/13/09 demonstrated LVEF 15-20%" Oral mass (Chronic) Skin lesion (Chronic) Oral-mouth cancer (Resolved) DM2 (diabetes mellitus, type 2) (Chronic) Depression (Chronic) Hypothyroid (Chronic) HTN (hypertension) (Chronic) HLD (hyperlipidemia) (Chronic) Carotid stenosis (Chronic) BPH (benign prostatic hyperplasia) (Chronic) CKD (chronic kidney disease), stage III (Chronic) Status post left heart catheterization (LHC) (Chronic) 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) Anemia (Inactive) Atrial fibrillation (Inactive) BPH (benign prostatic hyperplasia) (Inactive) CAD (coronary artery disease) (Inactive) Carotid stenosis (Inactive) Chronic kidney disease (Inactive) STAGE 3 Congestive heart failure (Inactive) ECHO FROM 12/13/09 SHOWED AN EF OF 15-20%, SYSTOLIC CHF Depression (Inactive) Diabetes mellitus, type 2 (Inactive) GI bleed (Inactive) Hyperlipidemia (Inactive) Hypertension (Inactive) Hypothyroidism (Inactive) 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 PINA H/O carotid endarterectomy (Inactive) L [address] PINA H/O inguinal hernia repair (Inactive) H/O lymph node excision (Inactive) SUPRAHYOID LYMPHADENECTOMY H/O splenectomy (Inactive) History of appendectomy (Inactive) History of cardiac cath (Inactive) 2009 @ [facility] [place] FOLLOWS W DR. LEMUS History of cataract surgery (Inactive) BILATERAL History of colonoscopy (Inactive) History of coronary artery bypass graft (Inactive) QUADRUPLE BYPASS 1990 @ [place], FOLLOWS W DR. LEMUS History of esophagogastroduodenoscopy (EGD) (Inactive) History of mandibular surgery (Inactive) PARTIAL RECONSTRUCTION OF JAW/REMOVAL LOWER JAW 2012 History of pancreatic surgery (Inactive) PARTIAL REMOVAL History of tooth extraction (Inactive) Hx of cholecystectomy (Inactive) Hx of transurethral resection of prostate (Inactive) Family History Other No significant family history Social History Current Living Situation: Family Other Information That Helps Us Care for You: No Feels Safe at Home: Yes Safety Concerns: Feels Safe At This Time Smoking Status: Never smoker Tobacco Type: cigarettes and smokeless tobacco Second Hand Exposure: No Hx Alcohol Use: No Hx Substance Use: No Beliefs That Will Affect Care: None Preferred Language: Greek Communication Ability: Effective Immunizations: History was obtained from the patient as well as multiple family members who are at the bedside Review of Systems See HPI for pertinent positives & negatives. and A total of 10 systems reviewed and were otherwise negative Physical Exam Vital Signs Vital Signs - 24 hr 09/14/18 15:33 09/14/18 17:06 09/14/18 17:08 Temperature 35.9 C L Temperature Source Oral Sepsis Recent Fever Within 48 Hours No Sepsis Action Taken by Nursing No Action Required Pulse Rate 90 Pulse Rate [Apical] 76 Pulse Rate [Finger] Pulse Rhythm [Apical] Regular Pulse Strength [Apical] Normal Respiratory Rate 20 16 Respiratory Effort / Characteristics Spontaneous Non-Labored Respiratory Depth Normal Normal Respiratory Pattern Regular Regular Blood Pressure 120/74 Blood Pressure [Right Arm] 144/74 H Blood Pressure Mean 89 Blood Pressure Mean [Right Arm] 97 Blood Pressure Position Sitting Blood Pressure Position [Right Arm] Lying Pulse Oximetry 90 97 96 Oxygen Delivery Method Room Air Nasal Cannula Nasal Cannula Oxygen Flow Rate 0 2 09/14/18 18:00 09/14/18 19:08 09/14/18 22:10 Temperature Temperature Source Sepsis Recent Fever Within 48 Hours Sepsis Action Taken by Nursing Pulse Rate 75 Pulse Rate [Apical] 78 Pulse Rate [Finger] Pulse Rhythm [Apical] Pulse Strength [Apical] Respiratory Rate 20 18 Respiratory Effort / Characteristics Non-Labored Spontaneous Respiratory Depth Normal Respiratory Pattern Regular Blood Pressure 131/68 Blood Pressure [Right Arm] 127/75 Blood Pressure Mean Blood Pressure Mean [Right Arm] 92 Blood Pressure Position Blood Pressure Position [Right Arm] Lying Pulse Oximetry 97 97 Oxygen Delivery Method Nasal Cannula Nasal Cannula Nasal Cannula Oxygen Flow Rate 2 2 2 09/14/18 22:27 09/14/18 22:32 09/14/18 22:34 Temperature 36.3 C L 36.6 C Temperature Source Oral Oral Sepsis Recent Fever Within 48 Hours Sepsis Action Taken by Nursing Pulse Rate 78 Pulse Rate [Apical] Pulse Rate [Finger] 73 73 Pulse Rhythm [Apical] Pulse Strength [Apical] Respiratory Rate 24 16 Respiratory Effort / Characteristics Respiratory Depth Respiratory Pattern Blood Pressure Blood Pressure [Right Arm] 121/67 121/67 Blood Pressure Mean Blood Pressure Mean [Right Arm] 85 85 Blood Pressure Position Blood Pressure Position [Right Arm] Lying Pulse Oximetry 96 96 Oxygen Delivery Method Room Air Nasal Cannula Oxygen Flow Rate 2 General: Well developed well nourished chronically ill-appearing older male on supplemental oxygen in no acute distress, breathing comfortably on room air. He seems to answer questions appropriately but is difficult to understand secondary to previous surgery/stroke. He does have baseline asymmetry of his right mouth. HEENT: Normal cephalic atraumatic. Pupils are equal round and reactive to light. Extraocular movements are intact. Oropharynx is pink with moist mucous membranes. No swelling of the mouth lips or tongue. Neck: Supple with a midline trachea. No meningeal signs or stiffness, no JVD or bruits. No Stridor. Chest: Clear to auscultation bilaterally with exception of crackles on the right lung field posterior. No increased work of breathing. Heart: Regular rate and rhythm without murmurs or gallops. Abdomen: Soft nontender, nondistended without rebound guarding or rigidity. Extremities: No cyanosis clubbing or edema. No calf tenderness or assymetry Spine/Back. Non tender to palpation. No CVA tenderness Skin: Good turgor without rashes. Neurologic exam: Cranial nerves two through 12 are intact. Motor and sensation are intact and symmetrical throughout. Course Administered Medications Heparin Sodium (Porcine) (Heparin Sodium (Porcine)) 5,000 units SQ Q12 TABBY Stop: 10/14/18 20:59 Last Admin: 09/14/18 21:12 Dose: 5,000 units Insulin Aspart (Novolog Flexpen) 0 units SC ACHS TABBY Stop: 10/14/18 20:59 Last Admin: 09/14/18 21:11 Dose: Not Given Magnesium Oxide (Mag-Ox) 400 mg PO QPM TABBY Stop: 10/14/18 20:59 Last Admin: 09/14/18 21:12 Dose: 400 mg Tamsulosin HCl (Flomax) 0.4 mg PO HS TABBY Stop: 10/14/18 20:59 Last Admin: 09/14/18 21:12 Dose: 0.4 mg Discontinued Medications Albuterol (Duoneb) 3 ml NEB NOW STA Stop: 09/14/18 15:43 Last Admin: 09/14/18 16:09 Dose: 3 ml Furosemide (Lasix) 20 mg IV NOW STA Stop: 09/14/18 16:54 Last Admin: 09/14/18 17:07 Dose: 20 mg Furosemide (Lasix) 60 mg IV NOW STA Stop: 09/14/18 18:16 Last Admin: 09/14/18 20:33 Dose: Not Given Ampicillin Sodium/Sulbactam Sodium 3,000 mg/ Sodium Chloride 108 mls @ 200 mls/ hr IV NOW STA Stop: 09/14/18 17:25 Last Infusion: 09/14/18 17:40 Dose: 0 mls/hr Admin: 09/14/18 17:07 Dose: 200 mls/hr Medical Decision Making Differential Diagnosis Differential Differential diagnosis includes: Pneumonia, aspiration, COPD, CHF, sepsis, neurologic disease, electrolyte or metabolic abnormalities, cardiac disease, arrhythmia, trauma Medical Records Attestation: I reviewed the patient's medical records. Home Medications Current Medication List: was personally reviewed by me Laboratory Data Attestation: I reviewed the patient's lab results. Result diagrams: 09/14/18 15:31 09/14/18 15:31 Lab Results 09/14/18 09/14/18 09/14/18 Range/Units 15:31 15:31 16:19 WBC 6.59 (4.8-10.8) K/uL RBC 3.86 L (4.7-6.1) M/uL Hgb 10.4 L (14.0-18.0) g/dL Hct 34.6 L (42-52) % MCV 89.6 (80-100) fL MCH 26.9 (25-34) pg MCHC 30.1 L (32-36) g/dL RDW Std Deviation 64.9 H (36.4-46.3) fL RDW Coeff of Vero 20.1 H (11.5-14.5) % Plt Count 227 (130-400) K/uL MPV 11.5 H (7.4-10.4) fL Immature Gran % (Auto) 0.2 % Neut % (Auto) 68.9 % Lymph % (Auto) 16.1 % Grand % (Auto) 14.3 % Eos % (Auto) 0.2 % Baso % (Auto) 0.3 % Immature Gran # (Auto) 0.01 (0.00-0.02) K/uL Neut # (Auto) 4.55 (1.4-6.5) K/uL Lymph # (Auto) 1.06 L (1.2-3.4) K/uL Grand # (Auto) 0.94 H (0.11-0.59) K/uL Eos # (Auto) 0.01 (0-0.5) K/uL Baso # (Auto) 0.02 (0-0.2) K/uL Polychromasia 1+ Hypochromasia Present Sodium 138 (136-145) mmol/L Potassium 5.0 (3.5-5.1) mmol/L Chloride 104 (98-107) mmol/L Carbon Dioxide 24 (21-32) mmol/L Anion Gap 10.0 (3-11) BUN 23 H (7-18) mg/dl Creatinine 1.20 (0.6-1.4) mg/dl Est Cr Clr Drug Dosing 35.4 ml/min Est GFR ( Amer) 61.8 Est GFR (Non-Af Amer) 53.3 BUN/Creatinine Ratio 18.9 (10-20) Glucose 100 H (70-99) mg/dl POC Glucose (70-99) POC Lactic Acid Alonso 3.43 H (0.90-1.70) mmol/L Calcium 8.5 (8.5-10.1) mg/dl Total Bilirubin 0.4 (0.1-1) mg/dl AST 23 (15-37) U/L ALT 32 (12-78) U/L Alkaline Phosphatase 100 (45-117) U/L Troponin I < 0.015 (0-0.045) ng/ml Total Protein 7.6 (6.4-8.2) gm/dl Albumin 2.8 L (3.4-5.0) gm/dl Globulin 4.8 H (2.5-4.0) gm/dl Albumin/Globulin Ratio 0.6 L (0.9-2) Lipase 59 L (73-393) U/L 09/14/18 09/14/18 Range/Units 21:09 22:13 WBC (4.8-10.8) K/uL RBC (4.7-6.1) M/uL Hgb (14.0-18.0) g/dL Hct (42-52) % MCV (80-100) fL MCH (25-34) pg MCHC (32-36) g/dL RDW Std Deviation (36.4-46.3) fL RDW Coeff of Vero (11.5-14.5) % Plt Count (130-400) K/uL MPV (7.4-10.4) fL Immature Gran % (Auto) % Neut % (Auto) % Lymph % (Auto) % Grand % (Auto) % Eos % (Auto) % Baso % (Auto) % Immature Gran # (Auto) (0.00-0.02) K/uL Neut # (Auto) (1.4-6.5) K/uL Lymph # (Auto) (1.2-3.4) K/uL Grand # (Auto) (0.11-0.59) K/uL Eos # (Auto) (0-0.5) K/uL Baso # (Auto) (0-0.2) K/uL Polychromasia Hypochromasia Sodium (136-145) mmol/L Potassium (3.5-5.1) mmol/L Chloride (98-107) mmol/L Carbon Dioxide (21-32) mmol/L Anion Gap (3-11) BUN (7-18) mg/dl Creatinine (0.6-1.4) mg/dl Est Cr Clr Drug Dosing ml/min Est GFR ( Amer) Est GFR (Non-Af Amer) BUN/Creatinine Ratio (10-20) Glucose (70-99) mg/dl POC Glucose 96 98 (70-99) POC Lactic Acid Alonso (0.90-1.70) mmol/L Calcium (8.5-10.1) mg/dl Total Bilirubin (0.1-1) mg/dl AST (15-37) U/L ALT (12-78) U/L Alkaline Phosphatase (45-117) U/L Troponin I (0-0.045) ng/ml Total Protein (6.4-8.2) gm/dl Albumin (3.4-5.0) gm/dl Globulin (2.5-4.0) gm/dl Albumin/Globulin Ratio (0.9-2) Lipase (73-393) U/L Imaging Data Attestation: I personally reviewed and interpreted this imaging study as follows : My Impression: There was increased interstitial markings likely consistent with mild CHF. There are possible infiltrates in the bases versus atelectasis Radiologist's Impression: Please refer to the x-ray report ECG Data Attestation: I personally reviewed and interpreted this ECG as follows: Indication: SOB/dyspnea Rate (beats per minute): 89 Rhythm: normal sinus Findings: + other (Poor R wave progression. Old inferior infarct.), + 1st degree AV block and + prolonged QT Comparison ECG Date: from (=18) Change: no significant change Blood Pressure Blood Pressure Findings: Normal blood pressure MDM Narrative This patient comes in as described above. He was placed in room B12. He is here for treatment and evaluation of cough and weakness and shortness of breath. there is concern that he could be aspirating. He was found to be hypoxemic was placed on oxygen. he does not what normally wear oxygen at home he was given a DuoNeb. A complete respiratory/cardiac/sepsis workup was done. He does have congestive heart failure changes versus infiltrates in the bases. He has no fever or white count. Lactic acid is elevated however they had a hard time drawn that and has been normotensive with a concern for fluid overload , he did not give him any extra fluids. He was given Unasyn 3 g IV for possible aspiration pneumonia. He was given Lasix 20 mg IV for fluid overload. Blood cultures have been obtained. I do think he needs to be admitted/ observe for further inpatient treatment and evaluation. I have discussed this with the hospitalist they agree and saw him in the ER for these measures. Impression & Plan Pneumonia, CHF (congestive heart failure), Hypoxemia Discharge Plan Visit Data *Final* Discharge Date/Time: 09/14/18 19:08 Chief Complaint: Shortness of Breath/Dyspnea Stated Complaint: SOB ED Provider: Theron Sherwood Discharge Problem: Pneumonia, CHF (congestive heart failure), Hypoxemia Patient Disposition: Admitted As Inpatient Discharge Instructions Interventions: ED Discharge Assessment Last Done: 09/14/18 19:08
[2018-09-14] MEDS ORDERED: ALBUTEROL HFA 8 GM INHALER INH PRN (20:00)
[2018-09-14] MEDS ORDERED: DOCUSATE SODIUM 100 MG CAP PO PRN (20:00)
[2018-09-14] MEDS ORDERED: TRAMADOL HCL 50 MG TABLET PO PRN (20:00)
[2018-09-14] MEDS ORDERED: SENNA 8.6 MG TAB PO PRN (20:00)
[2018-09-14] MEDS ORDERED: NITROGLYCERIN SL 0.4 MG/TAB TAB SL PRN (20:00)
[2018-09-14] MEDS ORDERED: CARBOHYDRATES FOR HYPOGLYCEMIA PO PRN (20:10)
[2018-09-14] MEDS ORDERED: GLUCAGON FOR INJ 1 MG VIAL IM PRN (20:10)
[2018-09-14] MEDS ORDERED: DEXTROSE 50% 50 ML SYRINGE IV PRN (20:10)
[2018-09-14] MEDS ORDERED: GLUCOSE 10 TABS/TUBE PO PRN (20:10)
[2018-09-14] MEDS ORDERED: GLUCOSE 40% GEL 15 GM TUBE PO PRN (20:10)
[2018-09-14] MEDS ORDERED: FUROSEMIDE 40 MG/4 ML VIAL IV SCH (21:00)
[2018-09-14] MEDS: INSULIN ASPART 100 UNITS/ML 3 ML PEN SC SCH (21:11)
[2018-09-14] MEDS: HEPARIN SOD 5,000 UNIT/0.5 ML VIAL SQ SCH (21:12)
[2018-09-14] MEDS: TAMSULOSIN HCL 0.4 MG CAP PO SCH (21:12)
[2018-09-14] MEDS: MAGNESIUM OXIDE 400 MG TAB PO SCH (21:12)
[2018-09-15] MEDS: LEVOTHYROXINE SODIUM 100 MCG TABLET PO SCH (05:23)
[2018-09-15 06:03] LABS: Nucleated RBC # (auto) 0.02 K/uL (0-0); Nucleated RBC % (auto) 0.3 %
[2018-09-15 06:40] LABS: BUN Creatinine Ratio 19.9 (10-20); Calcium 7.6 mg/dl (8.5-10.1); Creatinine Clr Calc Pharmacy 46.8 ml/min; Est GFR (African American) 84.1; Est GFR (Non-African American) 72.5
[2018-09-15 06:41] LABS: Basophils # (auto) 0.01 K/uL (0-0.2); Basophils % (auto) 0.2 %; Eosinophils # (auto) 0.06 K/uL (0-0.5); Hematocrit (blood only) 30.9 % (42-52); Hemoglobin 9.5 g/dL (14.0-18.0); Lymphocytes # (auto) 0.79 K/uL (1.2-3.4); Lymphocytes % (auto) 13.1 %; Mean Corpuscular Hgb Conc 30.7 g/dL (32-36); Mean Platelet Volume 11.2 fL (7.4-10.4); Monocytes # (auto) 0.83 K/uL (0.11-0.59); Monocytes % (auto) 13.7 %; Neutrophils # (auto) 4.35 K/uL (1.4-6.5); Platelet Count 199 K/uL (130-400); RDW Coefficient of Variation 19.7 % (11.5-14.5); RDW Standard Deviation 62.6 fL (36.4-46.3); Red Blood Count 3.51 M/uL (4.7-6.1); White Blood Count 6.04 K/uL (4.8-10.8)
[2018-09-15] MEDS: METOCLOPRAMIDE HCL 5 MG TABLET PO SCH ×3 (08:02→16:11)
[2018-09-15] MEDS: CITALOPRAM 20 MG TAB PO SCH (08:12)
[2018-09-15] MEDS: INSULIN ASPART 100 UNITS/ML 3 ML PEN SC SCH ×4 (08:12→22:06)
[2018-09-15] MEDS: AMIODARONE 200 MG TAB PO SCH (08:13)
[2018-09-15] MEDS: HEPARIN SOD 5,000 UNIT/0.5 ML VIAL SQ SCH ×2 (08:14→21:35)
[2018-09-15] MEDS: PANTOprazole 40 MG TAB PO SCH (08:14)
[2018-09-15] MEDS: FINASTERIDE 5 MG TAB PO SCH (08:14)
[2018-09-15] MEDS: FERROUS SULFATE 325 MG TAB PO SCH (08:14)
[2018-09-15] MEDS: FUROSEMIDE 40 MG in SYRINGE 0 ML IV SCH ×2 (08:16→16:10)
--- NOTE | 2018-09-15 14:15 | Cardiology Consultation ---
Date of Consultation September 15, 2018 Assessment & Plan (1) Acute on chronic systolic (congestive) heart failure: Patient responding to IV diuretics would continue. (2) Cardiomyopathy, ischemic: We will attempt to optimize medical therapies. Low blood pressures in past adverse reaction to DONG and arm therapies has limited treatment may consider addition of hydralazine and nitrates this admission. Patient has past statin intolerant (3) Paroxysmal atrial fibrillation: Patient in sinus rhythm we will continue low-dose amiodarone. Given right ventricular apical thrombus and atrial fibrillation would consider anticoagulation chronically with warfarin history is notable for past GI bleed History of Present Illness Reason for Consultation: Congestive heart failure ischemic cardiomyopathy Requesting Physician: Dr. Ennis Attending Physician: Geetha Ennis MD History of Present Illness Patient is a complex 88-year-old male past cardiac history as below 1. History of symptomatic paroxysmal atrial fibrillation, treated with amiodarone therapy. 2. History of severe ischemic cardiomyopathy, remote CABG, last SC in 2009 at which time he underwent bare metal stenting to the proximal RCA. 3. LVEF 20-25% by last evaluation. 4. Chronic post SC ventricular septal defect. 5. Carotid occlusive disease post CVA 6. Dyslipidemia 7. Stage III chronic kidney disease 8. Past hyperkalemia with DONG/ARB Past medical history is also significant for prior CVA recurrent pneumonia, aspiration, past pancreatic gastric and oral carcinoma. Patient presents this admission with Per records worsening cough shortness of breath times several days duration no overt fevers or chills. Symptoms were associated with increasing fatigue and abdominal bloating. On ER presentation for above he was found to have increased vascular congestion by chest x-ray He has been going on empiric therapy for pneumonia as well as diuresis and is referred now for further evaluation. Patient is unable to add additional information to above Allergies Allergy/AdvReac Type Severity Reaction Status Date / Time aspirin AdvReac Severe INCREASED Verified 09/14/18 17:40 BLEEDING atorvastatin AdvReac Mild JOINT PAIN Verified 09/14/18 17:40 simvastatin AdvReac Mild JOINT PAIN Verified 09/14/18 17:40 Home Medications Home Medications Medication Instructions Recorded Confirmed Type nitroglycerin 1 tab SUBLINGUAL UD PRN #0 12/13/09 09/14/18 History magnesium oxide 400 mg PO QPM #0 12/20/09 09/14/18 History amiodarone [Pacerone] 100 mg PO QAM #0 07/24/13 09/14/18 History citalopram 10 mg PO QAM #0 07/24/13 09/14/18 History metformin [Glucophage] 500 mg PO BIDM #0 tab 07/24/13 09/14/18 History metoclopramide HCl [Reglan] 5 mg PO AC #0 07/24/13 09/14/18 History rosuvastatin [Crestor] 5 mg PO 3XWK #0 tab 07/24/13 09/14/18 History levothyroxine 100 mcg PO QAM #0 tab 01/17/17 09/14/18 History acetaminophen 500 mg PO Q4H PRN #0 tab 11/02/17 09/14/18 History ferrous sulfate 325 mg PO QAM #0 04/21/18 09/14/18 History tramadol [Ultram] 50 mg PO Q6H PRN #0 04/21/18 09/14/18 History pantoprazole [Protonix] 40 mg PO DAILY 05/24/18 09/14/18 History albuterol sulfate 2 inha INH Q6H PRN #8 gm 07/20/18 09/14/18 Rx docusate sodium 100 mg PO BID PRN 09/14/18 09/14/18 History finasteride 5 mg PO DAILY 09/14/18 09/14/18 History sennosides [senna] 8.6 mg PO DAILY PRN 09/14/18 09/14/18 History tamsulosin [Flomax] 0.4 mg PO HS 09/14/18 09/14/18 History Patient History Medical History Pancreatic cancer (Chronic) Gastric cancer (Chronic) GI bleed (Resolved) Hypertension (Chronic) Lymphoma (Resolved) CVA (cerebrovascular accident) (Resolved) Coronary artery disease (Chronic) 1990 - s/p CABG x 4 2009 - BMS to RCA Atrial fibrillation (Chronic) Stroke (Chronic) Systolic congestive heart failure (Chronic) "echo 12/13/09 demonstrated LVEF 15-20%" Oral mass (Chronic) Skin lesion (Chronic) Oral-mouth cancer (Resolved) DM2 (diabetes mellitus, type 2) (Chronic) Depression (Chronic) Hypothyroid (Chronic) HTN (hypertension) (Chronic) HLD (hyperlipidemia) (Chronic) Carotid stenosis (Chronic) BPH (benign prostatic hyperplasia) (Chronic) CKD (chronic kidney disease), stage III (Chronic) Status post left heart catheterization (LHC) (Chronic) 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) Anemia (Inactive) Atrial fibrillation (Inactive) BPH (benign prostatic hyperplasia) (Inactive) CAD (coronary artery disease) (Inactive) Carotid stenosis (Inactive) Chronic kidney disease (Inactive) STAGE 3 Congestive heart failure (Inactive) ECHO FROM 12/13/09 SHOWED AN EF OF 15-20%, SYSTOLIC CHF Depression (Inactive) Diabetes mellitus, type 2 (Inactive) GI bleed (Inactive) Hyperlipidemia (Inactive) Hypertension (Inactive) Hypothyroidism (Inactive) 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 PINA H/O carotid endarterectomy (Inactive) L [address] PINA H/O inguinal hernia repair (Inactive) H/O lymph node excision (Inactive) SUPRAHYOID LYMPHADENECTOMY H/O splenectomy (Inactive) History of appendectomy (Inactive) History of cardiac cath (Inactive) 2009 @ [facility] [place] W DR. LEMUS History of cataract surgery (Inactive) BILATERAL History of colonoscopy (Inactive) History of coronary artery bypass graft (Inactive) QUADRUPLE BYPASS 1990 @ [place], FOLLOWS W DR. LEMUS History of esophagogastroduodenoscopy (EGD) (Inactive) History of mandibular surgery (Inactive) PARTIAL RECONSTRUCTION OF JAW/REMOVAL LOWER JAW 2012 History of pancreatic surgery (Inactive) PARTIAL REMOVAL History of tooth extraction (Inactive) Hx of cholecystectomy (Inactive) Hx of transurethral resection of prostate (Inactive) Family History Other No significant family history Social History Current Living Situation: Family Other Information That Helps Us Care for You: No Feels Safe at Home: Yes Safety Concerns: Feels Safe At This Time Smoking Status: Never smoker Tobacco Type: cigarettes and smokeless tobacco Second Hand Exposure: No Hx Alcohol Use: No Hx Substance Use: No Beliefs That Will Affect Care: None Preferred Language: Polish Communication Ability: Effective Review of Systems As per HPI or otherwise unobtainable Physical Exam 2 Vital Signs (Past 24 Hours): Last Vital Signs Temp 36.4 C L 09/15/18 11:57 Pulse 73 09/15/18 11:57 Resp 20 09/15/18 11:57 BP 122/70 09/15/18 11:57 Pulse Ox 95 09/15/18 11:57 Constitutional: + ill appearing and + thin; no acute distress Neck: Status post head and neck surgical excision Respiratory: Diminished breath sounds with crackles bibasilar right greater than left Cardiovascular: Rate/Rhythm: regular rate and regular rhythm Heart Sounds: normal S1; no gallop Vessels: no JVD Extremities: no edema Gastrointestinal (Abdomen): Percussion/Palpation: abdomen soft; abdomen nontender and no hepatosplenomegaly Results & Data Laboratory Results Laboratory Results - last 24 hr 09/14/18 09/14/18 09/14/18 15:31 15:31 16:19 WBC 6.59 RBC 3.86 L Hgb 10.4 L Hct 34.6 L MCV 89.6 MCH 26.9 MCHC 30.1 L RDW Std Deviation 64.9 H RDW Coeff of Vero 20.1 H Plt Count 227 MPV 11.5 H Immature Gran % (Auto) 0.2 Neut % (Auto) 68.9 Lymph % (Auto) 16.1 [place] % (Auto) 14.3 Eos % (Auto) 0.2 Baso % (Auto) 0.3 Immature Gran # (Auto) 0.01 Neut # (Auto) 4.55 Lymph # (Auto) 1.06 L [place] # (Auto) 0.94 H Eos # (Auto) 0.01 Baso # (Auto) 0.02 Absolute Nucleated RBC Nucleated RBC % (auto) Polychromasia 1+ Hypochromasia Present Sodium 138 Potassium 5.0 Chloride 104 Carbon Dioxide 24 Anion Gap 10.0 BUN 23 H Creatinine 1.20 Est Cr Clr Drug Dosing 35.4 Est GFR ( Amer) 61.8 Est GFR (Non-Af Amer) 53.3 BUN/Creatinine Ratio 18.9 Glucose 100 H POC Glucose POC Lactic Acid Alonso 3.43 H Calcium 8.5 Magnesium Total Bilirubin 0.4 AST 23 ALT 32 Alkaline Phosphatase 100 Troponin I < 0.015 Total Protein 7.6 Albumin 2.8 L Globulin 4.8 H Albumin/Globulin Ratio 0.6 L Lipase 59 L 09/14/18 09/14/18 09/14/18 21:09 22:13 22:52 WBC RBC Hgb Hct MCV MCH MCHC RDW Std Deviation RDW Coeff of Vero Plt Count MPV Immature Gran % (Auto) Neut % (Auto) Lymph % (Auto) [place] % (Auto) Eos % (Auto) Baso % (Auto) Immature Gran # (Auto) Neut # (Auto) Lymph # (Auto) [place] # (Auto) Eos # (Auto) Baso # (Auto) Absolute Nucleated RBC Nucleated RBC % (auto) Polychromasia Hypochromasia Sodium Potassium Chloride Carbon Dioxide Anion Gap BUN Creatinine Est Cr Clr Drug Dosing Est GFR ( Amer) Est GFR (Non-Af Amer) BUN/Creatinine Ratio Glucose POC Glucose 96 98 POC Lactic Acid Alonso Calcium Magnesium 1.9 Total Bilirubin AST ALT Alkaline Phosphatase Troponin I Total Protein Albumin Globulin Albumin/Globulin Ratio Lipase 09/15/18 09/15/18 09/15/18 05:53 05:53 07:38 WBC 6.04 RBC 3.51 L Hgb 9.5 L Hct 30.9 L MCV 88.0 MCH 27.1 MCHC 30.7 L RDW Std Deviation 62.6 H RDW Coeff of Vero 19.7 H Plt Count 199 MPV 11.2 H Immature Gran % (Auto) 0.0 Neut % (Auto) 72.0 Lymph % (Auto) 13.1 [place] % (Auto) 13.7 Eos % (Auto) 1.0 Baso % (Auto) 0.2 Immature Gran # (Auto) 0.00 Neut # (Auto) 4.35 Lymph # (Auto) 0.79 L [place] # (Auto) 0.83 H Eos # (Auto) 0.06 Baso # (Auto) 0.01 Absolute Nucleated RBC 0.02 H Nucleated RBC % (auto) 0.3 Polychromasia Hypochromasia Sodium 138 Potassium 4.0 D Chloride 103 Carbon Dioxide 29 Anion Gap 6.0 BUN 18 Creatinine 0.93 Est Cr Clr Drug Dosing 46.8 Est GFR ( Amer) 84.1 Est GFR (Non-Af Amer) 72.5 BUN/Creatinine Ratio 19.9 Glucose 83 POC Glucose 89 POC Lactic Acid Alonso Calcium 7.6 L Magnesium 2.0 Total Bilirubin AST ALT Alkaline Phosphatase Troponin I Total Protein Albumin Globulin Albumin/Globulin Ratio Lipase 09/15/18 11:45 WBC RBC Hgb Hct MCV MCH MCHC RDW Std Deviation RDW Coeff of Vero Plt Count MPV Immature Gran % (Auto) Neut % (Auto) Lymph % (Auto) [place] % (Auto) Eos % (Auto) Baso % (Auto) Immature Gran # (Auto) Neut # (Auto) Lymph # (Auto) [place] # (Auto) Eos # (Auto) Baso # (Auto) Absolute Nucleated RBC Nucleated RBC % (auto) Polychromasia Hypochromasia Sodium Potassium Chloride Carbon Dioxide Anion Gap BUN Creatinine Est Cr Clr Drug Dosing Est GFR ( Amer) Est GFR (Non-Af Amer) BUN/Creatinine Ratio Glucose POC Glucose 101 H POC Lactic Acid Alonso Calcium Magnesium Total Bilirubin AST ALT Alkaline Phosphatase Troponin I Total Protein Albumin Globulin Albumin/Globulin Ratio Lipase Diagnostic Findings Echocardiogram: Extensive ischemic cardiomyopathy with scarring and thinning of the apex septum and apical right ventricle EF approximately 20% with mild mitral and moderate to severe tricuspid insufficiency dilated inferior vena cava. Visualized thrombus is present in the right ventricular EKG sinus rhythm with first-degree AV block right bundle branch block extensive Q waves inferior and septal
--- NOTE | 2018-09-15 15:45 | Hospitalist Progress Note ---
Date of Service September 15, 2018 Assessment & Plan (1) Systolic congestive heart failure: Has history of systolic heart failure Presented with acute on chronic systolic heart failure Chest x-ray suggestive of CHF and no evidence of any pneumonia Started with intravenous Lasix 40 mg twice daily We will continue with oxygen to maintain saturation ECHO: Concentric left ventricular hypertrophy with global hypokinesis and tenderness of gold, EF 15-20%, RV dilatation with apical thrombus. Appreciate cardiology input and recommendation Clinically much better today following diuresis Will start Coumadin (2) Atrial fibrillation: Rate is controlled now Has been on amiodarone Continue amiodarone for now Rate is controlled Restart low-dose Coumadin Has high risk of bleeding with history of GI bleeding in the past We will discuss with the daughter (3) DM2 (diabetes mellitus, type 2): Hold metformin Sliding scale insulin coverage Hemoglobin A1c (4) HTN (hypertension): Blood pressure seems to be controlled Continue current antibiotic (5) Hypothyroid: Continue replacement (6) Pancreatic cancer: History of pancreatic cancer and also history of gastric cancer cancer, oral cancer and lymphoma Status post multiple surgery in abdomen with scars No evidence of any incisional hernia at this time (7) DVT prophylaxis: Heparin subcu CODE STATUS; he is a DNR Subjective 88-year-old male with significant past medical history of paroxysmal atrial fibrillation on amiodarone, ischemic cardiomyopathy, chronic systolic heart failure, hypothyroidism, history of CVA and history of multiple cancers including enteric cancer, gastric cancer and oral cancer and also lymphoma was admitted with increasing shortness of breath and edema for the last few days. Noted to have acute on chronic CHF on admission. 09/15 Patient was seen and examined in telemetry Please not better with intravenous Lasix and diuresis Echo noted to have a right ventricular thrombus Denies any symptoms today Respiratory: + cough, + chest congestion and + dyspnea Gastrointestinal: + bloating, + early satiety and + nausea; no vomiting Musculoskeletal: + muscle weakness Physical Exam 2 Vital Signs (Past 24 Hours): Last Vital Signs Temp 36.4 C L 09/15/18 15:10 Pulse 67 09/15/18 15:10 Resp 18 09/15/18 15:10 BP 115/55 L 09/15/18 15:10 Pulse Ox 96 09/15/18 15:10 Constitutional: WD/WN, vitals as above (No apparent distress at rest) Eyes: PERRL, conjunctivae normal, anicteric sclerae Neck: trachea midline, no thyromegaly Respiratory: + respiratory distress (Minimal respiratory) Auscultation: + diminished lung sounds and + crackles (At the bases); no wheezes Cardiovascular: Rate/Rhythm: regular rate; + abnormal rhythm Heart Sounds: normal S1, normal S2 and + murmur (2/6 ejection systolic murmur over precordium ) Gastrointestinal (Abdomen): Inspection/Auscultation: normal bowel sounds, + abdominal edema (Around lower abdomen and bilateral flank area) and + abdominal surgical incision Percussion/Palpation: abdomen soft Neurologic: moves all extremities and awake Results & Data Laboratory Results Short CBC 09/14/18 09/15/18 Range/Units 15:31 05:53 WBC 6.59 6.04 (4.8-10.8) K/uL Hgb 10.4 L 9.5 L (14.0-18.0) g/dL Hct 34.6 L 30.9 L (42-52) % Plt Count 227 199 (130-400) K/uL BMP 09/14/18 09/15/18 15:31 05:53 Sodium 138 138 Potassium 5.0 4.0 D Chloride 104 103 Carbon Dioxide 24 29 BUN 23 H 18 Creatinine 1.20 0.93 Glucose 100 H 83 Calcium 8.5 7.6 L Cardiac Enzymes 09/14/18 Range/Units 15:31 Troponin I < 0.015 (0-0.045) ng/ml Liver Function 09/14/18 Range/Units 15:31 Total Bilirubin 0.4 (0.1-1) mg/dl AST 23 (15-37) U/L ALT 32 (12-78) U/L Alkaline Phosphatase 100 (45-117) U/L Albumin 2.8 L (3.4-5.0) gm/dl Medications Administered Current Inpatient Medications Acetaminophen (Tylenol) 650 mg PO Q4H PRN PRN Reason: Pain or Fever Stop: 10/14/18 18:16 Albuterol (Ventolin Hfa) 1 puffs INH Q6H PRN PRN Reason: shortness of breath or wheezing Stop: 10/14/18 19:59 Amiodarone HCl (Cordarone) 100 mg PO [facility] Stop: 10/15/18 08:59 Last Admin: 09/15/18 08:13 Dose: 100 mg Citalopram Hydrobromide (Celexa) 10 mg PO QAM TABBY Stop: 10/15/18 08:59 Last Admin: 09/15/18 08:12 Dose: 10 mg Dextrose (Dextrose 50%) 25 - 50 ml IV UD PRN; Protocol PRN Reason: Hypoglycemia Protocol Stop: 10/14/18 20:09 Docusate Sodium (Colace) 100 mg PO BID PRN PRN Reason: Constipation Stop: 10/14/18 19:59 Ferrous Sulfate (Feosol) 325 mg PO QAM TABBY Stop: 10/15/18 08:59 Last Admin: 09/15/18 08:14 Dose: 325 mg Finasteride (Proscar) 5 mg PO DAILY TABBY Stop: 10/15/18 08:59 Last Admin: 09/15/18 08:14 Dose: 5 mg Glucagon (Glucagen) 1 mg IM UD PRN; Protocol PRN Reason: Hypoglycemia Protocol Stop: 10/14/18 20:09 Glucose (Glucose 40%) 15 - 30 gm PO UD PRN; Protocol PRN Reason: Hypoglycemia Protocol Stop: 10/14/18 20:09 Glucose (Dex4 Glucose) 4 - 8 tabs PO UD PRN; Protocol PRN Reason: Hypoglycemia Protocol Stop: 10/14/18 20:09 Heparin Sodium (Porcine) (Heparin Sodium (Porcine)) 5,000 units SQ Q12 TABBY Stop: 10/14/18 20:59 Last Admin: 09/15/18 08:14 Dose: 5,000 units Furosemide 40 mg/ Syringe 4 mls @ 4 mls/min IV [id number] TABBY Stop: 10/15/18 08:59 Last Admin: 09/15/18 08:16 Dose: 4 mls/min Insulin Aspart (Novolog Flexpen) 0 units SC ACHS TABBY Stop: 10/14/18 20:59 Last Admin: 09/15/18 12:33 Dose: Not Given Levothyroxine Sodium (Synthroid) 100 mcg PO DAILYBB TABBY Stop: 10/15/18 06:29 Last Admin: 09/15/18 05:23 Dose: 100 mcg Magnesium Oxide (Mag-Ox) 400 mg PO QPM TABBY Stop: 10/14/18 20:59 Last Admin: 09/14/18 21:12 Dose: 400 mg Metoclopramide HCl (Reglan) 5 mg PO AC TABBY Stop: 10/15/18 07:29 Last Admin: 09/15/18 11:38 Dose: 5 mg Miscellaneous (Carbohydrates For Hypoglycemia) 15 - 30 gm PO UD PRN PRN Reason: Hypoglycemia Treatment Stop: 10/14/18 20:09 Nitroglycerin (Nitrostat) 0.4 mg SL UD PRN PRN Reason: Angina Stop: 10/14/18 19:59 Pantoprazole Sodium (Protonix) 40 mg PO DAILY [facility] [place] Stop: 10/15/18 08:59 Last Admin: 09/15/18 08:14 Dose: 40 mg Rosuvastatin Calcium (Crestor) 5 mg PO [id number] [facility] [place] Stop: 10/16/18 08:59 Sennosides (Senokot) 8.6 mg PO DAILY PRN PRN Reason: Constipation Stop: 10/14/18 19:59 Tamsulosin HCl (Flomax) 0.4 mg PO HS [facility] [place] Stop: 10/14/18 20:59 Last Admin: 09/14/18 21:12 Dose: 0.4 mg Tramadol HCl (Ultram) 50 mg PO Q6H PRN PRN Reason: Pain Stop: 10/14/18 19:59
[2018-09-15 17:14] LABS: INR 1.3 (0.9-1.1); Prothrombin Time 12.6 Seconds (9.0-12.0)
[2018-09-15] MEDS: WARFARIN SOD 2.5 MG TAB PO SCH (18:25)
[2018-09-15] MEDS: MAGNESIUM OXIDE 400 MG TAB PO SCH (21:34)
[2018-09-15] MEDS: TAMSULOSIN HCL 0.4 MG CAP PO SCH (21:34)
[2018-09-16] MEDS: LEVOTHYROXINE SODIUM 100 MCG TABLET PO SCH (06:02)
[2018-09-16 06:06] LABS: Basophils # (auto) 0.01 K/uL (0-0.2); Basophils % (auto) 0.2 %; Eosinophils # (auto) 0.11 K/uL (0-0.5); Hematocrit (blood only) 32.6 % (42-52); Hemoglobin 10.1 g/dL (14.0-18.0); Immature Granulocytes # (auto) 0.01 K/uL (0.00-0.02); Immature Granulocytes % (auto) 0.2 %; Lymphocytes # (auto) 0.97 K/uL (1.2-3.4); Mean Corpuscular Volume 87.2 fL (80-100); Mean Platelet Volume 11.4 fL (7.4-10.4); Monocytes # (auto) 0.99 K/uL (0.11-0.59); Monocytes % (auto) 18.4 %; Neutrophils # (auto) 3.29 K/uL (1.4-6.5); Neutrophils % (auto) 61.2 %; Platelet Count 204 K/uL (130-400); RDW Coefficient of Variation 19.4 % (11.5-14.5); RDW Standard Deviation 61.3 fL (36.4-46.3); Red Blood Count 3.74 M/uL (4.7-6.1); White Blood Count 5.38 K/uL (4.8-10.8)
[2018-09-16 06:14] LABS: INR 1.2 (0.9-1.1); Prothrombin Time 12.3 Seconds (9.0-12.0)
[2018-09-16 06:32] LABS: BUN Creatinine Ratio 14.4 (10-20); Creatinine Clr Calc Pharmacy 43.1 ml/min; Est GFR (African American) 76.1; Est GFR (Non-African American) 65.6; Magnesium 1.6 mg/dl (1.8-2.4); Potassium 3.6 mmol/L (3.5-5.1)
[2018-09-16] MEDS: CITALOPRAM 20 MG TAB PO SCH (08:16)
[2018-09-16] MEDS: AMIODARONE 200 MG TAB PO SCH (08:16)
[2018-09-16] MEDS: PANTOprazole 40 MG TAB PO SCH (08:17)
[2018-09-16] MEDS: METOCLOPRAMIDE HCL 5 MG TABLET PO SCH ×3 (08:17→17:28)
[2018-09-16] MEDS: ROSUVASTATIN CALCIUM 5 MG TAB PO SCH (08:17)
[2018-09-16] MEDS: FERROUS SULFATE 325 MG TAB PO SCH (08:17)
[2018-09-16] MEDS: INSULIN ASPART 100 UNITS/ML 3 ML PEN SC SCH ×4 (08:18→21:23)
[2018-09-16] MEDS: FUROSEMIDE 40 MG in SYRINGE 0 ML IV SCH ×2 (08:18→17:29)
[2018-09-16] MEDS: FINASTERIDE 5 MG TAB PO SCH (08:18)
[2018-09-16] MEDS: HEPARIN SOD 5,000 UNIT/0.5 ML VIAL SQ SCH ×2 (08:20→21:25)
--- NOTE | 2018-09-16 10:04 | Cardiology Progress Note ---
Date of Service September 16, 2018 Assessment & Plan (1) Acute on chronic systolic (congestive) heart failure: Patient has had brisk response to IV diuretics will continue dosing today hold after p.m. dose (2) Cardiomyopathy, ischemic: We will attempt to optimize medical therapies. Low blood pressures in past adverse reaction to DONG and ARB therapies has limited treatment Will initiate isosorbide 10 mg twice per day follow blood pressure, consider addition of hydralazine depending on tolerance (3) Paroxysmal atrial fibrillation: Patient in sinus rhythm we will continue low-dose amiodarone. Warfarin has been begun for thrombus right ventricle, chronic atrial fibrillation Will supplement potassium today Subjective Patient seen and examined, chart medications telemetry reviewed. Patient appears brighter today still with moderate cough. Breathing less tenuous. Denies chest pains dizziness syncope, near syncope. Has had very brisk response to IV diuretics Warfarin initiated this admission Physical Exam 2 Vital Signs (Past 24 Hours): Last Vital Signs Temp 36.6 C 09/16/18 07:16 Pulse 63 09/16/18 07:16 Resp 18 09/16/18 07:16 BP 112/63 09/16/18 07:16 Pulse Ox 94 09/16/18 07:16 Constitutional: + thin; no acute distress Respiratory: Basilar rales and coarse wheezes audible with cough Cardiovascular: Rate/Rhythm: regular rate and regular rhythm Heart Sounds: normal S1; no gallop Vessels: no JVD Extremities: no edema Gastrointestinal (Abdomen): Percussion/Palpation: abdomen soft; abdomen nontender and no hepatosplenomegaly Results & Data Laboratory Results Laboratory Results - last 24 hr 09/15/18 09/15/18 09/15/18 11:45 16:51 16:59 WBC RBC Hgb Hct MCV MCH MCHC RDW Std Deviation RDW Coeff of Vero Plt Count MPV Immature Gran % (Auto) Neut % (Auto) Lymph % (Auto) [place] % (Auto) Eos % (Auto) Baso % (Auto) Immature Gran # (Auto) Neut # (Auto) Lymph # (Auto) [place] # (Auto) Eos # (Auto) Baso # (Auto) PT 12.6 H INR 1.3 H Sodium Potassium Chloride Carbon Dioxide Anion Gap BUN Creatinine Est Cr Clr Drug Dosing Est GFR ( Amer) Est GFR (Non-Af Amer) BUN/Creatinine Ratio Glucose POC Glucose 101 H 117 H Calcium Magnesium 09/15/18 09/16/18 09/16/18 20:54 05:32 05:32 WBC 5.38 RBC 3.74 L Hgb 10.1 L Hct 32.6 L MCV 87.2 MCH 27.0 MCHC 31.0 L RDW Std Deviation 61.3 H RDW Coeff of Vero 19.4 H Plt Count 204 MPV 11.4 H Immature Gran % (Auto) 0.2 Neut % (Auto) 61.2 Lymph % (Auto) 18.0 [place] % (Auto) 18.4 Eos % (Auto) 2.0 Baso % (Auto) 0.2 Immature Gran # (Auto) 0.01 Neut # (Auto) 3.29 Lymph # (Auto) 0.97 L [place] # (Auto) 0.99 H Eos # (Auto) 0.11 Baso # (Auto) 0.01 PT 12.3 H INR 1.2 H Sodium Potassium Chloride Carbon Dioxide Anion Gap BUN Creatinine Est Cr Clr Drug Dosing Est GFR ( Amer) Est GFR (Non-Af Amer) BUN/Creatinine Ratio Glucose POC Glucose 118 H Calcium Magnesium 09/16/18 09/16/18 05:32 07:35 WBC RBC Hgb Hct MCV MCH MCHC RDW Std Deviation RDW Coeff of Vero Plt Count MPV Immature Gran % (Auto) Neut % (Auto) Lymph % (Auto) [place] % (Auto) Eos % (Auto) Baso % (Auto) Immature Gran # (Auto) Neut # (Auto) Lymph # (Auto) [place] # (Auto) Eos # (Auto) Baso # (Auto) PT INR Sodium 135 L Potassium 3.6 Chloride 93 L Carbon Dioxide 36 H Anion Gap 6.0 BUN 15 Creatinine 1.01 Est Cr Clr Drug Dosing 43.1 Est GFR ( Amer) 76.1 Est GFR (Non-Af Amer) 65.6 BUN/Creatinine Ratio 14.4 Glucose 83 POC Glucose 93 Calcium 8.0 L Magnesium 1.6 L
[2018-09-16] MEDS ORDERED: POTASSIUM CHLORIDE 20 MEQ TABCR PO ONE (10:10)
[2018-09-16] MEDS: ISOSORBIDE DINITRATE 10 MG TAB PO SCH (12:30)
[2018-09-16] MEDS ORDERED: BISACODYL 10 MG SUPP PR STA (13:53)
--- NOTE | 2018-09-16 14:03 | Hospitalist Progress Note ---
Date of Service September 16, 2018 Assessment & Plan (1) Systolic congestive heart failure: Has history of systolic heart failure Presented with acute on chronic systolic heart failure Chest x-ray suggestive of CHF and no evidence of any pneumonia Started with intravenous Lasix 40 mg twice daily We will continue with oxygen to maintain saturation ECHO: Concentric left ventricular hypertrophy with global hypokinesis and tenderness of gold, EF 15-20%, RV dilatation with apical thrombus. Appreciate cardiology input and recommendation Clinically much better today following diuresis Denies any more shortness of breath Continue intravenous diuretics 1 Small dose of Ismo added Will hydralazine from tomorrow (2) Atrial fibrillation: Rate is controlled now Has been on amiodarone Continue amiodarone for now Rate is controlled Restart low-dose Coumadin Has high risk of bleeding with history of GI bleeding in the past We will discuss with the daughter Discussed with the daughter and the son Has been taking Coumadin since yesterday (3) DM2 (diabetes mellitus, type 2): Hold metformin Sliding scale insulin coverage Hemoglobin A1c (4) HTN (hypertension): Blood pressure seems to be controlled Continue current antibiotic (5) Hypothyroid: Continue replacement (6) Pancreatic cancer: History of pancreatic cancer and also history of gastric cancer cancer, oral cancer and lymphoma Status post multiple surgery in abdomen with scars No evidence of any incisional hernia at this time (7) DVT prophylaxis: Heparin subcu CODE STATUS; he is a DNR Subjective 88-year-old male with significant past medical history of paroxysmal atrial fibrillation on amiodarone, ischemic cardiomyopathy, chronic systolic heart failure, hypothyroidism, history of CVA and history of multiple cancers including enteric cancer, gastric cancer and oral cancer and also lymphoma was admitted with increasing shortness of breath and edema for the last few days. Noted to have acute on chronic CHF on admission. 09/15 Patient was seen and examined in telemetry Please not better with intravenous Lasix and diuresis Echo noted to have a right ventricular thrombus Denies any symptoms today 09/16 Patient was seen and examined in telemetry unit in presence of the son Has been feeling a lot better Complains of bowel has not moved Shortness of breath is much improved Respiratory: + cough, + chest congestion and + dyspnea Gastrointestinal: + bloating, + early satiety and + nausea; no vomiting Musculoskeletal: + muscle weakness Physical Exam 2 Vital Signs (Past 24 Hours): Last Vital Signs Temp 36.8 C 09/16/18 11:28 Pulse 65 09/16/18 11:28 Resp 18 09/16/18 11:28 BP 110/60 09/16/18 11:28 Pulse Ox 95 09/16/18 11:28 Constitutional: WD/WN, vitals as above (No apparent distress at rest) Eyes: PERRL, conjunctivae normal, anicteric sclerae Neck: trachea midline, no thyromegaly Respiratory: normal respiratory effort Auscultation: + diminished lung sounds and + crackles (At the bases-much improved); no wheezes Cardiovascular: Rate/Rhythm: regular rate; + abnormal rhythm Heart Sounds: normal S1, normal S2 and + murmur (2/6 ejection systolic murmur over precordium ) Gastrointestinal (Abdomen): Inspection/Auscultation: normal bowel sounds, + abdominal edema (Around lower abdomen and bilateral flank area) and + abdominal surgical incision Percussion/Palpation: abdomen soft Neurologic: moves all extremities and awake Results & Data Laboratory Results Short CBC 09/16/18 Range/Units 05:32 WBC 5.38 (4.8-10.8) K/uL Hgb 10.1 L (14.0-18.0) g/dL Hct 32.6 L (42-52) % Plt Count 204 (130-400) K/uL BMP 09/16/18 05:32 Sodium 135 L Potassium 3.6 Chloride 93 L Carbon Dioxide 36 H BUN 15 Creatinine 1.01 Glucose 83 Calcium 8.0 L Medications Administered Current Inpatient Medications Acetaminophen (Tylenol) 650 mg PO Q4H PRN PRN Reason: Pain or Fever Stop: 10/14/18 18:16 Albuterol (Ventolin Hfa) 1 puffs INH Q6H PRN PRN Reason: shortness of breath or wheezing Stop: 10/14/18 19:59 Amiodarone HCl (Cordarone) 100 mg PO QAM [facility] Stop: 10/15/18 08:59 Last Admin: 09/16/18 08:16 Dose: 100 mg Citalopram Hydrobromide (Celexa) 10 mg PO QAM [facility] Stop: 10/15/18 08:59 Last Admin: 09/16/18 08:16 Dose: 10 mg Dextrose (Dextrose 50%) 25 - 50 ml IV UD PRN; Protocol PRN Reason: Hypoglycemia Protocol Stop: 10/14/18 20:09 Docusate Sodium (Colace) 100 mg PO BID PRN PRN Reason: Constipation Stop: 10/14/18 19:59 Ferrous Sulfate (Feosol) 325 mg PO QAM [facility] Stop: 10/15/18 08:59 Last Admin: 09/16/18 08:17 Dose: 325 mg Finasteride (Proscar) 5 mg PO DAILY [facility] Stop: 10/15/18 08:59 Last Admin: 09/16/18 08:18 Dose: 5 mg Glucagon (Glucagen) 1 mg IM UD PRN; Protocol PRN Reason: Hypoglycemia Protocol Stop: 10/14/18 20:09 Glucose (Glucose 40%) 15 - 30 gm PO UD PRN; Protocol PRN Reason: Hypoglycemia Protocol Stop: 10/14/18 20:09 Glucose (Dex4 Glucose) 4 - 8 tabs PO UD PRN; Protocol PRN Reason: Hypoglycemia Protocol Stop: 10/14/18 20:09 Heparin Sodium (Porcine) (Heparin Sodium (Porcine)) 5,000 units SQ Q12 [facility] Stop: 10/14/18 20:59 Last Admin: 09/16/18 08:20 Dose: 5,000 units Furosemide 40 mg/ Syringe 4 mls @ 4 mls/min IV BID17 [facility] Stop: 10/15/18 08:59 Last Admin: 09/16/18 08:18 Dose: 4 mls/min Insulin Aspart (Novolog Flexpen) 0 units SC ACHS [facility] Stop: 10/14/18 20:59 Last Admin: 09/16/18 12:32 Dose: Not Given Isosorbide Dinitrate (Isordil) 10 mg PO BID@0700,1200 [facility] Stop: 10/16/18 11:59 Last Admin: 09/16/18 12:30 Dose: 10 mg Levothyroxine Sodium (Synthroid) 100 mcg PO DAILYBB [facility] Stop: 10/15/18 06:29 Last Admin: 09/16/18 06:02 Dose: 100 mcg Magnesium Oxide (Mag-Ox) 400 mg PO QPM [facility] Stop: 10/14/18 20:59 Last Admin: 09/15/18 21:34 Dose: 400 mg Metoclopramide HCl (Reglan) 5 mg PO AC [facility] Stop: 10/15/18 07:29 Last Admin: 09/16/18 10:55 Dose: 5 mg Miscellaneous (Carbohydrates For Hypoglycemia) 15 - 30 gm PO UD PRN PRN Reason: Hypoglycemia Treatment Stop: 10/14/18 20:09 Nitroglycerin (Nitrostat) 0.4 mg SL UD PRN PRN Reason: Angina Stop: 10/14/18 19:59 Pantoprazole Sodium (Protonix) 40 mg PO DAILY [facility] Stop: 10/15/18 08:59 Last Admin: 09/16/18 08:17 Dose: 40 mg Rosuvastatin Calcium (Crestor) 5 mg PO MoWeFr@0900 [facility] Stop: 10/16/18 08:59 Last Admin: 09/16/18 08:17 Dose: 5 mg Sennosides (Senokot) 8.6 mg PO DAILY PRN PRN Reason: Constipation Stop: 10/14/18 19:59 Tamsulosin HCl (Flomax) 0.4 mg PO HS [facility] Stop: 10/14/18 20:59 Last Admin: 09/15/18 21:34 Dose: 0.4 mg Tramadol HCl (Ultram) 50 mg PO Q6H PRN PRN Reason: Pain Stop: 10/14/18 19:59 Warfarin Sodium (Coumadin) 2.5 mg PO DAILY@1600 [facility] Stop: 10/15/18 17:59 Last Admin: 09/15/18 18:25 Dose: 2.5 mg
[2018-09-16] MEDS ORDERED: Nursing to Pharmacy Communication ONE (16:52)
[2018-09-16] MEDS: WARFARIN SOD 2.5 MG TAB PO SCH (16:55)
[2018-09-16] MEDS: PSYLLIUM 58.6% POWDER PACKET PO SCH (17:43)
[2018-09-16] MEDS: TAMSULOSIN HCL 0.4 MG CAP PO SCH (21:21)
[2018-09-16] MEDS: MAGNESIUM OXIDE 400 MG TAB PO SCH (21:21)
[2018-09-17] MEDS: LEVOTHYROXINE SODIUM 100 MCG TABLET PO SCH (06:13)
[2018-09-17] MEDS: ISOSORBIDE DINITRATE 10 MG TAB PO SCH ×2 (06:16→11:34)
[2018-09-17 07:31] LABS: INR 1.2 (0.9-1.1); Prothrombin Time 11.6 Seconds (9.0-12.0)
[2018-09-17 07:37] LABS: Estimated Average Glucose 140 mg/dl
[2018-09-17 08:00] LABS: BUN Creatinine Ratio 13.3 (10-20); Calcium 8.3 mg/dl (8.5-10.1); Creatinine Clr Calc Pharmacy 34.2 ml/min; Est GFR (African American) 69.4; Est GFR (Non-African American) 59.9; Magnesium 1.7 mg/dl (1.8-2.4); Potassium 3.9 mmol/L (3.5-5.1)
[2018-09-17] MEDS: AMIODARONE 200 MG TAB PO SCH (08:10)
[2018-09-17] MEDS: FERROUS SULFATE 325 MG TAB PO SCH (08:11)
[2018-09-17] MEDS: PANTOprazole 40 MG TAB PO SCH (08:11)
[2018-09-17] MEDS: CITALOPRAM 20 MG TAB PO SCH (08:11)
[2018-09-17] MEDS: METOCLOPRAMIDE HCL 5 MG TABLET PO SCH ×3 (08:11→16:37)
[2018-09-17] MEDS: FINASTERIDE 5 MG TAB PO SCH (08:12)
[2018-09-17] MEDS: PSYLLIUM 58.6% POWDER PACKET PO SCH (08:12)
[2018-09-17] MEDS: HEPARIN SOD 5,000 UNIT/0.5 ML VIAL SQ SCH ×2 (08:12→20:47)
[2018-09-17] MEDS: INSULIN ASPART 100 UNITS/ML 3 ML PEN SC SCH ×4 (08:14→20:47)
[2018-09-17] MEDS: FUROSEMIDE 40 MG TAB PO SCH (11:33)
--- NOTE | 2018-09-17 11:38 | Hospitalist Progress Note ---
Date of Service September 17, 2018 Assessment & Plan (1) Systolic congestive heart failure: Has history of systolic heart failure Presented with acute on chronic systolic heart failure Chest x-ray suggestive of CHF and no evidence of any pneumonia Started with intravenous Lasix 40 mg twice daily We will continue with oxygen to maintain saturation ECHO: Concentric left ventricular hypertrophy with global hypokinesis and tenderness of gold, EF 15-20%, RV dilatation with apical thrombus. Appreciate cardiology input and recommendation Clinically much better today following diuresis Denies any more shortness of breath Continue intravenous diuretics Small dose of Ismo added Will start with oral Lasix of 40 mg daily Hydralazine 10 mg twice daily has been added Likely be discharged on Wednesday (2) Atrial fibrillation: Rate is controlled now Has been on amiodarone Continue amiodarone for now Rate is controlled Restart low-dose Coumadin Has high risk of bleeding with history of GI bleeding in the past We will discuss with the daughter Discussed with the daughter and the son Has been taking Coumadin since yesterday INR is still not therapeutic Will go slow with history of GI bleed (3) DM2 (diabetes mellitus, type 2): Hold metformin Sliding scale insulin coverage Hemoglobin A1c-6.5 slightly improved from 6.9 in June 2018 (4) HTN (hypertension): Blood pressure seems to be controlled Continue current medication Blood pressure is controlled systolic around 110 (5) Hypothyroid: Continue replacement (6) Pancreatic cancer: History of pancreatic cancer and also history of gastric cancer cancer, oral cancer and lymphoma Status post multiple surgery in abdomen with scars No evidence of any incisional hernia at this time (7) DVT prophylaxis: Heparin subcu Coumadin added CODE STATUS; he is a DNR Subjective 88-year-old male with significant past medical history of paroxysmal atrial fibrillation on amiodarone, ischemic cardiomyopathy, chronic systolic heart failure, hypothyroidism, history of CVA and history of multiple cancers including enteric cancer, gastric cancer and oral cancer and also lymphoma was admitted with increasing shortness of breath and edema for the last few days. Noted to have acute on chronic CHF on admission. 09/15 Patient was seen and examined in telemetry Please not better with intravenous Lasix and diuresis Echo noted to have a right ventricular thrombus Denies any symptoms today 09/16 Patient was seen and examined in telemetry unit in presence of the son Has been feeling a lot better Complains of bowel has not moved Shortness of breath is much improved 09/17 Patient was seen and examined in telemetry unit He has been feeling a lot better Denies any shortness of breath and/or palpitation Bowel is moving Respiratory: + cough, + chest congestion and + dyspnea Gastrointestinal: + bloating, + early satiety and + nausea; no vomiting Musculoskeletal: + muscle weakness Physical Exam 2 Vital Signs (Past 24 Hours): Last Vital Signs Temp 36.6 C 09/17/18 07:23 Pulse 67 09/17/18 07:23 Resp 16 09/17/18 07:23 BP 110/59 L 09/17/18 07:23 Pulse Ox 96 09/17/18 07:23 Constitutional: WD/WN, vitals as above (No apparent distress at rest) Eyes: PERRL, conjunctivae normal, anicteric sclerae Neck: trachea midline, no thyromegaly Respiratory: normal respiratory effort and + respiratory distress (Minimal respiratory) Auscultation: + diminished lung sounds and + crackles (At the bases-much improved); no wheezes Cardiovascular: Rate/Rhythm: regular rate; + abnormal rhythm Heart Sounds: normal S1, normal S2 and + murmur (2/6 ejection systolic murmur over precordium ) Gastrointestinal (Abdomen): Inspection/Auscultation: normal bowel sounds, + abdominal edema (Around lower abdomen and bilateral flank area) and + abdominal surgical incision Percussion/Palpation: abdomen soft Neurologic: moves all extremities and awake Results & Data Laboratory Results [facility] 09/17/18 07:05 Sodium 134 L Potassium 3.9 Chloride 89 L Carbon Dioxide 38 H BUN 15 Creatinine 1.09 Glucose 97 Calcium 8.3 L Medications Administered Current Inpatient Medications Acetaminophen (Tylenol) 650 mg PO Q4H PRN PRN Reason: Pain or Fever Stop: 10/14/18 18:16 Albuterol (Ventolin Hfa) 1 puffs INH Q6H PRN PRN Reason: shortness of breath or wheezing Stop: 10/14/18 19:59 [facility] ([facility]) [facility] [facility] [place] Stop: 10/15/18 08:59 Last Admin: 09/17/18 08:10 Dose: 100 mg Citalopram Hydrobromide (Celexa) [facility] [place] [facility] [place] Stop: 10/15/18 08:59 Last Admin: 12/29/18 08:11 Dose: 10 mg Dextrose (Dextrose 50%) 25 - 50 ml IV UD PRN; Protocol PRN Reason: Hypoglycemia Protocol Stop: 10/14/18 20:09 Docusate Sodium (Colace) 100 mg PO BID PRN PRN Reason: Constipation Stop: 10/14/18 19:59 Ferrous Sulfate (Feosol) 325 mg PO QAM [facility] Stop: 10/15/18 08:59 Last Admin: 09/17/18 08:11 Dose: 325 mg Finasteride (Proscar) 5 mg PO DAILY [facility] Stop: 10/15/18 08:59 Last Admin: 09/17/18 08:12 Dose: 5 mg Furosemide (Lasix) 40 mg PO QAM [facility] Stop: 10/17/18 10:29 Last Admin: 09/17/18 11:33 Dose: 40 mg Glucagon (Glucagen) 1 mg IM UD PRN; Protocol PRN Reason: Hypoglycemia Protocol Stop: 10/14/18 20:09 Glucose (Glucose 40%) 15 - 30 gm PO UD PRN; Protocol PRN Reason: Hypoglycemia Protocol Stop: 10/14/18 20:09 Glucose (Dex4 Glucose) 4 - 8 tabs PO UD PRN; Protocol PRN Reason: Hypoglycemia Protocol Stop: 10/14/18 20:09 Heparin Sodium (Porcine) (Heparin Sodium (Porcine)) 5,000 units SQ Q12 [facility] Stop: 10/14/18 20:59 Last Admin: 09/17/18 08:12 Dose: 5,000 units Hydralazine HCl (Apresoline) 10 mg PO BID [facility] Stop: 10/17/18 20:59 Insulin Aspart (Novolog Flexpen) 0 units SC ACHS [facility] Stop: 10/14/18 20:59 Last Admin: 09/17/18 08:14 Dose: Not Given Isosorbide Dinitrate (Isordil) 10 mg PO BID@0700,1200 [facility] Stop: 10/16/18 11:59 Last Admin: 09/17/18 11:34 Dose: 10 mg Levothyroxine Sodium (Synthroid) 100 mcg PO DAILYBB [facility] Stop: 10/15/18 06:29 Last Admin: 09/17/18 06:13 Dose: 100 mcg Magnesium Oxide (Mag-Ox) 400 mg PO QPM [facility] Stop: 10/14/18 20:59 Last Admin: 09/16/18 21:21 Dose: 400 mg Metoclopramide HCl (Reglan) 5 mg PO AC [facility] Stop: 10/15/18 07:29 Last Admin: 09/17/18 08:11 Dose: 5 mg Miscellaneous (Carbohydrates For Hypoglycemia) 15 - 30 gm PO UD PRN PRN Reason: Hypoglycemia Treatment Stop: 10/14/18 20:09 Nitroglycerin (Nitrostat) 0.4 mg SL UD PRN PRN Reason: Angina Stop: 10/14/18 19:59 Pantoprazole Sodium (Protonix) 40 mg PO DAILY [facility] Stop: 10/15/18 08:59 Last Admin: 09/17/18 08:11 Dose: 40 mg Psyllium Hydrophilic Mucilloid (Metamucil) 1 pkt PO QAM [facility] Stop: 10/16/18 16:29 Last Admin: 09/17/18 08:12 Dose: 1 pkt Rosuvastatin Calcium (Crestor) 5 mg PO MoWeFr@0900 [facility] Stop: 10/16/18 08:59 Last Admin: 09/16/18 08:17 Dose: 5 mg Sennosides (Senokot) 8.6 mg PO DAILY PRN PRN Reason: Constipation Stop: 10/14/18 19:59 Tamsulosin HCl (Flomax) 0.4 mg PO HS [facility] Stop: 10/14/18 20:59 Last Admin: 09/16/18 21:21 Dose: 0.4 mg Tramadol HCl (Ultram) 50 mg PO Q6H PRN PRN Reason: Pain Stop: 10/14/18 19:59 Warfarin Sodium (Coumadin) 2.5 mg PO DAILY@1600 [facility] Stop: 10/15/18 17:59 Last Admin: 09/16/18 16:55 Dose: 2.5 mg
--- NOTE | 2018-09-17 11:54 | Cardiology Progress Note ---
Date of Service September 17, 2018 Assessment & Plan (1) Acute on chronic systolic (congestive) heart failure: Patient has had brisk response to IV diuretics, switch to oral furosemide today (2) Cardiomyopathy, ischemic: We will attempt to optimize medical therapies. Low blood pressures in past adverse reaction to DONG and ARB therapies has limited treatment Will initiate isosorbide 10 mg twice per day follow blood pressure, consider addition of hydralazine will begin this evening (3) Paroxysmal atrial fibrillation: Patient in sinus rhythm we will continue low-dose amiodarone. Warfarin has been begun for thrombus right ventricle, chronic atrial fibrillation Will supplement potassium today Subjective Patient seen and examined, chart medications telemetry reviewed. Patient less dyspneic since diuresis. Denies chest pain tachypalpitations Physical Exam 2 Vital Signs (Past 24 Hours): Last Vital Signs Temp 36.5 C 09/17/18 11:41 Pulse 62 09/17/18 11:41 Resp 16 09/17/18 11:41 BP 101/45 L 09/17/18 11:41 Pulse Ox 95 09/17/18 11:41 Constitutional: + thin; no acute distress Respiratory: Auscultation: lungs clear to auscultation bilaterally Cardiovascular: Rate/Rhythm: regular rate and regular rhythm Heart Sounds: normal S1; no gallop Vessels: no JVD Extremities: no edema Gastrointestinal (Abdomen): Percussion/Palpation: abdomen soft; abdomen nontender and no hepatosplenomegaly Results & Data Laboratory Results Laboratory Results - last 24 hr 09/16/18 09/16/18 09/17/18 16:45 20:51 07:05 PT INR Sodium 134 L Potassium 3.9 Chloride 89 L Carbon Dioxide 38 H Anion Gap 7.0 BUN 15 Creatinine 1.09 Est Cr Clr Drug Dosing 34.2 Est GFR ( Amer) 69.4 Est GFR (Non-Af Amer) 59.9 BUN/Creatinine Ratio 13.3 Glucose 97 POC Glucose 113 H 163 H Estimat Average Glucose Hemoglobin A1c Calcium 8.3 L Magnesium 1.7 L 09/17/18 09/17/18 09/17/18 07:05 07:05 07:42 PT 11.6 INR 1.2 H Sodium Potassium Chloride Carbon Dioxide Anion Gap BUN Creatinine Est Cr Clr Drug Dosing Est GFR ( Amer) Est GFR (Non-Af Amer) BUN/Creatinine Ratio Glucose POC Glucose 111 H Estimat Average Glucose 140 Hemoglobin A1c 6.5 H Calcium Magnesium
[2018-09-17] MEDS: WARFARIN SOD 2.5 MG TAB PO SCH (16:37)
[2018-09-17] MEDS: TAMSULOSIN HCL 0.4 MG CAP PO SCH (20:46)
[2018-09-17] MEDS: MAGNESIUM OXIDE 400 MG TAB PO SCH (20:46)
[2018-09-17] MEDS: HydrALAZINE 10 MG TAB PO SCH (20:46)
[2018-09-18] MEDS: LEVOTHYROXINE SODIUM 100 MCG TABLET PO SCH (05:58)
[2018-09-18] MEDS: ISOSORBIDE DINITRATE 10 MG TAB PO SCH ×2 (06:36→12:47)
[2018-09-18 07:13] LABS: INR 1.1 (0.9-1.1); Prothrombin Time 11.1 Seconds (9.0-12.0)
[2018-09-18 07:42] LABS: BUN Creatinine Ratio 13.6 (10-20); Calcium 8.3 mg/dl (8.5-10.1); Est GFR (African American) 72.6; Est GFR (Non-African American) 62.6; Potassium 3.9 mmol/L (3.5-5.1)
[2018-09-18] MEDS: INSULIN ASPART 100 UNITS/ML 3 ML PEN SC SCH ×4 (08:12→20:53)
[2018-09-18] MEDS: HydrALAZINE 10 MG TAB PO SCH (08:13)
[2018-09-18] MEDS: FINASTERIDE 5 MG TAB PO SCH (08:13)
[2018-09-18] MEDS: CITALOPRAM 20 MG TAB PO SCH (08:14)
[2018-09-18] MEDS: FERROUS SULFATE 325 MG TAB PO SCH (08:14)
[2018-09-18] MEDS: FUROSEMIDE 40 MG TAB PO SCH (08:14)
[2018-09-18] MEDS: PANTOprazole 40 MG TAB PO SCH (08:15)
[2018-09-18] MEDS: METOCLOPRAMIDE HCL 5 MG TABLET PO SCH ×3 (08:15→17:03)
[2018-09-18] MEDS: PSYLLIUM 58.6% POWDER PACKET PO SCH (08:16)
[2018-09-18] MEDS: HEPARIN SOD 5,000 UNIT/0.5 ML VIAL SQ SCH ×2 (08:16→20:53)
[2018-09-18] MEDS: AMIODARONE 200 MG TAB PO SCH (08:17)
--- NOTE | 2018-09-18 10:48 | Hospitalist Progress Note ---
Date of Service September 18, 2018 Assessment & Plan (1) Systolic congestive heart failure: Has history of systolic heart failure Presented with acute on chronic systolic heart failure Chest x-ray suggestive of CHF and no evidence of any pneumonia Started with intravenous Lasix 40 mg twice daily We will continue with oxygen to maintain saturation ECHO: Concentric left ventricular hypertrophy with global hypokinesis and tenderness of gold, EF 15-20%, RV dilatation with apical thrombus. Appreciate cardiology input and recommendation Clinically much better today following diuresis Denies any more shortness of breath Continue intravenous diuretics Small dose of Ismo added Will start with oral Lasix of 40 mg daily Hydralazine 10 mg twice daily has been added Has had episode of low blood pressure this morning without any symptoms Hydralazine has been on hold Denies any more shortness of breath (2) Atrial fibrillation: Rate is controlled now Has been on amiodarone Continue amiodarone for now Rate is controlled Restart low-dose Coumadin Has high risk of bleeding with history of GI bleeding in the past We will discuss with the daughter Discussed with the daughter and the son Has been taking Coumadin since yesterday INR is still not therapeutic Will go slow with history of GI bleed INR is 1.1 today Will increase Coumadin to 5 mg daily (3) DM2 (diabetes mellitus, type 2): Hold metformin Sliding scale insulin coverage Hemoglobin A1c-6.5 slightly improved from 6.9 in June 2018 (4) HTN (hypertension): Blood pressure seems to be controlled Continue current medication Blood pressure is controlled systolic around 110 Low blood pressure this morning Will hold hydralazine (5) Hypothyroid: Continue replacement (6) Pancreatic cancer: History of pancreatic cancer and also history of gastric cancer cancer, oral cancer and lymphoma Status post multiple surgery in abdomen with scars No evidence of any incisional hernia at this time (7) DVT prophylaxis: Heparin subcu Coumadin added CODE STATUS; he is a DNR Subjective 88-year-old male with significant past medical history of paroxysmal atrial fibrillation on amiodarone, ischemic cardiomyopathy, chronic systolic heart failure, hypothyroidism, history of CVA and history of multiple cancers including enteric cancer, gastric cancer and oral cancer and also lymphoma was admitted with increasing shortness of breath and edema for the last few days. Noted to have acute on chronic CHF on admission. 09/15 Patient was seen and examined in telemetry Please not better with intravenous Lasix and diuresis Echo noted to have a right ventricular thrombus Denies any symptoms today 09/16 Patient was seen and examined in telemetry unit in presence of the son Has been feeling a lot better Complains of bowel has not moved Shortness of breath is much improved 09/17 Patient was seen and examined in telemetry unit He has been feeling a lot better Denies any shortness of breath and/or palpitation Bowel is moving 09/18 The patient was seen and examined in telemetry unit He was noted to have very low blood pressure this morning Hydralazine has been on hold Patient denies any symptoms during the examination Respiratory: + cough, + chest congestion and + dyspnea Gastrointestinal: + bloating, + early satiety and + nausea; no vomiting Musculoskeletal: + muscle weakness Physical Exam 2 Vital Signs (Past 24 Hours): Last Vital Signs Temp 36.4 C L 09/18/18 07:46 Pulse 72 09/18/18 07:46 Resp 18 09/18/18 07:46 BP 88/45 L 09/18/18 07:46 Pulse Ox 89 L 09/18/18 07:46 Constitutional: WD/WN, vitals as above (No apparent distress at rest) Eyes: PERRL, conjunctivae normal, anicteric sclerae Neck: trachea midline, no thyromegaly Respiratory: normal respiratory effort Auscultation: + diminished lung sounds and + crackles (Very minimal at the base) Cardiovascular: Rate/Rhythm: regular rate; + abnormal rhythm Heart Sounds: normal S1, normal S2 and + murmur (2/6 ejection systolic murmur over precordium ) Gastrointestinal (Abdomen): Inspection/Auscultation: normal bowel sounds, + abdominal edema (Around lower abdomen and bilateral flank area) and + abdominal surgical incision Percussion/Palpation: abdomen soft Neurologic: moves all extremities and awake Results & Data Laboratory Results [facility] 09/18/18 06:44 Sodium 134 L Potassium 3.9 Chloride 93 L Carbon Dioxide 37 H BUN 14 Creatinine 1.05 Glucose 95 Calcium 8.3 L Medications Administered Current Inpatient Medications Acetaminophen (Tylenol) 650 mg PO Q4H PRN PRN Reason: Pain or Fever Stop: 10/14/18 18:16 Albuterol (Ventolin Hfa) 1 puffs INH Q6H PRN PRN Reason: shortness of breath or wheezing Stop: 10/14/18 19:59 Amiodarone HCl (Cordarone) 100 mg PO QAM [facility] Stop: 10/15/18 08:59 Last Admin: 09/18/18 08:17 Dose: 100 mg Citalopram Hydrobromide (Celexa) 10 mg PO QAM [facility] Stop: 10/15/18 08:59 Last Admin: 09/18/18 08:14 Dose: 10 mg Dextrose (Dextrose 50%) 25 - 50 ml IV UD PRN; Protocol PRN Reason: Hypoglycemia Protocol Stop: 10/14/18 20:09 Docusate Sodium (Colace) 100 mg PO BID PRN PRN Reason: Constipation Stop: 10/14/18 19:59 Ferrous Sulfate (Feosol) 325 mg PO QAM [facility] Stop: 10/15/18 08:59 Last Admin: 09/18/18 08:14 Dose: 325 mg Finasteride (Proscar) 5 mg PO DAILY [facility] Stop: 10/15/18 08:59 Last Admin: 09/18/18 08:13 Dose: 5 mg Furosemide (Lasix) 40 mg PO QAM [facility] Stop: 10/17/18 10:29 Last Admin: 09/18/18 08:14 Dose: 40 mg Glucagon (Glucagen) 1 mg IM UD PRN; Protocol PRN Reason: Hypoglycemia Protocol Stop: 10/14/18 20:09 Glucose (Glucose 40%) 15 - 30 gm PO UD PRN; Protocol PRN Reason: Hypoglycemia Protocol Stop: 10/14/18 20:09 Glucose (Dex4 Glucose) 4 - 8 tabs PO UD PRN; Protocol PRN Reason: Hypoglycemia Protocol Stop: 10/14/18 20:09 Heparin Sodium (Porcine) (Heparin Sodium (Porcine)) 5,000 units SQ Q12 TABBY Stop: 10/14/18 20:59 Last Admin: 09/18/18 08:16 Dose: 5,000 units Hydralazine HCl (Apresoline) 10 mg PO BID TABBY Stop: 10/17/18 20:59 Last Admin: 09/18/18 08:13 Dose: Not Given Insulin Aspart (Novolog Flexpen) 0 units SC ACHS TABBY Stop: 10/14/18 20:59 Last Admin: 09/18/18 08:12 Dose: Not Given Isosorbide Dinitrate (Isordil) 10 mg PO BID@0700,1200 [facility] Stop: 10/16/18 11:59 Last Admin: 09/18/18 06:36 Dose: 10 mg Levothyroxine Sodium (Synthroid) 100 mcg PO DAILYBB [facility] Stop: 10/15/18 06:29 Last Admin: 09/18/18 05:58 Dose: 100 mcg Magnesium Oxide (Mag-Ox) 400 mg PO QPM [facility] Stop: 10/14/18 20:59 Last Admin: 09/17/18 20:46 Dose: 400 mg Metoclopramide HCl (Reglan) 5 mg PO AC [facility] Stop: 10/15/18 07:29 Last Admin: 09/18/18 08:15 Dose: 5 mg Miscellaneous (Carbohydrates For Hypoglycemia) 15 - 30 gm PO UD PRN PRN Reason: Hypoglycemia Treatment Stop: 10/14/18 20:09 Nitroglycerin (Nitrostat) 0.4 mg SL UD PRN PRN Reason: Angina Stop: 10/14/18 19:59 Pantoprazole Sodium (Protonix) 40 mg PO DAILY [facility] Stop: 10/15/18 08:59 Last Admin: 09/18/18 08:15 Dose: 40 mg Psyllium Hydrophilic Mucilloid (Metamucil) 1 pkt PO QAM [facility] Stop: 10/16/18 16:29 Last Admin: 09/18/18 08:16 Dose: 1 pkt Rosuvastatin Calcium (Crestor) 5 mg PO MoWeFr@0900 [facility] Stop: 10/16/18 08:59 Last Admin: 09/16/18 08:17 Dose: 5 mg Sennosides (Senokot) 8.6 mg PO DAILY PRN PRN Reason: Constipation Stop: 10/14/18 19:59 Tamsulosin HCl (Flomax) 0.4 mg PO HS [facility] Stop: 10/14/18 20:59 Last Admin: 09/17/18 20:46 Dose: 0.4 mg Tramadol HCl (Ultram) 50 mg PO Q6H PRN PRN Reason: Pain Stop: 10/14/18 19:59 Warfarin Sodium (Coumadin) 2.5 mg PO DAILY@1600 [facility] Stop: 10/15/18 17:59 Last Admin: 09/17/18 16:37 Dose: 2.5 mg
--- NOTE | 2018-09-18 10:57 | Cardiology Progress Note ---
Date of Service September 18, 2018 Assessment & Plan (1) Acute on chronic systolic (congestive) heart failure: Patient has responded to diuretic therapy now on orals will reduce furosemide to 20 mg/day (2) Cardiomyopathy, ischemic: We will attempt to optimize medical therapies. Low blood pressures in past adverse reaction to DONG and ARB therapies has limited treatment Will continue isosorbide 10 mg twice per day follow blood pressure, does not appear hydralazine will be tolerated (3) Paroxysmal atrial fibrillation: Patient in sinus rhythm we will continue low-dose amiodarone. Warfarin has been begun for thrombus right ventricle, chronic atrial fibrillation with elevated risk of bleeding noted and discussed Subjective Patient seen and examined, chart medications telemetry reviewed. Patient has no specific complaints. Denies chest pain tachypalpitations Blood pressures were low this morning though asymptomatic Physical Exam 2 Vital Signs (Past 24 Hours): Last Vital Signs Temp 36.4 C L 09/18/18 07:46 Pulse 72 09/18/18 07:46 Resp 18 09/18/18 07:46 BP 88/45 L 09/18/18 07:46 Pulse Ox 89 L 09/18/18 07:46 Constitutional: + thin; no acute distress Respiratory: Auscultation: lungs clear to auscultation bilaterally Cardiovascular: Rate/Rhythm: regular rate and regular rhythm Heart Sounds: normal S1; no gallop Vessels: no JVD Extremities: no edema Gastrointestinal (Abdomen): Percussion/Palpation: abdomen soft; abdomen nontender and no hepatosplenomegaly Results & Data Laboratory Results 09/18/18 09/18/18 09/18/18 Range/Units 07:14 06:44 06:44 PT 11.1 (9.0-12.0) Seconds INR 1.1 (0.9-1.1) Sodium 134 L (136-145) mmol/L Potassium 3.9 (3.5-5.1) mmol/L Chloride 93 L (98-107) mmol/L Carbon Dioxide 37 H (21-32) mmol/L Anion Gap 4.0 (3-11) BUN 14 (7-18) mg/dl Creatinine 1.05 (0.6-1.4) mg/dl Est Cr Clr Drug Dosing 34.0 ml/min Est GFR ( Amer) 72.6 Est GFR (Non-Af Amer) 62.6 BUN/Creatinine Ratio 13.6 (10-20) Glucose 95 (70-99) mg/dl POC Glucose 94 (70-99) Calcium 8.3 L (8.5-10.1) mg/dl 09/17/18 09/17/18 09/17/18 Range/Units 20:08 16:40 11:53 PT (9.0-12.0) Seconds INR (0.9-1.1) Sodium (136-145) mmol/L Potassium (3.5-5.1) mmol/L Chloride (98-107) mmol/L Carbon Dioxide (21-32) mmol/L Anion Gap (3-11) BUN (7-18) mg/dl Creatinine (0.6-1.4) mg/dl Est Cr Clr Drug Dosing ml/min Est GFR ( Amer) Est GFR (Non-Af Amer) BUN/Creatinine Ratio (10-20) Glucose (70-99) mg/dl POC Glucose 122 H 111 H 128 H (70-99) Calcium (8.5-10.1) mg/dl
[2018-09-18] MEDS: WARFARIN SOD 5 MG TAB PO SCH (17:03)
[2018-09-18] MEDS: MAGNESIUM OXIDE 400 MG TAB PO SCH (20:52)
[2018-09-18] MEDS: TAMSULOSIN HCL 0.4 MG CAP PO SCH (20:52)
[2018-09-19] MEDS: ISOSORBIDE DINITRATE 10 MG TAB PO SCH ×2 (06:39→11:32)
[2018-09-19] MEDS: LEVOTHYROXINE SODIUM 100 MCG TABLET PO SCH (06:39)
[2018-09-19 06:56] LABS: INR 1.1 (0.9-1.1); Prothrombin Time 11.3 Seconds (9.0-12.0)
[2018-09-19 07:25] LABS: BUN Creatinine Ratio 16.9 (10-20); Calcium 8.3 mg/dl (8.5-10.1); Creatinine Clr Calc Pharmacy 44.9 ml/min; Est GFR (African American) 91.8; Est GFR (Non-African American) 79.2; Potassium 3.6 mmol/L (3.5-5.1)
[2018-09-19] MEDS: METOCLOPRAMIDE HCL 5 MG TABLET PO SCH ×3 (07:47→16:15)
[2018-09-19] MEDS: PANTOprazole 40 MG TAB PO SCH (07:47)
[2018-09-19] MEDS: CITALOPRAM 20 MG TAB PO SCH (07:47)
[2018-09-19] MEDS: FINASTERIDE 5 MG TAB PO SCH (07:49)
[2018-09-19] MEDS: FERROUS SULFATE 325 MG TAB PO SCH (07:49)
[2018-09-19] MEDS: AMIODARONE 200 MG TAB PO SCH (07:50)
[2018-09-19] MEDS: FUROSEMIDE 20 MG TAB PO SCH (07:50)
[2018-09-19] MEDS: ROSUVASTATIN CALCIUM 5 MG TAB PO SCH (07:50)
[2018-09-19] MEDS: HEPARIN SOD 5,000 UNIT/0.5 ML VIAL SQ SCH ×2 (07:51→21:12)
[2018-09-19] MEDS: INSULIN ASPART 100 UNITS/ML 3 ML PEN SC SCH ×4 (07:51→20:54)
[2018-09-19] MEDS: PSYLLIUM 58.6% POWDER PACKET PO SCH (07:52)
--- NOTE | 2018-09-19 13:50 | Palliative Care Consultation ---
Date of Consultation September 19, 2018 Assessment & Plan (1) Palliative care encounter: Patient is an 88-year-old male with a history of pancreatic cancer, gastric cancer, as well as oral cancer and lymphoma. Past medical history also includes CVA, CAD-status post CABG, status post stent placement, A. fib, systolic heart failure-EF 15-20%, hypertension, diabetes, valvular heart disease , CKD stage III, right ventricular apical thrombus. Patient presented to the hospital on 09/14 for increased shortness of breath and increased edema-patient was found to be in decompensated CHF. Echo performed on 1226 showed a decreased EF of 15-20%, down from 20-25%, a right ventricular apical thrombus. Patient was started on Coumadin and transition from IV to p.o. Lasix. Spoke with patient and his son at bedside as well as a daughter by phone. Family would like patient to stay at a daughter's home-patient and family excepting of hospice care, with goal of him returning back to his own home once waiver services in place. Patient currently has home health under [facility]-family would prefer to use them for hospice care also. -Pancreatic/gastric/oral cancer, lymphoma-no further treatment planned. -Systolic CHF-decreased EF now 15-20%, patient stable on current p.o. meds. Plan for patient to be taken under hospice care at the time of discharge -Right apical thrombus-patient now started on Coumadin (2) CHF (congestive heart failure): Patient stable on current meds Heart failure chronicity: unspecified Heart failure type: unspecified Qualified Code(s): I50.9 - Heart failure, unspecified (3) Cardiomyopathy, ischemic: Discussed with patient and son patient's poor endurance due to his end- stage CHF-patient appropriate for hospice care, discussed with case management (4) Pancreatic cancer: Pancreatic cancer/gastric cancer/oral cancer/lymphoma-no further aggressive treatment plan-patient appropriate for hospice care History of Present Illness Reason for Consultation: Address goals of care Requesting Physician: Dr. Ennis Attending Physician: Geetha Ennis MD History of Present Illness Patient is an 88-year-old male with a history of pancreatic cancer, gastric cancer, as well as oral cancer and lymphoma. Past medical history also includes CVA, CAD-status post CABG, status post stent placement, A. fib, systolic heart failure-EF 15-20%, hypertension, diabetes, valvular heart disease , CKD stage III, right ventricular apical thrombus. Patient presented to the hospital on 09/14 for increased shortness of breath and increased edema-patient was found to be in decompensated CHF. Echo performed on 1226 showed a decreased EF of 15-20%, down from 20-25%, a right ventricular apical thrombus. Patient was started on Coumadin and transition from IV to p.o. Lasix. Spoke with patient and his son at bedside as well as a daughter by phone. Family would like patient to stay at a daughter's home-patient and family excepting of hospice care, with goal of him returning back to his own home once waiver services in place. Patient currently has home health under [facility]-family would prefer to use them for hospice care also. Allergies Allergy/AdvReac Type Severity Reaction Status Date / Time aspirin AdvReac Severe INCREASED Verified 09/14/18 17:40 BLEEDING atorvastatin AdvReac Mild JOINT PAIN Verified 09/14/18 17:40 simvastatin AdvReac Mild JOINT PAIN Verified 09/14/18 17:40 Home Medications Home Medications Medication Instructions Recorded Confirmed Type nitroglycerin 1 tab SUBLINGUAL UD PRN #0 12/13/09 09/14/18 History magnesium oxide 400 mg PO QPM #0 12/20/09 09/14/18 History amiodarone [Pacerone] 100 mg PO QAM #0 07/24/13 09/14/18 History citalopram 10 mg PO QAM #0 07/24/13 09/14/18 History metformin [Glucophage] 500 mg PO BIDM #0 tab 07/24/13 09/14/18 History metoclopramide HCl [Reglan] 5 mg PO AC #0 07/24/13 09/14/18 History rosuvastatin [Crestor] 5 mg PO 3XWK #0 tab 07/24/13 09/14/18 History levothyroxine 100 mcg PO QAM #0 tab 01/17/17 09/14/18 History acetaminophen 500 mg PO Q4H PRN #0 tab 11/02/17 09/14/18 History ferrous sulfate 325 mg PO QAM #0 04/21/18 09/14/18 History tramadol [Ultram] 50 mg PO Q6H PRN #0 04/21/18 09/14/18 History pantoprazole [Protonix] 40 mg PO DAILY 05/24/18 09/14/18 History albuterol sulfate 2 inha INH Q6H PRN #8 gm 07/20/18 09/14/18 Rx docusate sodium 100 mg PO BID PRN 09/14/18 09/14/18 History finasteride 5 mg PO DAILY 09/14/18 09/14/18 History sennosides [senna] 8.6 mg PO DAILY PRN 09/14/18 09/14/18 History tamsulosin [Flomax] 0.4 mg PO HS 09/14/18 09/14/18 History Patient History Medical History Pancreatic cancer (Chronic) Gastric cancer (Chronic) GI bleed (Resolved) Hypertension (Chronic) Lymphoma (Resolved) CVA (cerebrovascular accident) (Resolved) Coronary artery disease (Chronic) 1990 - s/p CABG x 4 2009 - BMS to RCA Atrial fibrillation (Chronic) Stroke (Chronic) Systolic congestive heart failure (Chronic) "echo 12/13/09 demonstrated LVEF 15-20%" Oral mass (Chronic) Skin lesion (Chronic) Oral-mouth cancer (Resolved) DM2 (diabetes mellitus, type 2) (Chronic) Depression (Chronic) Hypothyroid (Chronic) HTN (hypertension) (Chronic) HLD (hyperlipidemia) (Chronic) Carotid stenosis (Chronic) BPH (benign prostatic hyperplasia) (Chronic) CKD (chronic kidney disease), stage III (Chronic) Status post left heart catheterization (LHC) (Chronic) 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) Anemia (Inactive) Atrial fibrillation (Inactive) BPH (benign prostatic hyperplasia) (Inactive) CAD (coronary artery disease) (Inactive) Carotid stenosis (Inactive) Chronic kidney disease (Inactive) STAGE 3 Congestive heart failure (Inactive) ECHO FROM 12/13/09 SHOWED AN EF OF 15-20%, SYSTOLIC CHF Depression (Inactive) Diabetes mellitus, type 2 (Inactive) GI bleed (Inactive) Hyperlipidemia (Inactive) Hypertension (Inactive) Hypothyroidism (Inactive) 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 PINA H/O carotid endarterectomy (Inactive) L [address] PINA H/O inguinal hernia repair (Inactive) H/O lymph node excision (Inactive) SUPRAHYOID LYMPHADENECTOMY H/O splenectomy (Inactive) History of appendectomy (Inactive) History of cardiac cath (Inactive) 2009 [place] [facility] [place]EM[place] History of cataract surgery (Inactive) BILATERAL History of colonoscopy (Inactive) History of coronary artery bypass graft (Inactive) QUADRUPLE BYPASS 1990 @ [place], FOLLOWS W DR. LEMUS History of esophagogastroduodenoscopy (EGD) (Inactive) History of mandibular surgery (Inactive) PARTIAL RECONSTRUCTION OF JAW/REMOVAL LOWER JAW 2012 History of pancreatic surgery (Inactive) PARTIAL REMOVAL History of tooth extraction (Inactive) Hx of cholecystectomy (Inactive) Hx of transurethral resection of prostate (Inactive) Family History Other No significant family history Social History Current Living Situation: Family Other Information That Helps Us Care for You: No Feels Safe at Home: Yes Safety Concerns: Feels Safe At This Time Smoking Status: Never smoker Tobacco Type: cigarettes and smokeless tobacco Second Hand Exposure: No Hx Alcohol Use: No Hx Substance Use: No Beliefs That Will Affect Care: None Communication Ability: Effective Review of Systems Generalized weakness Eyes: no problem reported Ear, Nose, Mouth, Throat: no problem reported Doing well on room air Additional Comments: pAF Gastrointestinal: no problem reported Musculoskeletal: + muscle weakness Integumentary: no problem reported Patient alert and oriented x4 Psychiatric: no problem reported Endocrine: no problem reported Anemia Physical Exam 2 Vital Signs (Past 24 Hours): Last Vital Signs Temp 36.6 C 09/19/18 11:21 Pulse 62 09/19/18 11:21 Resp 18 09/19/18 11:21 BP 100/51 L 09/19/18 11:21 Pulse Ox 90 09/19/18 11:21 Constitutional: NAD Eyes: EOMI ENMT: Mild [place] Respiratory: Unlabored, on room air Cardiovascular: Regular rate, no edema Gastrointestinal (Abdomen): Soft, nontender Musculoskeletal: Generalized weakness Skin: No rashes Neurologic: Alert and oriented x4 Psychiatric: Appropriate Time Spent Attending Total time spent 50 minutes with greater than 50% of the time spent at bedside, also collaborating with case management regarding discharge to the daughter's home under hospice care.
--- NOTE | 2018-09-19 14:28 | Hospitalist Progress Note ---
Date of Service September 19, 2018 Assessment & Plan (1) Systolic congestive heart failure: Has history of systolic heart failure Presented with acute on chronic systolic heart failure Chest x-ray suggestive of CHF and no evidence of any pneumonia Started with intravenous Lasix 40 mg twice daily We will continue with oxygen to maintain saturation ECHO: Concentric left ventricular hypertrophy with global hypokinesis and tenderness of gold, EF 15-20%, RV dilatation with apical thrombus. Appreciate cardiology input and recommendation Clinically much better today following diuresis Denies any more shortness of breath Continue intravenous diuretics Small dose of Ismo added Will start with oral Lasix of 40 mg daily Hydralazine 10 mg twice daily has been added Has had episode of low blood pressure this morning without any symptoms Hydralazine has been on hold and will discontinue Will need to oral furosemide on discharge Palliative care consulted for continued care at home with hospice (2) Atrial fibrillation: Rate is controlled now Has been on amiodarone Continue amiodarone for now Rate is controlled Restart low-dose Coumadin Has high risk of bleeding with history of GI bleeding in the past We will discuss with the daughter Discussed with the daughter and the son Has been taking Coumadin since yesterday INR is still not therapeutic Will go slow with history of GI bleed INR is 1.1 today Will increase Coumadin to 5 mg daily Rate remains controlled (3) DM2 (diabetes mellitus, type 2): Hold metformin Sliding scale insulin coverage Hemoglobin A1c-6.5 slightly improved from 6.9 in June 2018 (4) HTN (hypertension): Blood pressure seems to be controlled Continue current medication Blood pressure is controlled systolic around 110 Low blood pressure this morning Will hold hydralazine and discontinue Blood pressure is holding (5) Hypothyroid: Continue replacement (6) Pancreatic cancer: History of pancreatic cancer and also history of gastric cancer cancer, oral cancer and lymphoma Status post multiple surgery in abdomen with scars No evidence of any incisional hernia at this time (7) DVT prophylaxis: Heparin subcu Coumadin added INR remains subtherapeutic, continue Coumadin Will go slow given multiple comorbid condition and also history of GI bleed CODE STATUS; he is a DNR Subjective 88-year-old male with significant past medical history of paroxysmal atrial fibrillation on amiodarone, ischemic cardiomyopathy, chronic systolic heart failure, hypothyroidism, history of CVA and history of multiple cancers including enteric cancer, gastric cancer and oral cancer and also lymphoma was admitted with increasing shortness of breath and edema for the last few days. Noted to have acute on chronic CHF on admission. 09/15 Patient was seen and examined in telemetry Please not better with intravenous Lasix and diuresis Echo noted to have a right ventricular thrombus Denies any symptoms today 09/16 Patient was seen and examined in telemetry unit in presence of the son Has been feeling a lot better Complains of bowel has not moved Shortness of breath is much improved 09/17 Patient was seen and examined in telemetry unit He has been feeling a lot better Denies any shortness of breath and/or palpitation Bowel is moving 09/18 The patient was seen and examined in telemetry unit He was noted to have very low blood pressure this morning Hydralazine has been on hold Patient denies any symptoms during the examination 09/19 Patient was seen and examined in telemetry unit He remains a stable And his blood pressure remains controlled Denies any more shortness of breath at rest Awaiting to be seen by palliative care and possible discharge home with hospice within a day or 2 Respiratory: + cough, + chest congestion and + dyspnea Gastrointestinal: + bloating, + early satiety and + nausea; no vomiting Musculoskeletal: + muscle weakness Physical Exam 2 Vital Signs (Past 24 Hours): Last Vital Signs Temp 36.6 C 09/19/18 11:21 Pulse 62 09/19/18 11:21 Resp 18 09/19/18 11:21 BP 100/51 L 09/19/18 11:21 Pulse Ox 90 09/19/18 11:21 Constitutional: WD/WN, vitals as above (No apparent distress at rest) Eyes: PERRL, conjunctivae normal, anicteric sclerae Neck: trachea midline, no thyromegaly Respiratory: normal respiratory effort and + respiratory distress (Minimal respiratory) Auscultation: + diminished lung sounds and + crackles (Very minimal at the base); no wheezes Cardiovascular: Rate/Rhythm: regular rate; + abnormal rhythm Heart Sounds: normal S1, normal S2 and + murmur (2/6 ejection systolic murmur over precordium ) Gastrointestinal (Abdomen): Inspection/Auscultation: normal bowel sounds, + abdominal edema (Around lower abdomen and bilateral flank area) and + abdominal surgical incision Percussion/Palpation: abdomen soft Neurologic: moves all extremities and awake Results & Data Laboratory Results [facility] 09/19/18 06:29 Sodium 135 L Potassium 3.6 Chloride 95 L Carbon Dioxide 34 H BUN 14 Creatinine 0.80 Glucose 94 Calcium 8.3 L Medications Administered Current Inpatient Medications Acetaminophen (Tylenol) 650 mg PO Q4H PRN PRN Reason: Pain or Fever Stop: 10/14/18 18:16 Albuterol (Ventolin Hfa) 1 puffs INH Q6H PRN PRN Reason: shortness of breath or wheezing Stop: 10/14/18 19:59 Amiodarone HCl (Cordarone) 100 mg PO QAM [facility] Stop: 10/15/18 08:59 Last Admin: 09/19/18 07:50 Dose: 100 mg Citalopram Hydrobromide (Celexa) 10 mg PO QAM [facility] Stop: 10/15/18 08:59 Last Admin: 09/19/18 07:47 Dose: 10 mg Dextrose (Dextrose 50%) 25 - 50 ml IV UD PRN; Protocol PRN Reason: Hypoglycemia Protocol Stop: 10/14/18 20:09 Docusate Sodium (Colace) 100 mg PO BID PRN PRN Reason: Constipation Stop: 10/14/18 19:59 Ferrous S[facility] ([facility]osol) [facility] [place] Stop: 10/15/18 08:59 Last Admin: 09/19/18 07:49 Dose: 325 mg Finasteride (Proscar) 5 mg PO DAILY [facility] Stop: 10/15/18 08:59 Last Admin: 09/19/18 07:49 Dose: 5 mg Furosemide (Lasix) 20 mg PO QAM [facility] Stop: 10/19/18 08:59 Last Admin: 09/19/18 07:50 Dose: 20 mg Glucagon (Glucagen) 1 mg IM UD PRN; Protocol PRN Reason: Hypoglycemia Protocol Stop: 10/14/18 20:09 Glucose (Glucose 40%) 15 - 30 gm PO UD PRN; Protocol PRN Reason: Hypoglycemia Protocol Stop: 10/14/18 20:09 Glucose (Dex4 Glucose) 4 - 8 tabs PO UD PRN; Protocol PRN Reason: Hypoglycemia Protocol Stop: 10/14/18 20:09 Heparin Sodium (Porcine) (Heparin Sodium (Porcine)) 5,000 units SQ Q12 [facility] Stop: 10/14/18 20:59 Last Admin: 09/19/18 07:51 Dose: 5,000 units Hydralazine HCl (Apresoline) 10 mg PO BID [facility] Stop: 10/17/18 20:59 Last Admin: 09/18/18 08:13 Dose: Not Given Insulin Aspart (Novolog Flexpen) 0 units SC ACHS [facility] Stop: 10/14/18 20:59 Last Admin: 09/19/18 11:36 Dose: 1 units Isosorbide Dinitrate (Isordil) 10 mg PO BID@0700,1200 [facility] Stop: 10/16/18 11:59 Last Admin: 09/19/18 11:32 Dose: 10 mg Levothyroxine Sodium (Synthroid) 100 mcg PO DAILYBB [facility] Stop: 10/15/18 06:29 Last Admin: 09/19/18 06:39 Dose: 100 mcg Magnesium Oxide (Mag-Ox) 400 mg PO QPM [facility] Stop: 10/14/18 20:59 Last Admin: 09/18/18 20:52 Dose: 400 mg Metoclopramide HCl (Reglan) 5 mg PO AC [facility] Stop: 10/15/18 07:29 Last Admin: 09/19/18 11:33 Dose: 5 mg Miscellaneous (Carbohydrates For Hypoglycemia) 15 - 30 gm PO UD PRN PRN Reason: Hypoglycemia Treatment Stop: 10/14/18 20:09 Nitroglycerin (Nitrostat) 0.4 mg SL UD PRN PRN Reason: Angina Stop: 10/14/18 19:59 Pantoprazole Sodium (Protonix) 40 mg PO DAILY [facility] Stop: 10/15/18 08:59 Last Admin: 09/19/18 07:47 Dose: 40 mg Psyllium Hydrophilic Mucilloid (Metamucil) 1 pkt PO QAM [facility] Stop: 10/16/18 16:29 Last Admin: 09/19/18 07:52 Dose: 1 pkt Rosuvastatin Calcium (Crestor) 5 mg PO MoWeFr@0900 [facility] Stop: 10/16/18 08:59 Last Admin: 09/19/18 07:50 Dose: 5 mg Sennosides (Senokot) 8.6 mg PO DAILY PRN PRN Reason: Constipation Stop: 10/14/18 19:59 Tamsulosin HCl (Flomax) 0.4 mg PO HS [facility] Stop: 10/14/18 20:59 Last Admin: 09/18/18 20:52 Dose: 0.4 mg Tramadol HCl (Ultram) 50 mg PO Q6H PRN PRN Reason: Pain Stop: 10/14/18 19:59 Warfarin Sodium (Coumadin) 5 mg PO DAILY@1600 [facility] Stop: 10/18/18 15:59 Last Admin: 09/18/18 17:03 Dose: 5 mg
[2018-09-19] MEDS: WARFARIN SOD 5 MG TAB PO SCH (16:15)
[2018-09-19] MEDS: TAMSULOSIN HCL 0.4 MG CAP PO SCH (21:08)
[2018-09-19] MEDS: MAGNESIUM OXIDE 400 MG TAB PO SCH (21:10)
[2018-09-20] MEDS: LEVOTHYROXINE SODIUM 100 MCG TABLET PO SCH (06:43)
[2018-09-20 07:15] LABS: INR 1.3 (0.9-1.1); Prothrombin Time 13.3 Seconds (9.0-12.0)
[2018-09-20] MEDS: INSULIN ASPART 100 UNITS/ML 3 ML PEN SC SCH ×4 (08:04→20:53)
[2018-09-20] MEDS: ISOSORBIDE DINITRATE 10 MG TAB PO SCH ×2 (08:10→12:08)
[2018-09-20] MEDS: CITALOPRAM 20 MG TAB PO SCH (08:10)
[2018-09-20] MEDS: METOCLOPRAMIDE HCL 5 MG TABLET PO SCH ×3 (08:10→17:00)
[2018-09-20] MEDS: AMIODARONE 200 MG TAB PO SCH (08:11)
[2018-09-20] MEDS: FERROUS SULFATE 325 MG TAB PO SCH (08:11)
[2018-09-20] MEDS: FUROSEMIDE 20 MG TAB PO SCH (08:12)
[2018-09-20] MEDS: FINASTERIDE 5 MG TAB PO SCH (08:12)
[2018-09-20] MEDS: PSYLLIUM 58.6% POWDER PACKET PO SCH (08:12)
[2018-09-20] MEDS: PANTOprazole 40 MG TAB PO SCH (08:12)
[2018-09-20] MEDS: HEPARIN SOD 5,000 UNIT/0.5 ML VIAL SQ SCH ×2 (08:13→20:49)
--- NOTE | 2018-09-20 11:35 | Hospitalist Progress Note ---
Date of Service September 20, 2018 Assessment & Plan (1) Systolic congestive heart failure: Has history of systolic heart failure Presented with acute on chronic systolic heart failure Chest x-ray suggestive of CHF and no evidence of any pneumonia Started with intravenous Lasix 40 mg twice daily We will continue with oxygen to maintain saturation ECHO: Concentric left ventricular hypertrophy with global hypokinesis and tenderness of gold, EF 15-20%, RV dilatation with apical thrombus. Appreciate cardiology input and recommendation Clinically much better today following diuresis Denies any more shortness of breath Continue intravenous diuretics Small dose of Ismo added Will start with oral Lasix of 40 mg daily Hydralazine 10 mg twice daily has been added Has had episode of low blood pressure this morning without any symptoms Hydralazine has been on hold and will discontinue Palliative care consulted for continued care at home with hospice He has been getting furosemide 20 mg a day (2) Atrial fibrillation: Rate is controlled now Has been on amiodarone Continue amiodarone for now Rate is controlled Restart low-dose Coumadin Has high risk of bleeding with history of GI bleeding in the past We will discuss with the daughter Discussed with the daughter and the son Has been taking Coumadin since yesterday INR is still not therapeutic Will go slow with history of GI bleed INR is 1.3 today Will increase Coumadin to 5 mg daily Rate remains controlled (3) DM2 (diabetes mellitus, type 2): Hold metformin Sliding scale insulin coverage Hemoglobin A1c-6.5 slightly improved from 6.9 in June 2018 (4) HTN (hypertension): Blood pressure seems to be controlled Continue current medication Blood pressure is controlled systolic around 110 Low blood pressure this morning Will hold hydralazine and discontinue Blood pressure is holding (5) Hypothyroid: Continue replacement (6) Pancreatic cancer: History of pancreatic cancer and also history of gastric cancer cancer, oral cancer and lymphoma Status post multiple surgery in abdomen with scars No evidence of any incisional hernia at this time (7) DVT prophylaxis: Heparin subcu Coumadin added INR remains subtherapeutic, continue Coumadin Will go slow given multiple comorbid condition and also history of GI bleed CODE STATUS; he is a DNR Waiting to be seen by hospice and set of arrangements at home so that the patient can be discharged tomorrow September. Subjective 88-year-old male with significant past medical history of paroxysmal atrial fibrillation on amiodarone, ischemic cardiomyopathy, chronic systolic heart failure, hypothyroidism, history of CVA and history of multiple cancers including enteric cancer, gastric cancer and oral cancer and also lymphoma was admitted with increasing shortness of breath and edema for the last few days. Noted to have acute on chronic CHF on admission. 09/15 Patient was seen and examined in telemetry Please not better with intravenous Lasix and diuresis Echo noted to have a right ventricular thrombus Denies any symptoms today 09/16 Patient was seen and examined in telemetry unit in presence of the son Has been feeling a lot better Complains of bowel has not moved Shortness of breath is much improved 09/17 Patient was seen and examined in telemetry unit He has been feeling a lot better Denies any shortness of breath and/or palpitation Bowel is moving 09/18 The patient was seen and examined in telemetry unit He was noted to have very low blood pressure this morning Hydralazine has been on hold Patient denies any symptoms during the examination 09/19 Patient was seen and examined in telemetry unit He remains a stable And his blood pressure remains controlled Denies any more shortness of breath at rest Awaiting to be seen by palliative care and possible discharge home with hospice within a day or 2 09/20 Patient was seen and examined in telemetry unit He denies to any complaints except his bowel has not moved yet He denies to have any shortness of breath, palpitation, nausea and/or vomiting Respiratory: + cough, + chest congestion and + dyspnea Gastrointestinal: + bloating, + early satiety and + nausea; no vomiting Musculoskeletal: + muscle weakness Physical Exam 2 Vital Signs (Past 24 Hours): Last Vital Signs Temp 36.7 C 09/20/18 07:43 Pulse 71 09/20/18 07:43 Resp 18 09/20/18 07:43 BP 108/61 09/20/18 07:43 Pulse Ox 96 09/20/18 07:43 Constitutional: WD/WN, vitals as above (No apparent distress at rest) Eyes: PERRL, conjunctivae normal, anicteric sclerae Neck: trachea midline, no thyromegaly Respiratory: normal respiratory effort and + respiratory distress (Minimal respiratory) Auscultation: + diminished lung sounds and + crackles (Very minimal at the base); no wheezes Cardiovascular: Rate/Rhythm: regular rate; + abnormal rhythm Heart Sounds: normal S1, normal S2 and + murmur (2/6 ejection systolic murmur over precordium ) Gastrointestinal (Abdomen): Inspection/Auscultation: normal bowel sounds, + abdominal edema (Around lower abdomen and bilateral flank area) and + abdominal surgical incision Percussion/Palpation: abdomen soft Musculoskeletal: Almost bedbound. He admits assistance in almost every ADL S Neurologic: moves all extremities and awake
[2018-09-20] MEDS: WARFARIN SOD 5 MG TAB PO SCH (17:00)
[2018-09-20] MEDS: MAGNESIUM OXIDE 400 MG TAB PO SCH (20:48)
[2018-09-20] MEDS: TAMSULOSIN HCL 0.4 MG CAP PO SCH (20:49)
[2018-09-21] MEDS: LEVOTHYROXINE SODIUM 100 MCG TABLET PO SCH (05:25)
[2018-09-21 06:55] LABS: INR 1.5 (0.9-1.1); Prothrombin Time 14.8 Seconds (9.0-12.0)
[2018-09-21 07:00] LABS: BUN Creatinine Ratio 15.3 (10-20); Calcium 8.6 mg/dl (8.5-10.1); Est GFR (African American) 84.1; Est GFR (Non-African American) 72.5; Potassium 4.2 mmol/L (3.5-5.1)
[2018-09-21 08:20] LABS: Basophils # (auto) 0.04 K/uL (0-0.2); Basophils % (auto) 0.9 %; Eosinophils # (auto) 0.18 K/uL (0-0.5); Eosinophils % (auto) 3.8 %; Hematocrit (blood only) 36.1 % (42-52); Immature Granulocytes # (auto) 0.01 K/uL (0.00-0.02); Immature Granulocytes % (auto) 0.2 %; Lymphocytes % (auto) 23.4 %; Mean Corpuscular Hgb Conc 30.5 g/dL (32-36); Mean Corpuscular Volume 89.4 fL (80-100); Mean Platelet Volume 11.8 fL (7.4-10.4); Monocytes # (auto) 1.01 K/uL (0.11-0.59); Monocytes % (auto) 21.5 %; Neutrophils # (auto) 2.36 K/uL (1.4-6.5); Neutrophils % (auto) 50.2 %; Platelet Count 218 K/uL (130-400); RDW Coefficient of Variation 18.9 % (11.5-14.5); RDW Standard Deviation 62.1 fL (36.4-46.3); Red Blood Count 4.04 M/uL (4.7-6.1)
[2018-09-21] MEDS: CITALOPRAM 20 MG TAB PO SCH (09:15)
[2018-09-21] MEDS: INSULIN ASPART 100 UNITS/ML 3 ML PEN SC SCH ×4 (09:16→20:20)
[2018-09-21] MEDS: FINASTERIDE 5 MG TAB PO SCH (09:17)
[2018-09-21] MEDS: ISOSORBIDE DINITRATE 10 MG TAB PO SCH ×2 (09:17→14:34)
[2018-09-21] MEDS: AMIODARONE 200 MG TAB PO SCH (09:17)
[2018-09-21] MEDS: FUROSEMIDE 20 MG TAB PO SCH (09:17)
[2018-09-21] MEDS: ROSUVASTATIN CALCIUM 5 MG TAB PO SCH (09:18)
[2018-09-21] MEDS: FERROUS SULFATE 325 MG TAB PO SCH (09:18)
[2018-09-21] MEDS: PANTOprazole 40 MG TAB PO SCH (09:18)
[2018-09-21] MEDS: METOCLOPRAMIDE HCL 5 MG TABLET PO SCH ×3 (09:19→16:49)
[2018-09-21] MEDS: HEPARIN SOD 5,000 UNIT/0.5 ML VIAL SQ SCH ×2 (09:19→20:16)
[2018-09-21] MEDS: PSYLLIUM 58.6% POWDER PACKET PO SCH (09:19)
--- NOTE | 2018-09-21 11:03 | Hospitalist Progress Note ---
Date of Service September 21, 2018 Assessment & Plan (1) Systolic congestive heart failure: per Dr Ennis notes: Has history of systolic heart failure Presented with acute on chronic systolic heart failure Chest x-ray suggestive of CHF and no evidence of any pneumonia Started with intravenous Lasix 40 mg twice daily ECHO: Concentric left ventricular hypertrophy with global hypokinesis and tenderness of gold, EF 15-20%, RV dilatation with apical thrombus. transitioned to oral Lasix , now at 20mg po daily Hydralazine 10 mg twice daily has been added- discontinued due to low BPs Palliative care consulted for continued care at home with hospice (2) Atrial fibrillation: Rate is controlled Continue amiodarone on coumadin INR 1.5 continue coumadin 5mg po today check INR tomorrow may only need coumadin 3mg po daily, monitor INR closely due to history of GI bleed (3) DM2 (diabetes mellitus, type 2): Hold metformin Sliding scale insulin coverage Hemoglobin A1c-6.5 slightly improved from 6.9 in June 2018 (4) HTN (hypertension): BP on the low normal side monitor (5) Hypothyroid: Continue replacement (6) Pancreatic cancer: History of pancreatic cancer and also history of gastric cancer cancer, oral cancer and lymphoma Status post multiple surgery in abdomen with scars No evidence of any incisional hernia at this time (7) DVT prophylaxis: Heparin subcu Coumadin added INR remains subtherapeutic, continue Coumadin Will go slow given multiple comorbid condition and also history of GI bleed CODE STATUS; he is a DNR Disposition awaiting hospice with home arrangements case managfement on board Subjective ff up for acute CHF seen resting in bed, comfortable states he feels fine overall except for mild pain on his left thigh- worse with movement denies hip or knee pain no chest pain, dyspnea, cough, palpitations, dizziness no other symptoms Physical Exam 2 Vital Signs (Past 24 Hours): Last Vital Signs Temp 36.5 C 09/21/18 08:02 Pulse 68 09/21/18 08:02 Resp 18 09/21/18 08:02 BP 109/52 L 09/21/18 08:02 Pulse Ox 98 09/21/18 08:02 Physical Exam: General- oriented x 2, not in distress, speaks in sentences with no effort or accessory muscle use Eyes- anicteric Neck- no JVD Lungs- clear breath sounds bilaterally, no rales/wheezes Heart- normal rate, regular rhythm; no murmurs Abdomen- normal bowel sounds, nondistended, soft, nontender Extremities- no pretibial edema, no calf tenderness Neuro- alert, oriented x 2; no gross focal neurologic deficits Skin- warm & dry Results & Data Laboratory Results Laboratory Results - last 24 hr 09/20/18 09/20/18 09/20/18 11:26 16:16 20:26 WBC RBC Hgb Hct MCV MCH MCHC RDW Std Deviation RDW Coeff of Vero Plt Count MPV Immature Gran % (Auto) Neut % (Auto) Lymph % (Auto) [place] % (Auto) Eos % (Auto) Baso % (Auto) Immature Gran # (Auto) Neut # (Auto) Lymph # (Auto) [place] # (Auto) Eos # (Auto) Baso # (Auto) PT INR Sodium Potassium Chloride Carbon Dioxide Anion Gap BUN Creatinine Est Cr Clr Drug Dosing Est GFR ( Amer) Est GFR (Non-Af Amer) BUN/Creatinine Ratio Glucose POC Glucose 155 H 124 H 139 H Calcium 09/21/18 09/21/18 09/21/18 06:08 06:08 06:08 WBC 4.70 L RBC 4.04 L Hgb 11.0 L Hct 36.1 L MCV 89.4 MCH 27.2 MCHC 30.5 L RDW Std Deviation 62.1 H RDW Coeff of Vero 18.9 H Plt Count 218 MPV 11.8 H Immature Gran % (Auto) 0.2 Neut % (Auto) 50.2 Lymph % (Auto) 23.4 [place] % (Auto) 21.5 Eos % (Auto) 3.8 Baso % (Auto) 0.9 Immature Gran # (Auto) 0.01 Neut # (Auto) 2.36 Lymph # (Auto) 1.10 L [place] # (Auto) 1.01 H Eos # (Auto) 0.18 Baso # (Auto) 0.04 PT 14.8 H INR 1.5 H Sodium 136 Potassium 4.2 D Chloride 98 Carbon Dioxide 35 H Anion Gap 3.0 BUN 14 Creatinine 0.93 Est Cr Clr Drug Dosing 39.0 Est GFR ( Amer) 84.1 Est GFR (Non-Af Amer) 72.5 BUN/Creatinine Ratio 15.3 Glucose 88 POC Glucose Calcium 8.6 01/02/19 07:38 WBC RBC Hgb Hct MCV MCH MCHC RDW Std Deviation RDW Coeff of Vero Plt Count MPV Immature Gran % (Auto) Neut % (Auto) Lymph % (Auto) [place] % (Auto) Eos % (Auto) Baso % (Auto) Immature Gran # (Auto) Neut # (Auto) Lymph # (Auto) [place] # (Auto) Eos # (Auto) Baso # (Auto) PT INR Sodium Potassium Chloride Carbon Dioxide Anion Gap BUN Creatinine Est Cr Clr Drug Dosing Est GFR ( Amer) Est GFR (Non-Af Amer) BUN/Creatinine Ratio Glucose POC Glucose 95 Calcium
--- NOTE | 2018-09-21 11:41 | Palliative Care Progress Note ---
Date of Service September 21, 2018 Assessment & Plan (1) Palliative care encounter: -88-year-old male with a history of pancreatic cancer, gastric cancer, as well as oral cancer and lymphoma. Past medical history also includes CVA, CAD- status post CABG, status post stent placement, A. fib, systolic heart failure- EF 15-20%, hypertension, diabetes, valvular heart disease, CKD stage III, right ventricular apical thrombus. Patient presented to the hospital on 09/14 for increased shortness of breath and increased edema-patient was found to be in decompensated CHF. Echo performed on 1226 showed a decreased EF of 15-20%, down from 20-25%, a right ventricular apical thrombus. Patient was started on Coumadin and transition from IV to p.o. Lasix. -Plan is for home with hospice today once all equipment is delivered. -Saw patient this morning to ensure comfort prior to discharge. Patient is awake , in no distress and denies any pain or SOB at this time. Does c/o cough, but not severe. Does admit to some JAMES with exertion and states he continues to be very weak. Patient is anxious to get home. -Seems stable for transfer home with hospice. Please contact us with any further palliative care needs. (2) CHF (congestive heart failure): -Continue current medications. (3) Cardiomyopathy, ischemic: (4) Pancreatic cancer: -No further aggressive measures. Subjective Patient is feeling okay today, does have weakness and a cough. Plan is for home with hospice and family today. See A&P. Constitutional: + weakness Ear, Nose, Mouth, Throat: no dysphagia Respiratory: + cough and + dyspnea on exertion; no dyspnea Cardiovascular: no chest pain and no edema Gastrointestinal: no abdominal pain, no nausea and no vomiting Neurologic: no confusion Psychiatric: no anxiety Physical Exam 2 Vital Signs (Past 24 Hours): Last Vital Signs Temp 36.5 C 09/21/18 08:02 Pulse 68 09/21/18 08:02 Resp 18 09/21/18 08:02 BP 109/52 L 09/21/18 08:02 Pulse Ox 98 09/21/18 08:02 Constitutional: + ill appearing and + thin; no acute distress Neck: trachea midline, no thyromegaly Respiratory: normal respiratory effort Auscultation: lungs clear to auscultation bilaterally and + diminished lung sounds Cardiovascular: Rate/Rhythm: regular rate; + abnormal rhythm Vessels: no JVD Extremities: no edema Gastrointestinal (Abdomen): Inspection/Auscultation: normal bowel sounds Percussion/Palpation: abdomen soft; abdomen nontender Neurologic: moves all extremities and awake Time Spent Midlevel 25 minutes with >50% of time spent at bedside with patient counseling/ discussing GOC and home hospice. _ (1) CHF (congestive heart failure) Heart failure chronicity: unspecified Heart failure type: unspecified Qualified Code(s): I50.9 - Heart failure, unspecified
[2018-09-21] MEDS: WARFARIN SOD 5 MG TAB PO SCH (16:49)
[2018-09-21] MEDS: MAGNESIUM OXIDE 400 MG TAB PO SCH (20:15)
[2018-09-21] MEDS: TAMSULOSIN HCL 0.4 MG CAP PO SCH (20:15)
[2018-09-22] MEDS: LEVOTHYROXINE SODIUM 100 MCG TABLET PO SCH (05:36)
[2018-09-22] MEDS: ISOSORBIDE DINITRATE 10 MG TAB PO SCH (06:38)
[2018-09-22 07:24] LABS: INR 1.7 (0.9-1.1); Prothrombin Time 16.7 Seconds (9.0-12.0)
--- NOTE | 2018-09-22 08:02 | Hospitalist Progress Note ---
Date of Service September 22, 2018 Assessment & Plan (1) Systolic congestive heart failure: per Dr Ennis notes: Has history of systolic heart failure Presented with acute on chronic systolic heart failure Chest x-ray suggestive of CHF and no evidence of any pneumonia Started with intravenous Lasix 40 mg twice daily ECHO: Concentric left ventricular hypertrophy with global hypokinesis and tenderness of gold, EF 15-20%, RV dilatation with apical thrombus. transitioned to oral Lasix , now at 20mg po daily Hydralazine 10 mg twice daily has been added- discontinued due to low BPs Palliative care consulted for continued care at home with hospice remains euvolemic continue Lasix 20mg po daily , fluid restriction 1500ml/day (2) Atrial fibrillation: Rate is controlled Continue amiodarone on coumadin 5mg daily INR slowly increasing from 1.5 o 1.7 continue coumadin 5mg po today check INR tomorrow may only need coumadin 3mg po daily, monitor INR closely and titrate coumadin slowly due to history of GI bleed (3) DM2 (diabetes mellitus, type 2): BSGs 90s to 130s recommend to reduce Metformin from 500mg BID to daily monitor BSGs (4) HTN (hypertension): BP on the low normal side monitor (5) Hypothyroid: Continue replacement (6) Pancreatic cancer: History of pancreatic cancer and also history of gastric cancer cancer, oral cancer and lymphoma Status post multiple surgery in abdomen with scars No evidence of any incisional hernia at this time (7) DVT prophylaxis: on coumadin CODE STATUS; he is a DNR Disposition d/c home with hospice case management on board ff up with PCP in 1 week Subjective ff up for acute CHF seen resting in bed, alert, oriented remains comfortable states he had a great night, states he feels fine overall denies shortness of breath, dyspnea, palpitations, dizziness, chest pain leg pain resolved reports constipation but (+) flatus, no nausea denies other symptoms states he is ready for discharge today Physical Exam 2 Vital Signs (Past 24 Hours): Last Vital Signs Temp 36.7 C 09/22/18 07:25 Pulse 65 09/22/18 07:25 Resp 16 09/22/18 07:25 BP 101/46 L 09/22/18 07:25 Pulse Ox 95 09/22/18 07:25 Physical Exam: General- oriented x 2, not in distress, speaks in sentences with no effort or accessory muscle use Eyes- anicteric Neck- no JVD Lungs- mild rales right base, no wheezing, clear on the left Heart- normal rate, regular rhythm; no murmurs Abdomen- normal bowel sounds, nondistended, soft, nontender Extremities- no pretibial edema, no calf tenderness Neuro- alert, oriented x 2; no gross focal neurologic deficits Skin- warm & dry Results & Data Laboratory Results Laboratory Results - last 24 hr 09/21/18 09/21/18 09/21/18 06:08 11:41 16:27 WBC 4.70 L RBC 4.04 L Hgb 11.0 L Hct 36.1 L MCV 89.4 MCH 27.2 MCHC 30.5 L RDW Std Deviation 62.1 H RDW Coeff of Vero 18.9 H Plt Count 218 MPV 11.8 H Immature Gran % (Auto) 0.2 Neut % (Auto) 50.2 Lymph % (Auto) 23.4 Johnston % (Auto) 21.5 Eos % (Auto) 3.8 Baso % (Auto) 0.9 Immature Gran # (Auto) 0.01 Neut # (Auto) 2.36 Lymph # (Auto) 1.10 L Johnston # (Auto) 1.01 H Eos # (Auto) 0.18 Baso # (Auto) 0.04 PT INR POC Glucose 133 H 141 H 09/21/18 09/22/18 09/22/18 20:20 06:42 07:38 WBC RBC Hgb Hct MCV MCH MCHC RDW Std Deviation RDW Coeff of Vero Plt Count MPV Immature Gran % (Auto) Neut % (Auto) Lymph % (Auto) Johnston % (Auto) Eos % (Auto) Baso % (Auto) Immature Gran # (Auto) Neut # (Auto) Lymph # (Auto) Johnston # (Auto) Eos # (Auto) Baso # (Auto) PT 16.7 H INR 1.7 H POC Glucose 114 H 101 H
[2018-09-22] MEDS: INSULIN ASPART 100 UNITS/ML 3 ML PEN SC SCH (08:05)
[2018-09-22] MEDS: FUROSEMIDE 20 MG TAB PO SCH (08:12)
[2018-09-22] MEDS: FINASTERIDE 5 MG TAB PO SCH (08:12)
[2018-09-22] MEDS: METOCLOPRAMIDE HCL 5 MG TABLET PO SCH (08:12)
[2018-09-22] MEDS: PANTOprazole 40 MG TAB PO SCH (08:13)
[2018-09-22] MEDS: AMIODARONE 200 MG TAB PO SCH (08:14)
[2018-09-22] MEDS: FERROUS SULFATE 325 MG TAB PO SCH (08:14)
[2018-09-22] MEDS: PSYLLIUM 58.6% POWDER PACKET PO SCH (08:15)
[2018-09-22] MEDS: HEPARIN SOD 5,000 UNIT/0.5 ML VIAL SQ SCH (08:15)
[2018-09-22] MEDS: CITALOPRAM 20 MG TAB PO SCH (08:15)
--- NOTE | 2018-09-23 19:59 | Discharge Summary ---
Date of Service September 23, 2018 Admission HPI Per Admitting Provider Is an 88-year-old male with significant past medical history including history of pancreatic cancer and gastric cancer and also oral cancer status post surgery , history of lymphoma, history of CVA, CAD with atrial fibrillation on amiodarone, systolic heart failure and hypertension has been complaining of increasing shortness of breath with productive cough and also swelling involving the lower trunk and upper thigh areas. History is taken from the patient and the daughter. Cough has been productive with whitish phlegm but no history of fever and/or chills. No chest pain and/or palpitation. The daughter noticed to have swelling involving the lower chronic in both sides also upper thigh areas. No significant swelling of the legs. Denies any problem with urine and her bowel habit. Apparently the patient is more or less bedbound with minimal activity and uses a walker at times. In ER he was noted to have shortness of breath with 90% saturation on room air and apparent investigation showed that he has acute CHF chest x-ray. Relevant blood test was unremarkable. He was admitted to telemetry unit for continuation of care. Admission Exam Per Admitting Provider Vital Signs (Past 24 Hours): Last Vital Signs Temp 35.9 C L 09/14/18 15:33 Pulse 76 09/14/18 17:08 Resp 16 09/14/18 17:08 BP 144/74 H 09/14/18 17:08 Pulse Ox 96 09/14/18 17:08 Physical Exam: Lying in bed comfortably Constitutional: WD/WN, vitals as above (No apparent distress at rest) Eyes: PERRL, conjunctivae normal, anicteric sclerae Neck: trachea midline, no thyromegaly Right facial deformity especially lower jaw area. No tenderness to palpation Respiratory: + respiratory distress (Minimal respiratory) Auscultation: + diminished lung sounds and + crackles (At the bases); no wheezes Cardiovascular: Rate/Rhythm: regular rate; + abnormal rhythm Heart Sounds: normal S1, normal S2 and + murmur (2/6 ejection systolic murmur over precordium ) Gastrointestinal (Abdomen): Inspection/Auscultation: normal bowel sounds, + abdominal edema (Around lower abdomen and bilateral flank area) and + abdominal surgical incision Percussion/Palpation: abdomen soft Musculoskeletal: No acute arthritis in any joint Neurologic: moves all extremities and awake Principal Diagnosis ACUTE SYSTOLIC CONGESTIVE HEART FAILURE Discharge Exam Vital Signs (Past 24 Hours): Last Vital Signs Temp 36.7 C 09/22/18 07:25 Pulse 65 09/22/18 07:25 Resp 16 09/22/18 07:25 BP 101/46 L 09/22/18 07:25 Pulse Ox 95 09/22/18 07:25 Physical Exam: General- oriented x 2, not in distress, speaks in sentences with no effort or accessory muscle use Eyes- anicteric Neck- no JVD Lungs- mild rales right base, no wheezing, clear on the left Heart- normal rate, regular rhythm; no murmurs Abdomen- normal bowel sounds, nondistended, soft, nontender Extremities- no pretibial edema, no calf tenderness Neuro- alert, oriented x 2; no gross focal neurologic deficits Skin- warm & dry Discharge Data Allergies Allergy/AdvReac Type Severity Reaction Status Date / Time aspirin AdvReac Severe INCREASED Verified 09/14/18 17:40 BLEEDING atorvastatin AdvReac Mild JOINT PAIN Verified 09/14/18 17:40 simvastatin AdvReac Mild JOINT PAIN Verified 09/14/18 17:40 Consultations 09/14/18 17:06 ED Decision to Admit Stat 09/15/18 09:29 Consult Cardiology Routine 09/19/18 08:06 Consult Palliative Care Routine Hospital Course (1) Systolic congestive heart failure: per Dr Ennis notes: Has history of systolic heart failure Presented with acute on chronic systolic heart failure Chest x-ray suggestive of CHF and no evidence of any pneumonia Started with intravenous Lasix 40 mg twice daily ECHO: Concentric left ventricular hypertrophy with global hypokinesis and tenderness of gold, EF 15-20%, RV dilatation with apical thrombus. transitioned to oral Lasix , now at 20mg po daily Hydralazine 10 mg twice daily has been added- discontinued due to low BPs Palliative care consulted for continued care at home with hospice remains euvolemic continue Lasix 20mg po daily , fluid restriction 1500ml/day (2) Atrial fibrillation: Rate is controlled Continue amiodarone on coumadin 5mg daily INR slowly increasing from 1.5 o 1.7 continue coumadin 5mg po today check INR tomorrow may only need coumadin 3mg po daily, monitor INR closely and titrate coumadin slowly due to history of GI bleed (3) DM2 (diabetes mellitus, type 2): BSGs 90s to 130s recommend to reduce Metformin from 500mg BID to daily monitor BSGs (4) HTN (hypertension): BP on the low normal side monitor (5) Hypothyroid: Continue replacement (6) Pancreatic cancer: History of pancreatic cancer and also history of gastric cancer cancer, oral cancer and lymphoma Status post multiple surgery in abdomen with scars No evidence of any incisional hernia at this time (7) DVT prophylaxis: on coumadin CODE STATUS; he is a DNR Disposition d/c home with hospice case management on board ff up with PCP in 1 week Total Time Total Time Spent Total Time Spent (In Minutes): 30 MINS Total Time Includes: Examination of the Patient, Discharge Planning and Medication Reconciliation Discharge Plan Discharge Items Patient Disposition: Hospice - Home Reason For Visit: INCREASING SHORTNESS OF BREATH WITH COUGH Discharge Diagnosis: ACUTE ON CHRONIC SYSTOLIC CONGESTIVE HEART FAILURE Discharge Goals: Diagnostic testing and Therapeutic intervention Activity: As commented below Activity Comment: FALL PRECAUTIONS, NO HEAVY EXERTION Non-emergency contact: Primary Care Provider Call non-emergency contact if: you have any medication questions, your symptoms worsen, your pain is not controlled, your pain is worsening, your pain is unusual for you, your pain is concerning for you and you have a fever Diet: Heart Healthy Fluids: 1500ml (6 cups) Diet Texture: Mechanical soft (ground) Diet Comment: ASPIRATION PRECAUTIONS PLEASE Addtl Provider Instructions: CONTINUE HOME WITH HOSPICE SERVICES. FOLLOW UP WITH PRIMARY CARE PHYSICIAN WITHIN 1 WEEK. On coumadin 5mg daily INR slowly increasing from 1.5 to 1.7 continue coumadin 5mg po today 09/22/18 check INR tomorrow and regularly may only need coumadin 3mg po daily, monitor INR closely and titrate coumadin slowly due to history of GI bleed BSGs 90s to 130s recommend to reduce Metformin from 500mg BID to daily monitor BSGs Prescriptions: New isosorbide dinitrate 10 mg Tablet 10 mg PO BID@0700,1200 30 Days Qty: 60 RF: 0 psyllium husk [Konsyl Sugar-Free] 6 gram powder in packet 1 pkg PO QAM 14 Days RF: 0 warfarin 5 mg tablet 5 mg PO DAILY@1600 7 Days RF: 0 furosemide 20 mg Tablet 20 mg PO QAM 30 Days Qty: 30 RF: 2 Continue nitroglycerin 0.4 mg Tablet, Sublingual 1 tab Sublingual UD PRN (Reason: Angina) Qty: 0 RF: 0 magnesium oxide 400 mg Capsule 400 mg PO QPM Qty: 0 RF: 0 rosuvastatin [Crestor] 5 mg Tablet 5 mg PO 3XWK Qty: 0 RF: 0 metoclopramide HCl [Reglan] 5 mg Tablet 5 mg PO AC Qty: 0 RF: 0 amiodarone [Pacerone] 200 mg Tablet 100 mg PO QAM Qty: 0 RF: 0 citalopram 10 mg Tablet 10 mg PO QAM Qty: 0 RF: 0 levothyroxine 100 mcg Capsule 100 mcg PO QAM Qty: 0 RF: 0 acetaminophen 500 mg Capsule 500 mg PO Q4H PRN (Reason: PAIN/FEVER) Qty: 0 RF: 0 tramadol [Ultram] 50 mg Tablet 50 mg PO Q6H PRN (Reason: Pain) Qty: 0 RF: 0 ferrous sulfate 325 mg (65 mg iron) Tablet 325 mg PO QAM Qty: 0 RF: 0 pantoprazole [Protonix] 40 mg Tablet,Delayed Release (Dr/Ec) 40 mg PO DAILY RF: 0 albuterol sulfate 90 mcg/actuation HFA aerosol inhaler 2 inha INH Q6H PRN (Reason: shortness of breath or wheezing) Qty: 8 RF: 0 sennosides [senna] 8.6 mg Tablet 8.6 mg PO DAILY PRN (Reason: Constipation) RF: 0 tamsulosin [Flomax] 0.4 mg Capsule 0.4 mg PO HS RF: 0 docusate sodium 100 mg Capsule 100 mg PO BID PRN (Reason: Constipation) RF: 0 finasteride 5 mg Tablet 5 mg PO DAILY RF: 0 Changed metformin [Glucophage] 500 mg Tablet 500 mg PO DAILY Qty: 0 RF: 0 Stand-Alone Forms: [facility] Discharge Orders: Discharge Order (Routine); Ordered 09/22/18 Ordered By: Nav Ashford Admission Data Admit Date/Time: 09/14/18 18:17 Attending Provider: Geetha Ennis Admit Provider: Geetha Ennis Primary Care Provider: Erich Moreno Other Providers: Geetha Ennis ; Harrison Moreno ; Georgina [place] Service: Telemetry Other Interventions: Discharge Summary Assessment (RN) Last Done: 09/22/18 08:55 DC Date/Time DO NOT enter until pt leaves facility: 09/22/18 09:30
== END 2018-09-22 09:30 | disposition hospice, home (50) | DRG 291 ==
LOC: ED 15:23 → 2N 18:17